=== PATIENT | male | born 1955 | race Caucasian/White ===

== ENCOUNTER 2020-11-01 16:07 | Outpatient (CLI) | payer BC, SELFPAY ==
--- NOTE | ~2020-11-01 | CT_ITS ---
EXAMINATION: CT abdomen pelvis wo con EXAM DATE: 11/01/2020 16:32 INDICATION: Prostate cancer, pelvic pain for one month. Prostatectomy. TECHNIQUE: Spiral CT of the abdomen and pelvis was performed without contrast. Axial, coronal and s agittal images were reviewed. The dose-length product (DLP) for this examination was 1150.24 mGy-cm. The exposure was tailored according to patient size (auto mA exposure control), and iterative recon struction (ASIR) was used as additional dose reduction technique. There is no prior study for compar christy. FINDINGS: The liver, spleen, adrenal glands and pancreas are unremarkable. Gallbladder is unremarkab le. No biliary obstruction. Bilateral renal peripelvic cysts. Punctate bilateral nephrolithiasis. No ureteral stones or hydronephrosis. Patient has likely had prostatectomy. The bladder is unremarkab le. There is no retroperitoneal or pelvic lymphadenopathy. There is mild scattered arterioscleroti c disease. The appendix is not positively visualized. There is no pericecal inflammatory change to suggest appe ndicitis. There is moderate sigmoid predominant colonic diverticulosis. There is no adjacent inflamm atory change to suggest diverticulitis. The stomach and small bowel are unremarkable. There is expec giovanna amount of colonic stool. No free intraperitoneal gas. The heart is normal in size. There are no pericardial or pleural effusions. The lung bases are unremarkable. 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 There are no osteoblastic or osteolytic lesions identified . IMPRESSION: 1. No acute intra-abdominal findings. 2. Moderate sigmoid diverticulosis. 3. Punctate bilateral nephrolithiasis. Reviewed, dictated and finalized at location A. SUPERINTENDENT
== END 2020-11-01 16:08 | disposition home or self-care (01) ==
PROVIDERS: PCP Internal Medicine; Visit Provider Urology
DX: C61 Malignant neoplasm of prostate (principal); K57.30 Diverticulosis of large intestine without perforation or abscess without bleeding; N20.0 Calculus of kidney
CPT/HCPCS: 74176

== ENCOUNTER 2025-01-11 15:47 | Outpatient (CLI) | payer MEDICARE, SELFPAY ==
--- NOTE | ~2025-01-11 | CT_ITS ---
CLINICAL INDICATION: Left ureteral stone COMPARISON: 11/01/2020. TECHNIQUE: Multiple contiguous axial images of the abdomen and pelvis were performed without the admi nistration of intravenous contrast The dose-length product (DLP) was 323.16 mGy-cm. Automated exposure control and iterative reconstruction technique were employed. FINDINGS/OBSERVATIONS: Visualized lower thorax: The bilateral lung bases are clear. The heart is of normal size, without pericardial effusion. Small hiatal hernia is present. Liver: The liver demonstrates homogeneous attenuation and is not enlarged measuring 18 cm in longitudinal di mension. Gallbladder and biliary system: The gallbladder is only minimally distended, and otherwise unremarkable. Pancreas: Limited evaluation of the pancreas secondary to the lack of intravenous contrast. Spleen: The spleen demonstrates homogeneous attenuation and is not enlarged measuring 8 cm in longitudinal di mension. Kidneys: Left-sided hydronephrosis, increased from prior, secondary to a 4 mm calculus in the distal left uret er, approximately 7 mm from the left ureterovesicular junction. 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 No renal calculi. Adrenal glands: Unremarkable. Gastrointestinal tract: Colonic diverticulosis without surrounding inflammatory change. Appendix: The appendix is not definitively visualized. However, no pericecal inflammatory change is identified suggest the presence of acute appendicitis. Vasculature: Calcified atherosclerotic disease. Lymph nodes: No pathologically enlarged or morphologically suspicious lymph nodes within the retroperitoneum or at the root of the mesentery. Pelvic structures: The bladder is minimally distended, and otherwise unremarkable. The prostate gland is absent. Body wall and musculoskeletal: Small fat-containing umbilical hernia. Degenerative disease within the lower lumbar spine at the level of L4/L5 with osteophyte formation, d isc space narrowing, endplate changes and vacuum phenomena. IMPRESSION: Left-sided hydroureteronephrosis secondary to a 4 mm calculus within the distal left ureter, just pro ximal to the left UVJ. Reviewed, dictated and finalized at location A. IMPRESSION: Left-sided hydroureteronephrosis secondary to a 4 mm calculus within the distal left ureter, just proximal to the left UVJ.
--- NOTE | ~2025-01-11 | XR_ITS ---
Exam: Abdomen 1V HISTORY: LT URETERAL STONE COMPARISON: Reference is made to a CT examination of the abdomen and pelvis, completed approximately 10 minutes earlier TECHNIQUE: Supine images of the abdomen FINDINGS: Bowel gas pattern is non-obstructive. There is no free air or deep sulci. 4 mm calculus within the left hemipelvis, approximately 16 mm lateral to the microclip. Lung bases are unremarkable. Bones and soft tissues are unremarkable. IMPRESSION: Nonspecific, nonobstructive bowel gas pattern. 4 mm calculus within the left hemipelvis, corresponding to the obstructing calculus seen today's CT e xamination. Reviewed, dictated and finalized at location A. IMPRESSION: Nonspecific, nonobstructive bowel gas pattern. 4 mm calculus within the left hemipelvis, corresponding to the obstructing calc ulus seen today's CT examination.
--- OUTSIDE RECORDS SUMMARY | 2025-01-11 17:42 | XMS_ITS | Clinical Summary ---
Author Organization [facility] Care Team Providers Care Cutter Hot Knife Name Role Phone Jose Marroquin MD Primary Care Provider [phone] Allergies No known active allergies Medications Aspirin 81 MG Tablet Take by mouth. Activ e Ibuprofen 200 MG Capsule Active LORazepam (ATIVAN) 1 MG Tablet Take by mouth. 3 Active esomeprazole (NEXIUM) 20 MG CAPSULE DELAYED RELEASE Take 1 Cap by mouth daily. 60 Cap 0 6 Active Additional Information Patient not taking.Reported on 05/08/2023 atorvastatin (LIPITOR) 10 MG Tablet TAKE ONE TABLET BY MOUTH EVERY NIGHT AT BEDTIME 90 Tab 3 6 Active lisinopril (PRINIVIL, ZESTRIL) 10 MG Tablet TAKE ONE TABLET BY MOUTH EVERY DAY 90 Tab 3 6 Active esomeprazole (NEXIUM) 40 MG CAPSULE DELAYED RELEASE Take 1 Cap by mouth daily. 30 Cap 5 6 Active levothyroxine (SYNTHROID) 25 MCG Tablet Take 1 Tab by mouth daily. 90 Tab 2 6 Active benazepril (LOTENSIN) 40 MG Tablet 3 Active amLODIPine (NORVASC) 5 MG Tablet Take 5 mg by mouth daily. 3 Active methylPREDNISol one (MEDROL DOSPACK) 4 MG Tablet Therapy Pack Use as per instructions on package. 21 Tablet 3 Active Active Problems Problem Noted Date Diagnosed Date HTN (hypertension) 11/03/2015 Hyperlipidemia 11/03/2015 Hypothyroidism 11/03/2015 Neoplasm of uncertain behavior of skin Immunizations Immunization Administration Dates Next Due Covid-19, Mrna, Lnp-s, Pf, 30 Mcg/0.3 Ml Dose (P fizer) 01/05/2021 Influenza Vaccine greater than 3 yrs 07/27/2014 Influenza, high-dose, trivalent, PF 07/28/2020,1 Pneumococcal Vaccine - 13 Valent 07/25/2020 TD VACCINE 10/27/2010 Zoster Vaccine Recombinant 06/30/2019,03/25/2019 Zoster Vaccine, live 10/27/2013 Family History Medical History Relation Name Comments No Known Problems Brother Cancer Father Cancer Mother Heart Disease Mother No Known Problems Sister Relation Name Status Comments Brother Alive Father Mother Sister Social History Tobacco Use Types Packs/Day Years Used Date Smoking Tobacco: Never Tobacco Cessation:Counseling Given: Not Answered Alcohol Use Standard Drinks/Week Comments Yes 0 (1 standard drink = 0.6 oz pur e alcohol) Sexually Active Control Partners Comments Not Currently Sex and Gender Information Value Date Recorded Sex Assigned at Not on file Legal Sex Male 1:16 PM CDT Gender Identity Not on file Sexual Orientation Not on file Last Filed Vital Signs Vital Sign Reading Time Taken Comments Blood Pressure 128/78 05/08/2023 8:00 AM CDT Pulse 73 05/08/2023 8:00 AM CDT Temperature 36.6 C (97.9 F) 05/08/2023 8:00 AM CDT Respiratory Rate 22 05/08/2023 8:00 AM CDT Oxygen Saturation 97% 05/08/2023 8:00 AM CDT Inhaled Oxygen Concentration - - Weight 108.9 kg (240 lb) 11/03/2015 4:09 PM HORSES OR MULES TEAMSTER Height 185.4 cm (6' 1 ) 11/03/2015 4:09 PM HORSES OR MULES TEAMSTER Body Mass Index 31.66 11/03/2015 4:09 PM HORSES OR MULES TEAMSTER Plan of Treatment Health Maintenance Due Date Last Done Comments Hepatitis C Virus (HCV) Screening 1955 Cologuard 2005 Immunochemical Fecal Occult Blood 2005 PSA Discussion 2010 Influenza Immunization (#1) 2024 10/0 03/2022, 08/18/2021, 07/28/2020, Additional history exists SARS-COV-2 Immunization ( season) 2024 10/11/2022, 06/05/2022, 08/03/2021, Additional history exists Respiratory Syncytial Virus (RSV) Immunization (Adult) (1 - 1-dose 75+ series) 2030 Colonoscopy 12/18/2031 12/18/2021, 10/05/2015 Colorectal Cancer Screening 12/18/2031 12/18/2021, 10/05/2015 Zoster Immunization Completed 06/30/2019, 03/25/2019, 02/25/2019, Additional history exists DTaP/Tdap/Td Immunization Discontinued 03/12/2021, 10/2010 TdaP Immunization Completed 03/12/2021 Pneumococcal Immunization (50+ years) Completed 08/18/2021, 07/25/2020 Pneumococcal Immunization Combined Discontinued 08/18/2021, 07/25/2020 Hepatitis B Immunization Aged Out No longer eligible based on patient's age to complete this topic Meningococcal Immunization (ACWY) Aged Out No longer eligible based on patient's age to complete this topic Rotavirus Immunization Aged Out No lo nger eligible based on patient's age to complete this topic Procedures Procedure Name Priority Date/Time Associated Diagnosis Comments COLONOSCOPY Routine 10/05/2015 from Last 3 Months or Most Recently Relevant to Health Maintenance Results * COLONOSCOPY (10/05/2015) Vivek Leija Jr., MD PROCEDURE/[facility] [place] GICAL ORDERABLES Final Result from Last 3 Months or Most Recently Relevant to Health Maintenance Insurance [employer]ARE Care Teams Cutter Hot Knife Relationship Specialty Start Date End Date Jose Marroquin MD PCP - General Internal Medicine 01/18/22
--- OUTSIDE RECORDS SUMMARY | 2025-01-11 17:42 | XMS_ITS | Clinical Summary ---
Author Organization [facility] Address [address] [place] [address] Care Team Providers Care Insurance Examiner Name Role Phone Rashaad Patino MD Primary Care Provider [phone] Source Comments [facility],non-owned Affiliates and Associated Physician Practices is amultiple site organization consisting of ambulatory clinics and hospital sitesin [place], [place], [place] and [place]. This disclosure is being madepursuant to the Care Everywhere program and may not contain all information available regarding this patient. Last updated 18.[facility] Allergies No known active allergies Medications * Be aware that medications may not be up to date on this document. Alwaysverify current medications with the patient. Medication Sig Dispensed Refills Start Date End Date Status atorvastatin (LIPITOR) 10 MG tablet Take 10 mg by mouth once daily Filled 10/30/20 for 90 days Active Esomeprazole Magnesium (NEXIUM PO) Take 40 mg by mouth daily with dinner Active Cholecalciferol 25 MCG (1000 UT) Take 1,000 Units by mouth once daily OTC - pt reports taking Active levothyroxine (SYNTHROID) 25 MCG tablet Take 25 mcg by mouth daily before breakfast Filled 10/30/20 for 90 days 10/30/2020 Active Multiple Vitamin (MULTI-VITAMIN) TABS Take 1 tablet by mouth Active GLUCOSAMINE-CHONDR OITIN PO Take 1 tablet by mouth once daily OTC supplement - pt reports taking it Active docusate sodium (COLACE) 100 MG capsule Take 100 mg by mouth 2 times daily as needed for Constipation For narcotic-induced constipation Active gabapentin (NEURONTIN) 300 MG capsule Take 600 mg by mouth 3 times daily Filled 12/09/20 for 30 days Active oxyCODONE-acetamin ophen (PERCOCET) 10-325 MG tablet Take 1 (one) tablet by mouth every 6 hours as needed for Pain Filled 12/01/20 for #120 tabs 12 tablet 12/21/2020 Active lisinopril (PRINIVIL; ZESTRIL) 10 MG tablet Take 1 (one) tablet by mouth once daily 12/21/2020 Active cyclobenzaprine (FLEXERIL) 10 MG tablet Take 1 (one) tablet by mouth 3 times daily as needed for Muscle Spasms Filled 12/01/20 for 30 days 30 tablet 12/21/2020 Active Active Problems Problem Noted Date Diagnosed Date Left leg pain 12/20/2020 Numbness of perineum 12/20/2020 Uncontrolled pain 12/20/2020 Family History Medical History Relation Name Comments Hypercholesterolemia Brother 2 Hypertension Brother 3 CAD (Coronary Artery Disease) Father Cancer Father Hypercholesterolemia Father Hypertension Father CAD (Coronary Artery Disease) Mother Cancer Mother Hypercholesterolemia Mother Hypertension Mother Cancer Sister 2 Relation Name Status Comments Brother 1 Alive Brother 2 Brother 3 Father Mother Sister 1 Sister 2 Social History Tobacco Use Types Packs/Day Years Used Date Smoking Tobacco: Never Alcohol Use Standard Drinks/Week Comments Yes 0 (1 standard drink = 0.6 oz pur e alcohol) Sex and Gender Information Value Date Recorded Sex Assigned at Not on file Gender Identity Not on file Sexual Orientation Not on file Last Filed Vital Signs Vital Sign Reading Time Taken Comments Blood Pressure 138/82 12/21/2020 11:00 AM PROTECTION CONSULTANT Pulse 82 12/21/2020 11:00 AM PROTECTION CONSULTANT Temperature 37 C (98.6 F) 12/21/2020 11:00 AM PROTECTION CONSULTANT Respiratory Rate 18 12/21/2020 11:00 AM PROTECTION CONSULTANT Oxygen Saturation 98% 12/21/2020 11:00 AM PROTECTION CONSULTANT Inhaled Oxygen Concentration - - Weight 104.3 kg (230 lb) 12/20/2020 1:41 PM PROTECTION CONSULTANT Height 185.4 cm (6' 1 ) 12/20/2020 1:41 PM PROTECTION CONSULTANT Body Mass Index 30.34 12/20/2020 1:41 PM PROTECTION CONSULTANT Plan of Treatment Health Maintenance Due Date Last Done Comments COLOGUARD (AGES 45-75) - COL ON CA SCREENING 1955 COLON MONITORING 1955 COLONOSCOPY - COLON CA SCREENING 1955 CT COLONOGRAPHY - COLON CA SCREENING 1955 Colorectal Cancer Screening 1955 FIT - COLON CA SCREENING 1955 FLEX SIG - COLON CA SCREENING 1955 HEPATITIS C SCREENING 03/28/1973 DTAP/TDAP/TD VACCINES (1 - Tdap) 1974 PNEUMOCOCCAL VACCINE 50+ (1 of 1 - PCV) 2005 ZOSTER VACCINE (1 of 2) 2005 SCREENING FOR DIABETES 12/21/2023 1, 12/20/2020, 09/22/2020 COVID-19 VACCINE (1 - 2023-2 5 season) 2024 INFLUENZA VACCINE (#1) 2024 07/27/2014 DEPRESSION SCREENING 10/27/2024 Respiratory Syncytial Virus (RSV) Vaccine Pt: or over 60 yrs (1 - 1-dose 75+ series) 2030 HEPATITIS B VACCINE Aged Out No longe r eligible based on patient's age to complete this topic HIB VACCINE Aged Out No longer eligi ble based on patient's age to complete this topic HPV VACCINE Aged Out No longer eligi ble based on patient's age to complete this topic MENINGOCOCCAL (Group B) VACCINE SHARED DECISION-MAKING Aged Out No longer eligible based on patient's age to complete this topic MENINGOCOCCAL GROUPS A/C/Y/W VACCINE Aged Out No longer eligible b ased on patient's age to complete this topic Procedures Procedure Name Priority Date/Time Associated Diagnosis Comments BASIC METABOLIC PANEL (CALCIUM TOTAL) AM Draw 12/21/2020 4:52 AM PROTECTION CONSULTANT Numbness of perineum from Last 3 Months or Most Recently Relevant to Health Maintenance Results * (ABNORMAL) BASIC METABOLIC PANEL (CALCIUM TOTAL) (12/21/2020 4:52 AM PROTECTION CONSULTANT) Glucose 97 70 - 105 mg/dL 12/21/2020 5:37 AM PROTECTION CONSULTANT [facility] Sodium 135(L) 136 - 145 mmol/L 12/21/2020 5:37 AM PROTECTION CONSULTANT [facility] Potassium 4.2 3.5 - 5.1 mmol/L 12/21/2020 5:37 AM PROTECTION CONSULTANT [facility] Chloride 107 98 - 107 mmol/L 12/21/2020 5:37 AM [facility] CO2 22(L) 23 - 31 mmol/L 12/21/2020 5:37 AM PROTECTION CONSULTANT [facility] Calcium 8.7 8.4 - 10.4 mg/dL 12/21/2020 5:37 AM [facility] Anion Gap 6(L) 8 - 18 mmol/L 12/21/2020 5:37 AM [facility] Comment:Attention clinician: Reference Range change. BUN 24 8.4 - 25.7 mg/dL 12/21/2020 5:37 AM [facility] Creatinine 0.79 0.72 - 1.25 mg/dL 12/21/2020 5:37 AM [facility] eGFR by MDRD >60 >60 mL/min/1.7 3m2 12/21/2020 5:37 AM [facility] eGFR by MDRD >60 >60 mL/min/1.7 3m2 12/21/2020 5:37 AM [facility] Blood BLOOD SPECIMEN / Unknown Venipuncture / Unknown 12/21/2020 4:52 AM PROTECTION CONSULTANT 12/21/2020 5:02 AM PROTECTION CONSULTANT Ro Solorio APRN-[facility] - POLICE JUDGE RY ORDERABLES [facility] [address] [place] [address] from Last 3 Months or Most Recently Relevant to Health Maintenance Advance Directives * Full Code (Latest Code Status on File) Date Activated Date Inactivated Comments 12/20/2020 3:36 PM 12/21/2020 12:23 PM Care Teams Insurance Examiner Relationship Specialty Start [place] [id number] [id number] PCP - General Internal Medicine 09/22/20
--- OUTSIDE RECORDS SUMMARY | 2025-01-11 17:42 | XMS_ITS ---
Author Organization [facility] Address [address] [place] [address] Care Team Providers Care Coil Inspector Name Role Phone Moise Flores MD Primary Care Provider Mario Banda MD Unavailable [phone] Charles Mina MD Unavailable [phone] Leopoldo Cutler MD Unavailable [phone] Shari Gaston MD Unavailable [phone] Active Problems Problem Noted Date Diagnosed Date Renal colic on left side 01/02/2025 History of colon polyps 11/25/2024 Assessment & Plan (11/25/2024 9:34 AM SLIP SEAT COVERER): - last colonoscopy 2021, repeat in 3-5 years, he has opted to repeat in 5 years per patient Basal cell carcinoma (BCC) of skin of nose 10/24 Assessment & Plan (11/25/2024 9:37 AM SLIP SEAT COVERER): - recent diagnosis from dermatology by Dr. Gaston - scheduled for Mohs surgery on 02/2025 Primary osteoarthritis of right knee 04/27/2024 Overview (11/25/2024): Follows with orthopedics Assessment & Plan (11/25/2024 9:26 AM SLIP SEAT COVERER): - chronic, recurring condition, not at goal - hx of remote injury of meniscus in right knee - follows with orthopedics and gets injections every 3 months, Dr. Banda - ok to use very sporadic use of NSAID Assessment & Plan (04/27/2024 8:56 AM CDT): - hx of remote injury of meniscus in right knee - follows with orthopedics and gets injections Situational anxiety 04/27/2024 Overview (04/27/2024): With flights Assessment & Plan (04/27/2024 9:06 AM CDT): - has used alprazolam for flights only for anxiety when flying in airplanes Erectile dysfunction 04/27/2024 Assessment & Plan (04/27/2024 9:13 AM CDT): - chronic condition - since prostatectomy - follows with urology - has tried medications and then injectables which do work for him - continue current management Healthcare maintenance 04/15/2023 Assessment & Plan (04/15/2023 3:27 PM CDT): Flu shot each July. COVID booster when next when available. Prevnar 13/Pneumovax 23 completed. Check on status of last tetanus booster. Shingrix completed. PSA yearly. Colonoscopy due November 2024. Will see him back in 6 months with lab sooner if needed. History of diverticulitis 2023 Overview (04/27/2024): Reprots 3 incidents, 2 times was treated with antibiotics Assessment & Plan (05/18/2023 1:54 PM CDT): May have had a viral issue or food-borne illness on top of his diverticulitis. Complete 3 more days of antibiotics. Start probiotics. Stool studies and call back for results. History of anemia 03/11/2022 Overview (04/15/2023): TSH, free T4 normal February 2022. Iron/ferritin low 02/2022. Colon with polyps 11/2021. Hgb/ferritin normalized after iron supplement and no blood donations. Anemia returned after donating 02/2023. Donates every 8 weeks. Assessment & Plan (11/25/2024 9:30 AM SLIP SEAT COVERER): - hx of anemia, not present now - recheck labs, order placed with results as shown below - has been on iron supplementation in the past - on daily multivitamin with iron - up to date with colonoscopy Lab Results Component Value Date WBC 5.7 11/19/2024 HGB 13.9 11/19/2024 HCT 43.5 11/19/2024 MCV 90.8 11/19/2024 LABPLAT 328 11/19/2024 Lab Results Component Value Date IRON 93 11/19/2024 TIBC 434 (H) 11/19/2024 FERRITIN 15 (L) 11/19/2024 Assessment & Plan (05/09/2024 11:05 PM CDT): - hx of anemia - recheck labs, order placed with results as shown below - has rose on iron supplementation in the past - up to date with colonoscopy Lab Results Component Value Date WBC 4.6 04/27/2024 HGB 14.1 04/27/2024 HCT 43.6 04/27/2024 MCV 86.7 04/27/2024 LABPLAT 320 04/27/2024 Lab Results Component Value Date IRON 75 04/27/2024 TIBC 386 04/27/2024 FERRITIN 24 (L) 04/27/2024 Assessment & Plan (04/15/2023 3:25 PM CDT): Recommend iron supplementation for 1 month after each donation. Check CBC in 1 year. Assessment & Plan (09/12/2022 1:55 PM SLIP SEAT COVERER): Hemoglobin and ferritin normalized after iron supplementation and holding blood donation. Repeat CBC before next visit. Assessment & Plan (03/11/2022 1:40 PM CDT): Probably due to frequent blood donation and iron deficiency. Check iron levels, B12, folate today. Thyroid studies currently normal for today's visit. Hold on blood donation until hemoglobin back to normal. Impaired fasting glucose 09/06/2021 Assessment & Plan (11/25/2024 9:29 AM SLIP SEAT COVERER): - chronic condition, waxes and wanes - Patient should reduce sugar and carbs, increase exercise, maintain proper body weight, and will check an A1c once or twice yearly. - most recent labs as shown below Lab Results Component Value Date HGBA1C 5.6 11/19/2024 HGBA1C 6.0 (H) 04/27/2024 HGBA1C 5.5 10/10/2023 Assessment & Plan (04/27/2024 9:16 AM CDT): Patient should reduce sugar and carbs, increase exercise, maintain proper body weight, and will check an A1c once or twice yearly. Lab Results Component Value Date HGBA1C 5.5 10/10/2023 HGBA1C 5.4 04/14/2023 HGBA1C 4.9 03/06/2022 Assessment & Plan (12/20/2023 10:37 AM SLIP SEAT COVERER): Patient should reduce sugar and carbs, increase exercise, maintain proper body weight, and will check an A1c once or twice yearly. Assessment & Plan (04/15/2023 3:26 PM CDT): Patient should reduce sugar and carbs, increase exercise, maintain proper body weight, and will check an A1c once or twice yearly. Assessment & Plan (09/12/2022 1:54 PM SLIP SEAT COVERER): Patient should reduce sugar and carbs, increase exercise, maintain proper body weight, and will check an A1c once or twice yearly. Assessment & Plan (03/11/2022 1:39 PM CDT): Patient should reduce sugar and carbs, increase exercise, maintain proper body weight, and will check an A1c once or twice yearly. Assessment & Plan (11/07/2021 10:21 AM SLIP SEAT COVERER): Patient should reduce sugar and carbs, increase exercise, maintain proper body weight, and will check an A1c once or twice yearly. Assessment & Plan (09/06/2021 9:28 AM SLIP SEAT COVERER): Patient should reduce sugar and carbs, increase exercise, maintain proper body weight, and will check an A1c once or twice yearly. Idiopathic neuropathy 03/01/2021 Overview (03/01/2021): Work up neg per Dr Brown. Assessment & Plan (04/27/2024 9:10 AM CDT): - chronic condition, progressive - unclear etiology, evaluated by Neurology Dr. 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 Reduce alcohol intake and take a multivitamin. History of pulmonary embolism 12/31/2020 Assessment & Plan (04/27/2024 9:07 AM CDT): Provoked pulmonary embolism (6 days after back surgery, immobility) - completed 6 months of anticoagulation with end date of June 2021. Assessment & Plan (03/01/2021 3:58 PM CDT): Provoked pulmonary embolism and would recommend 6 months of anticoagulation with end date of June 2021. History of back surgery 12/31/2020 Assessment & Plan (04/27/2024 9:05 AM CDT): - several years ago had severe pain in left buttocks and down into left leg, lumbar radiculopathy, L3-L4 protruding disc, lumbar radiculopathy - went to neurosurgery x 2 - was seeing pain management at [facility] - eventually became bed ridden - then got referred to a surgeon who saw his MRI and reports he diagnosed him and operated on him and gave him relief of pain and ability to talk - since surgery has numbness in posterior left thigh - uses Flexeril 10 mg as needed, which he has not taken in almost 6 months or more (initially started by pain management) - no longer following with pain management, no ongoing back pain now Acquired hypothyroidism 12/31/2020 Assessment & Plan (11/25/2024 9:23 AM SLIP SEAT COVERER): - chronic condition, stable status - Patient is asymptomatic on current dose of levothyroxine and TSH free T4 are normal and we will repeat levels before next visit. - continue current management Lab Results Component Value Date TSH 1.51 11/19/2024 Assessment & Plan (04/27/2024 8:56 AM CDT): - chronic condition, stable status - Patient is asymptomatic on current dose of levothyroxine and TSH free T4 are normal and we will repeat levels before next visit. - continue current management Lab Results Component Value Date TSH 1.06 10/10/2023 Assessment & Plan (12/20/2023 10:36 AM SLIP SEAT COVERER): Patient is asymptomatic on current dose of levothyroxine and TSH free T4 are normal and we will repeat levels before next visit. Assessment & Plan (04/15/2023 3:25 PM CDT): Patient is asymptomatic on current dose of levothyroxine and TSH free T4 are normal and we will repeat levels before next visit. Assessment & Plan (09/12/2022 1:55 PM SLIP SEAT COVERER): Patient is asymptomatic on current dose of levothyroxine and TSH free T4 are normal and we will repeat levels before next visit. Assessment & Plan (03/11/2022 1:38 PM CDT): Patient is asymptomatic on current dose of levothyroxine and TSH free T4 are normal and we will repeat levels before next visit. Assessment & Plan (11/07/2021 10:20 AM SLIP SEAT COVERER): Continue current dose of levothyroxine check levels before next visit. Assessment & Plan (09/06/2021 9:26 AM SLIP SEAT COVERER): Patient is asymptomatic on current dose of levothyroxine and TSH free T4 are normal and we will repeat levels before next visit. Assessment & Plan (03/01/2021 3:55 PM CDT): Continue current dose of levothyroxine and check levels before next visit. Essential hypertension 12/31/2020 Overview (11/07/2021): Significant swelling on amlodipine Assessment & Plan (11/25/2024 9:39 AM SLIP SEAT COVERER): Blood Pressure Management BP Readings from Last 3 Encounters: 11/25/24 132/78 10/07/24 126/70 07/08/24 144/84 Chronic condition Status - is adequately controlled. Current medications are: Amlodipine 5 mg daily, Benazepril 40 mg daily Patient is compliant with medications. Patient denies any side effects or adverse side effects from the medication/s. Follow a low salt diet Monitor blood pressure regularly at home The current medical regimen is effective; continue present plan and medications. The 10-year ASCVD risk score (Vanita HUNTLEY, et al., 2019) is: 18.5% Values used to calculate the score: Age: 69 years Sex: Male Is Non- : No Diabetic: No Tobacco smoker: No Systolic Blood Pressure: 132 mmHg Is BP treated: Yes HDL Cholesterol: 57 mg/dL Total Cholesterol: 184 mg/dL Lab Results Component Value Date LDLCALC 104 04/27/2024 Lab Results Component Value Date GLUCOSE 114 11/19/2024 CALCIUM 10.0 11/19/2024 SODIUM 140 11/19/2024 POTASSIUM 4.6 11/19/2024 CO2 26 11/19/2024 CHLORIDE 104 11/19/2024 BUNSER 22 11/19/2024 CREATININE 1.00 11/19/2024 Assessment & Plan (04/27/2024 8:55 AM CDT): Blood Pressure Management BP Readings from Last 3 Encounters: 04/27/24 122/88 03/30/24 142/93 12/18/23 132/86 Chronic condition Status - is adequately controlled. Current medications are: Amlodipine 5 mg daily, Benazepril 40 mg daily Patient is compliant with medications. Patient denies any side effects or adverse side effects from the medication/s. Follow a low salt diet Monitor blood pressure regularly at home Continue current management unless change made above The 10-year ASCVD risk score (Vanita HUNTLEY, et al., 2019) is: 14.2% Values used to calculate the score: Age: 69 years Sex: Male Is Non- : No Diabetic: No Tobacco smoker: No Systolic Blood Pressure: 122 mmHg Is BP treated: Yes HDL Cholesterol: 70 mg/dL Total Cholesterol: 169 mg/dL Lab Results Component Value Date LDLCALC 85 10/10/2023 Lab Results Component Value Date GLUCOSE 82 10/10/2023 CALCIUM 9.6 10/10/2023 SODIUM 140 10/10/2023 POTASSIUM 4.4 10/10/2023 CO2 25 10/10/2023 CHLORIDE 106 10/10/2023 BUNSER 26 (H) 10/10/2023 CREATININE 1.03 10/10/2023 Assessment & Plan (12/20/2023 10:37 AM SLIP SEAT COVERER): Blood pressure well controlled on amlodipine, benazepril Assessment & Plan (04/15/2023 3:26 PM CDT): Blood pressure well controlled on amlodipine, benazepril Assessment & Plan (09/12/2022 1:55 PM SLIP SEAT COVERER): Well controlled on the current regimen. Avoidance of salt, proper body weight, and routine exercise recommended. Assessment & Plan (03/11/2022 1:38 PM CDT): Well controlled on the current regimen. Avoidance of salt, proper body weight, and routine exercise recommended. Assessment & Plan (11/07/2021 10:20 AM SLIP SEAT COVERER): Edema resolved with discontinuation of amlodipine. Blood pressure well controlled on benazepril 40 mg daily. Check metabolic panel again before next visit. Assessment & Plan (09/06/2021 9:28 AM SLIP SEAT COVERER): Blood pressure close to goal but his swelling may be from amlodipine. If decreasing salt in his diet does not help And if his ultrasound is negative for DVT, consider Discontinue amlodipine. Will then increase lisinopril and check metabolic panel will see him back in 2 months for this evaluation. Assessment & Plan (03/01/2021 3:55 PM CDT): Well controlled on the current regimen. Avoidance of salt, proper body weight, and routine exercise recommended. History of prostate cancer 12/31/2020 Overview (03/01/2021): S/p prostatectomy 08/2018, Followed by Dr mina with PSA q 6 months Assessment & Plan (11/25/2024 9:28 AM SLIP SEAT COVERER): - S/p prostatectomy 08/2018, Followed by Dr mina with PSA q 6 months - Follow-up with his urologist for JERRY and PSAs as they direct. - PSA done by Urology Assessment & Plan (04/27/2024 8:55 AM CDT): - S/p prostatectomy 08/2018, Followed by Dr mina with PSA q 6 months - Follow-up with his urologist for JERRY and PSAs as they direct. Assessment & Plan (03/11/2022 1:39 PM CDT): Follow-up with his urologist for JERRY and PSAs as they direct. Assessment & Plan (03/01/2021 3:55 PM CDT): Followed by urology with PSAs checked every 6 months per patient's report. Currently no symptoms. Gastroesophageal reflux disease 05/07/2016 Assessment & Plan (11/25/2024 9:27 AM SLIP SEAT COVERER): - chronic condition, stable status - currently on generic Nexium - esomeprazole DR 40 mg daily The current medical regimen is effective; continue present plan and medications. Assessment & Plan (04/27/2024 8:57 AM CDT): - chronic condition, stable status - currently on generic Nexium - esomeprazole DR 40 mg daily - continue current management Assessment & Plan (03/11/2022 1:39 PM CDT): Well controlled on generic Nexium. Assessment & Plan (03/01/2021 3:55 PM CDT): Continue current PPI and the patient is aware of the long-term risks posed by chronic PPI usage. Calcium supplementation recommended. Mixed hyperlipidemia 11/03/2015 Assessment & Plan (11/25/2024 9:27 AM SLIP SEAT COVERER): - chronic condition - status: is adequately controlled. - current management/medications: Atorvastatin 10 mg nightly - other comorbid conditions:Obesity, hypertension - patient is compliant with medications. - most recent LDL as shown below - maintain a healthy weight, diet - will monitor closely - continue current management Lab Results Component Value Date CHOL 184 04/27/2024 CHOL 169 10/10/2023 CHOL 187 04/14/2023 Lab Results Component Value Date HDL 57 04/27/2024 HDL 70 10/10/2023 HDL 51 04/14/2023 Lab Results Component Value Date LDLCALC 104 04/27/2024 LDLCALC 85 10/10/2023 LDLCALC 85 04/14/2023 Lab Results Component Value Date TRIG 114 04/27/2024 TRIG 71 10/10/2023 TRIG 255 (H) 04/14/2023 Lab Results Component Value Date ALT 20 11/19/2024 AST 17 11/19/2024 ALKPHOS 60 11/19/2024 BILITOT 0.5 11/19/2024 Assessment & Plan (04/27/2024 8:57 AM CDT): - chronic condition - status: is adequately controlled. - current management/medications: Atorvastatin 10 mg nightly - other comorbid conditions:Obesity, hypertension - patient is compliant with medications. - most recent LDL as shown below - maintain a healthy weight, diet - will monitor closely - continue current management Lab Results Component Value Date LDLCALC 85 10/10/2023 Lab Results Component Value Date ALT 16 10/10/2023 AST 20 10/10/2023 ALKPHOS 61 10/10/2023 BILITOT 0.5 10/10/2023 Assessment & Plan (12/20/2023 10:37 AM SLIP SEAT COVERER): Well controlled on current therapy and will check a lipid panel and LFTs in 6 months. Assessment & Plan (04/15/2023 3:26 PM CDT): Well controlled on current therapy and will check a lipid panel and LFTs in 6 months. Diet and exercise for elevated triglycerides. Assessment & Plan (09/12/2022 1:54 PM SLIP SEAT COVERER): Well controlled on current therapy and will check a lipid panel and LFTs in 6 months. Assessment & Plan (03/11/2022 1:39 PM CDT): Well controlled on current therapy and will check a lipid panel and LFTs in 6 months. Assessment & Plan (11/07/2021 10:21 AM SLIP SEAT COVERER): Continue his atorvastatin check lipids and LFTs before next visit. Assessment & Plan (09/06/2021 9:27 AM SLIP SEAT COVERER): Well controlled on current therapy and will check a lipid panel and LFTs in 6 months. If lower extremity crampy pain does not improve, consider holding statin therapy for trial. Assessment & Plan (03/01/2021 3:56 PM CDT): Continue current dose of atorvastatin and check lipids and LFTs before next visit. Current Treatment and Therapy Plans No current plan information found. Past Treatment and Therapy Plans No past plan information found. Lifetime Dose Tracking * Chemical Lifetime Dose Automatic Entry Manual Entr y Fluoro Time 0.507 minutes 0.507 minutes 0 minutes Air kerma at the reference point (Ka,r) 15.31 mGy 1 5.31 mGy 0 mGy Resolved Problems Problem Noted Date Diagnosed Date Resolved Date Chronic pain of right knee 04/15/2023 0 04/27/2024 Assessment & Plan (04/15/2023 3:26 PM CDT): Continue Voltaren gel and recommend orthopedic referral. Right hip pain 04/15/2023 04/27/2024 Assessment & Plan (04/15/2023 3:27 PM CDT): Orthopedic referral Diarrhea 2023 04/27/2024 Assessment & Plan (05/18/2023 1:54 PM CDT): Stool studies and call back for results. Renal insufficiency 2023 04/27/20 24 Assessment & Plan (05/18/2023 1:54 PM CDT): Increase hydration check metabolic panel before next visit Abnormal transaminases 09/12/202204/27 Assessment & Plan (09/12/2022 1:55 PM SLIP SEAT COVERER): Most likely related to his episode of diverticulitis. LFTs before next visit. Lower abdominal pain 08/28/2022 024 Assessment & Plan (08/28/2022 11:01 AM CDT): RLQ on exam. Suspicious for Diverticulitis. STAT CT abdomen and Pelvis ordered. Labs ordered and UA ordered to rule out UTI. Discussed with patient. Will call him with results by the end of the day. F/u with Dr. Marroquin as scheduled. Coccyx pain 03/10/2022 11/25/2024 Assessment & Plan (03/11/2022 1:41 PM CDT): MRI and bone scan unremarkable. Follow-up with pain management as they direct. Assessment & Plan (03/10/2022 12:12 PM CDT): Most likely scenario is loss of protection of his coccyx area with his significant weight loss. May have a bone bruise from prolonged sitting. MRI unremarkable. PSA undetectable in October. With history of prostate cancer will check a bone scan and he will call back for results. Otherwise protect the area as much as possible follow-up with pain management as they direct Pain in both lower extremities 09/06/2021 04/27/2024 Assessment & Plan (11/07/2021 10:21 AM SLIP SEAT COVERER): Resolved with resolution of his peripheral edema. Assessment & Plan (09/06/2021 9:28 AM SLIP SEAT COVERER): Hold call bilateral lower extremity venous Doppler to rule out DVT. If negative, would then recommend ABIs to rule out arterial insufficiency. Then hold statin therapy. If no success, will need to see his neurosurgeon again. Medicare annual wellness visit, subsequent 03/01/2021 04/27/2024 Assessment & Plan (03/11/2022 1:40 PM CDT): We discussed a comprehensive list of medical conditions and proposed recommendations for each. We discussed the importance of increased exercise, fall prevention, proper nutrition, and suggested joining [employer] to accomplish most of these goals. Patient was given an age appropriate Medicare preventive services checklist. Please see the EMR regarding details of their health risk assessment and preventive services checklist. Patient will be traveling to [place] and requests short supply of Xanax to help with travel anxiety. Will see him back in 6 months with lab sooner if needed. Assessment & Plan (03/01/2021 3:57 PM CDT): We discussed a comprehensive list of medical conditions and proposed recommendations for each. We discussed the importance of increased exercise, fall prevention, proper nutrition, and suggested joining [employer] to accomplish most of these goals. Patient was given an age appropriate Medicare preventive services checklist. Please see the EMR regarding details of their health risk assessment and preventive services checklist. Will see him back in 6 months with lab sooner if needed. At low risk for fall 03/01/2021 024 Assessment & Plan (03/11/2022 1:39 PM CDT): Timed get up and go test normal. Assessment & Plan (03/01/2021 3:57 PM CDT): Timed get up and go test normal. Tachycardia 01/02/2021 01/02/2021 Lumbar radiculopathy 12/01/2020 024 DDD (degenerative disc disease), lumbar 12/01/2020 11/25/2024 Assessment & Plan (09/06/2021 9:26 AM SLIP SEAT COVERER): I amsuspecting his lower extremity crampy pain with activities his due to his lumbar degenerative disc disease. He may need to follow-up with neurosurgeon eventually. Insomnia secondary to chronic pain 12/01/2020 04/27/2024
--- OUTSIDE RECORDS SUMMARY | 2025-01-11 17:43 | XMS_ITS | Referral Summary ---
Author Organization [facility] Address [address] [place] [address] Care Team Providers Care [employer] Lab Technician Name Role Phone Moise Flores MD Primary Care Provider Mario Banda MD Unavailable [phone] Charles Reddy MD Unavailable [phone] Leopoldo Cutler MD Unavailable [phone] Shari Gaston MD Unavailable [phone] Encounters Date Type Department Care Team Description 01/07/2025 8:26 AM CDT - 01/07/2025 11:59 PM CDT Hospital Encounter [facility] Orthopedics and Sports Medicine [address] [place] [phone] Discharge Disposition: Discharge to home or self care 01/07/2025 8:15 AM CDT Office Visit [facility] Orthopedics and Sports Medicine [address] [place] [phone] Patricia Alfaro NP Primary osteoarthritis of right knee (Primary Dx) 01/05/2025 [facility] ED Outreach [facility] Care Organization [address] [place] [id number] Artemio Rodriguez MA 01/02/2025 5:04 PM CDT - 01/02/2025 7:36 PM CDT Emergency [facility] Emergency Department [address] [place] [address] Renal colic on left side (Primary Dx) Discharge Disposition: Discharge to home or self care 11/25/2024 9:00 AM [employer] Office Visit [facility] Primary Care at [address] [phone] Moise Flores MD Medicare annual wellness visit, subsequent (Primary Dx); Acquired hypothyroidism; Basal cell carcinoma (BCC) of skin of nose; Mixed hyperlipidemia; Gastroesophageal reflux disease, unspecified whether esophagitis present; Essential hypertension; Primary osteoarthritis of right knee; History of prostate cancer; Impaired fasting glucose; History of anemia; History of colon polyps 11/19/2024 9:00 AM [employer]OTIVE [employer] MECH[employer]IC [address] [phone] Acquired hypothyroidism; Anemia, unspecified type; Impaired fasting glucose; Mixed hyperlipidemia from Last 3 Months Allergies No known active allergies Medications multivitamin tablet tabletIndicatio ns:Vitamin Deficiency Prevention Take 1 tablet by mouth Active glucosamine HCl 750 mg tablet Take by mouth Ac tive cholecalciferol (VITAMIN D-3) 1,000 unit tablet Take 1 tablet (1,000 Units total) by mouth daily Active ALPRAZolam (XANAX) 0.5 mg tablet Take 1 tablet (0.5 mg total) by mouth 2 (two) times a day as needed for anxiety 20 tablet 022 Active Additional Information Patient not taking.Reported on 01/07/2025 aspirin 81 mg enteric coated tablet Take 1 tablet (81 mg total) by mouth daily Active amLODIPine (NORVASC) 5 mg tabletIndicatio ns:Essential hypertension Take 1 tablet (5 mg total) by mouth daily 90 tablet 3 024 Active levothyroxine (SYNTHROID) 25 mcg tablet TAKE 1 TABLET BY MOUTH ONCE DAILY IN THE MORNING BEFORE BREAKFAST 100 tablet 1 024 Active tamsulosin (FLOMAX) 0.4 mg extended release capsuleIndicati ons:Renal colic on left side Take 1 capsule (0.4 mg total) by mouth daily Take as directed to help propel kidney stone. Collaborating physician Rashaad Maier MD 10 capsule 025 Active metoclopramide (REGLAN) 10 mg tablet Take 1 tablet (10 mg total) by mouth every 8 (eight) hours as needed (Nausea and abdominal cramps) Collaborating physician Rashaad Maier MD 20 tablet Active Additional Information Patient not taking.Reported on 01/07/2025 acetaminophen-c odeine (TYLENOL with CODEINE #4) 300-60 mg per tabletIndicatio ns:Renal colic on left side Take 0.5-1 tablets by mouth every 6 (six) hours as needed for pain P.r.n. pain not relieved by ketorolac alone. Take with food. Collaborating physician Rashaad Maier MD 10 tablet Active Additional Information Patient not taking.Reported on 01/07/2025 ketorolac (TORADOL) 10 mg tabletIndicatio ns:Renal colic on left side Take 1 tablet (10 mg total) by mouth every 6 (six) hours as needed for pain Collaborating physician Rashaad Maier MD 20 tablet Active Additional Information Patient not taking.Reported on 01/07/2025 benazepriL (LOTENSIN) 40 mg tablet Take 1 tablet by mouth once daily 100 tablet [address] (NexIUM) 40 mg capsule TAKE 1 CAPSULE BY MOUTH ONCE DAILY BEFORE BREAKFAST 100 capsule 1 025 Active atorvastatin (LIPITOR) 10 mg tablet Take 1 tablet by mouth once daily 100 tablet 1 025 Active benazepriL (LOTENSIN) 40 mg tablet Take 1 tablet by mouth once daily 100 tablet 1 [address] (NexIUM) 40 mg capsule TAKE 1 CAPSULE BY MOUTH ONCE DAILY BEFORE BREAKFAST 100 capsule 024 2024 Discontinued atorvastatin (LIPITOR) 10 mg tablet Take 1 tablet by mouth once daily 100 tablet 1 024 2024 Discontinued Hospital, Clinic, or Other Facility Administered Medication Ordered Dose Route Frequency Start Date End Date Status lidocaine (XYLOCAINE) 20 mg/mL (2 %) injection 3 mLIndications:Admini stration of Local Anesthesia 3 mL One-Time Injection 01/07/2025 5 Ended methylPREDNISolone acetate (DEPO-medrol) injection 80 mgIndications:Primar y osteoarthritis of right knee 80 mg intra-artic One-Time Injection 01/07/2025 5 Ended Active Problems Problem Noted Date Diagnosed Date Renal colic on left side 01/02/2025 History of colon polyps 11/25/2024 Assessment & Plan (11/25/2024 9:34 AM AUTOMOTIVE [employer]IC): - last colonoscopy 2021, repeat in 3-5 years, he has opted to repeat in 5 years per patient Basal cell carcinoma (BCC) of skin of nose 10/24 Assessment & Plan (11/25/2024 9:37 AM AUTOMOTIVE [employer] MECH[employer]IC): - recent diagnosis from dermatology by Dr. Gaston - scheduled for Mohs surgery on 02/2025 Primary osteoarthritis of right knee 04/27/2024 Overview (11/25/2024): Follows with orthopedics Assessment & Plan (11/25/2024 9:26 AM AUTOMOTIVE AIR[employer] MECHANIC): - chronic, recurring condition, not at goal [...] weeks. Assessment & Plan (11/25/2024 9:30 AM AUTOMOTIVE AIR[employer]ING MECHANIC): - hx of anemia, not present now [...] year. Assessment & Plan (09/12/2022 1:55 PM AUTOMOTIVE AIR[employer] MECHANIC): Hemoglobin and ferritin normalized after iron supplementation [...] 09/06/2021 Assessment & Plan (11/25/2024 9:29 AM AUTOMOTIVE AIR[employer]ING MECHANIC): - chronic condition, waxes and wanes - [...] 03/06/2022 Assessment & Plan (12/20/2023 10:37 AM AUTOMOTIVE AIRCON[employer]ING MECHANIC): Patient should reduce sugar and carbs, increase exercise, maintain proper body weight, and will check an A1c once or twice yearly. Assessment & Plan (04/15/2023 3:26 PM CDT): Patient should reduce sugar and carbs, increase exercise, maintain proper body weight, and will check an A1c once or twice yearly. Assessment & Plan (09/12/2022 1:54 PM AUTOMOTIVE AIR[employer]ING MECHANIC): Patient should reduce sugar and carbs, increase exercise, maintain proper body weight, and will check an A1c once or twice yearly. Assessment & Plan (03/11/2022 1:39 PM CDT): Patient should reduce sugar and carbs, increase exercise, maintain proper body weight, and will check an A1c once or twice yearly. Assessment & Plan (11/07/2021 10:21 AM AUTOMOTIVE AIR[employer]ING MECHANIC): Patient should reduce sugar and carbs, increase exercise, maintain proper body weight, and will check an A1c once or twice yearly. Assessment & Plan (09/06/2021 9:28 AM AUTOMOTIVE AIR[employer]DITIONING MECHANIC): Patient should reduce sugar and carbs, increase [...] feet and calves, no significant pain - emt intermediate - 10 years or more - has [...] 2 - was seeing pain management at [facility] - eventually became bed ridden - then [...] 12/31/2020 Assessment & Plan (11/25/2024 9:23 AM AUTOMOTIVE [employer]ING MECH[employer]IC): - chronic condition, stable status - Patient [...] 10/10/2023 Assessment & Plan (12/20/2023 10:36 AM AUTOMOTIVE AIRCON[employer]ING MECHANIC): Patient is asymptomatic on current dose of levothyroxine and TSH free T4 are normal and we will repeat levels before next visit. Assessment & Plan (04/15/2023 3:25 PM CDT): Patient is asymptomatic on current dose of levothyroxine and TSH free T4 are normal and we will repeat levels before next visit. Assessment & Plan (09/12/2022 1:55 PM AUTOMOTIVE AIR[employer] MECH[employer]IC): Patient is asymptomatic on current dose of levothyroxine and TSH free T4 are normal and we will repeat levels before next visit. Assessment & Plan (03/11/2022 1:38 PM CDT): Patient is asymptomatic on current dose of levothyroxine and TSH free T4 are normal and we will repeat levels before next visit. Assessment & Plan (11/07/2021 10:20 AM AUTOMOTIVE AIRCON[employer]ING MECHANIC): Continue current dose of levothyroxine check levels before next visit. Assessment & Plan (09/06/2021 9:26 AM AUTOMOTIVE AIRCON[employer]ING MECHANIC): Patient is asymptomatic on current dose of levothyroxine and TSH free T4 are normal and we will repeat levels before next visit. Assessment & Plan (03/01/2021 3:55 PM CDT): Continue current dose of levothyroxine and check levels before next visit. Essential hypertension 12/31/2020 Overview (11/07/2021): Significant swelling on amlodipine Assessment & Plan (11/25/2024 9:39 AM AUTOMOTIVE AIR[employer] MECHANIC): Blood Pressure Management BP Readings from Last [...] 10/10/2023 Assessment & Plan (12/20/2023 10:37 AM AUTOMOTIVE AIR[employer]ING MECHANIC): Blood pressure well controlled on amlodipine, benazepril Assessment & Plan (04/15/2023 3:26 PM CDT): Blood pressure well controlled on amlodipine, benazepril Assessment & Plan (09/12/2022 1:55 PM AUTOMOTIVE [employer] MECHANIC): Well controlled on the current regimen. Avoidance of salt, proper body weight, and routine exercise recommended. Assessment & Plan (03/11/2022 1:38 PM CDT): Well controlled on the current regimen. Avoidance of salt, proper body weight, and routine exercise recommended. Assessment & Plan (11/07/2021 10:20 AM AUTOMOTIVE AIRCONDITIONING MECHANIC): Edema resolved with discontinuation of amlodipine. Blood pressure well controlled on benazepril 40 mg daily. Check metabolic panel again before next visit. Assessment & Plan (09/06/2021 9:28 AM AUTOMOTIVE AIRCON[employer]ING MECHANIC): Blood pressure close to goal but his [...] (03/01/2021): S/p prostatectomy 08/2018, Followed by Dr reddy with PSA q 6 months Assessment & Plan (11/25/2024 9:28 AM AUTOMOTIVE AIR[employer]ING MECHANIC): - S/p prostatectomy 08/2018, Followed by Dr reddy with PSA q 6 months - Follow-up with his urologist for JERRY and PSAs as they direct. - PSA done by Urology Assessment & Plan (04/27/2024 8:55 AM CDT): - S/p prostatectomy 08/2018, Followed by Dr reddy with PSA q 6 months - Follow-up [...] 05/07/2016 Assessment & Plan (11/25/2024 9:27 AM AUTOMOTIVE AIR[employer] MECHANIC): - chronic condition, stable status - currently [...] 11/03/2015 Assessment & Plan (11/25/2024 9:27 AM AUTOMOTIVE AIR[employer] MECHANIC): - chronic condition - status: is adequately [...] 10/10/2023 Assessment & Plan (12/20/2023 10:37 AM AUTOMOTIVE AIR[employer]ING MECHANIC): Well controlled on current therapy and will check a lipid panel and LFTs in 6 months. Assessment & Plan (04/15/2023 3:26 PM CDT): Well controlled on current therapy and will check a lipid panel and LFTs in 6 months. Diet and exercise for elevated triglycerides. Assessment & Plan (09/12/2022 1:54 PM AUTOMOTIVE [employer]ING MECHANIC): Well controlled on current therapy and will check a lipid panel and LFTs in 6 months. Assessment & Plan (03/11/2022 1:39 PM CDT): Well controlled on current therapy and will check a lipid panel and LFTs in 6 months. Assessment & Plan (11/07/2021 10:21 AM AUTOMOTIVE AIR[employer]ING MECHANIC): Continue his atorvastatin check lipids and LFTs before next visit. Assessment & Plan (09/06/2021 9:27 AM AUTOMOTIVE AIRCON[employer]ING MECHANIC): Well controlled on current therapy and will check a lipid panel and LFTs in 6 months. If lower extremity crampy pain does not improve, consider holding statin therapy for trial. Assessment & Plan (03/01/2021 3:56 PM CDT): Continue current dose of atorvastatin and check lipids and LFTs before next visit. Resolved Problems Problem Noted Date Diagnosed Date [...] back for results. Renal insufficiency 2023 04/27/20 Assessment & Plan (05/18/2023 1:54 PM CDT): Increase hydration check metabolic panel before next visit Abnormal transaminases 09/12/202204/27 Assessment & Plan (09/12/2022 1:55 PM AUTOMOTIVE [employer] MECHANIC): Most likely related to his episode of [...] 04/27/2024 Assessment & Plan (11/07/2021 10:21 AM AUTOMOTIVE AIRCONDITIONING MECHANIC): Resolved with resolution of his peripheral edema. Assessment & Plan (09/06/2021 9:28 AM AUTOMOTIVE AIRCONDITIONING MECHANIC): Hold call bilateral lower extremity venous Doppler [...] needed. At low risk for fall 03/01/2021 Assessment & Plan (03/11/2022 1:39 PM CDT): Timed get up and go test normal. Assessment & Plan (03/01/2021 3:57 PM CDT): Timed get up and go test normal. Tachycardia 01/02/2021 01/02/2021 Lumbar radiculopathy 12/01/2020 024 DDD (degenerative disc disease), lumbar 12/01/2020 11/25/2024 Assessment & Plan (09/06/2021 9:26 AM AUTOMOTIVE AIRCONDITIONING MECHANIC): I amsuspecting his lower extremity crampy pain with activities his due to his lumbar degenerative disc disease. He may need to follow-up with neurosurgeon eventually. Insomnia secondary to chronic pain 12/01/2020 04/27/2024 Immunizations Immunization Administration Dates Next Due Influenza, Quadrivalent, Hig h Dose, Preservative Free, Intrr 07/18/2023,08/01/2022,08/18/2021 Influenza, Quadrivalent, Spl it, Intramuscular 08/20/2019 Influenza, Quadrivalent, Spl it, Preservative Free, Intramuscular 07/28/2017 Influenza, Trivalent, High D ose, Split, Preservative Free, Intramuscular 07/28/2020,07/28/2018 Influenza, Trivalent, IM (MDV) 07/27/2014 Influenza, Unspecified 09/30/2024 Pfizer SARS-CoV-2 Monovalent Vaccination (12+ Yrs) PURPLE 01/30/2021,01/05/2021 Pneumococcal Conjugate PCV 13 07/25/2020 Pneumococcal Polysaccharide PPV23 08/18/2021 Td, adsorbed 10/27/2010 ZOSTER LIVE 11/09/2013,10/27/2013 ZOSTER Recombinant 06/30/2019,03/25/2019 Social History Tobacco Use Types Packs/Day Years Used Date Smoking Tobacco: Never Smokeless Tobacco: Never Tobacco Cessation:Counseling Given: Not Answered Alcohol Use Standard Drinks/Week Comments Yes 0 (1 standard drink = 0.6 oz pur e alcohol) AUDIT-C Answer Date Recorded Q1: How often do you have a drink containing alc ohol? Monthly or less 01/07/2025 Q2: How many drinks containi ng alcohol do you have on a typical day when you are drinking? 1 or 2 01/07/2025 Q3: How often do you have si x or more drinks on one occasion? Monthly 01/07/2025 PHQ-2 Answer Date Recorded PHQ-2 Total Score (If total score is 3 or more points, staff should administer the PHQ-9) 0 11/25/2024 Personal Safety Answer Date Recorded Have you ever been in or are you currently in a harmful physical or emotional relationship or is someone making you feel afraid or unsafe? Denies 01/02/2025 Sex and Gender Information Value Date Recorded Sex Assigned at Not on file Legal Sex Male 11:59 AM AUT[employer]OTIVE [employer] MECH[employer]IC Gender Identity Male 12/07/2021 1:13 PM [employer]OTIVE [employer] MECH[employer]IC Sexual Orientation Not on file Last Filed Vital Signs Vital Sign Reading Time Taken Comments Blood Pressure 124/70 01/07/2025 8:17 AM CDT Pulse 76 01/07/2025 8:17 AM CDT Temperature 36.3 C (97.4 F) 01/02/2025 4:50 PM CDT Respiratory Rate 20 01/02/2025 7:30 PM CDT Oxygen Saturation 100% 01/02/2025 7:30 PM CDT Inhaled Oxygen Concentration - - Weight 104.3 kg (230 lb) 01/07/2025 8:17 AM CDT Height 185.4 cm (6' 1 ) 01/07/2025 8:17 AM CDT Body Mass Index 30.34 01/07/2025 8:17 AM CDT Plan of Treatment Not on file Procedures Procedure Name Priority Date/Time Associated Diagnosis Comments XR KNEE RIGHT 4 OR MORE VIEWS Schedule Routine, Read Routine (OP Routine) 01/07/2025 8:27 AM CDT Primary osteoarthritis of right knee DC ARTHROCENTESIS ASPIR&/INJ MAJOR JT/BURSA W/O US Routine 01/07/2025 8:15 AM CDT Primary osteoarthritis of right knee CT ABDOMEN PELVIS W CONTRAST ED 01/02/2025 6:16 PM CDT EGFR STAT 01/02/2025 4:56 PM CDT DIFFERENTIAL AUTO STAT 01/02/2025 4:5 6 PM CDT LIPASE STAT 01/02/2025 4:56 PM CDT COMPREHENSIVE METABOLIC PANEL STAT 01/02/2025 4:56 PM CDT CBC WITH AUTO DIFFERENTIAL STAT 01/02/2025 4:56 PM CDT DIABETIC EYE EXAM Routine 11/22/2024 EGFR Routine 11/19/2024 9:15 AM AUT[employer]IVE [employer]IC Mixed hyperlipidemia DIFFERENTIAL AUTO Routine 11/19/2024 9:1 5 AM AUT[employer]IVE [employer] MECH[employer]IC Anemia, unspecified type COMPREHENSIVE METABOLIC PANEL Routine 11/19/2024 9:15 AM AUTOMOTIVE [employer]ING MECH[employer]IC Mixed hyperlipidemia HEMOGLOBIN A1C Routine 11/19/2024 9:15 AM AUTOMOTIVE [employer]ING MECH[employer]IC Impaired fasting glucose IRON PROFILE W/ IBC Routine 11/19/2024 9 :15 AM AUTOMOTIVE [employer]ING MECHANIC Anemia, unspecified type FERRITIN Routine 11/19/2024 9:15 AM AUTOMOTIVE [employer]ING MECHANIC Anemia, unspecified type CBC WITH AUTO DIFFERENTIAL Routine 11/19/2024 9:15 AM AUTOMOTIVE [employer]ING MECHANIC Anemia, unspecified type THYROID FUNCTION CASCADE Routine 11/19/2024 9:15 AM AUTOMOTIVE [employer]ING MECH[employer]IC Acquired hypothyroidism HEPATITIS PANEL, ACUTE Routine 10/10/2023 9:16 AM AUTOMOTIVE [employer] MECH[employer]IC Encounter for hepatitis C screening test for low risk patient PSA SCREEN Routine 04/14/2023 6:30 AM CDT Screening PSA (prostate specific antigen) COLONOSCOPY 12/18/2021 7:19 AM AUTOMOTIVE [employer]ING MECHANIC from Last 3 Months or Most Recently Relevant to Health Maintenance Results * XR Knee Right 4 or More Views (01/07/2025 8:27 AM CDT) Anatomical Region Laterality Modality Lower Extremities, Knee Right Digital Radiography Narrative 01/07/2025 8:30 AM CDT Radiographs taken of the right knee today reveal mild to moderate degenerative changes with subchondral sclerosis, osteophyte formation, and diminished joint space. Patricia Alfaro NP IMG XR PROCEDURES Final Result * DC ARTHROCENTESIS ASPIR&/INJ MAJOR JT/BURSA W/O US (01/07/2025 8:15 AM CDT) Narrative Patricia Alfaro NP - 01/07/2025 8:15 AM CDT Patricia Alfaro NP 01/07/2025 8:39 AM Large Joint (Hip, Knee, Shoulder) Injection: R knee Performed by: Patricia Alfaro NP Authorized by: Patricia Alfaro NP Large Joint Injection/Aspiration: Consent Given by: Patient Site marked: the procedure site was marked Timeout: prior to procedure the correct patient, procedure, and site was verified Verbal consent obtained: Yes Supporting Documentation: Indications: Pain Procedure Details: Location: Knee Site: R knee Needle Size: 22 G Approach: Anterolateral Ultrasound guided: No Fluroscopic guidance: No Medications: 80 mg methylPREDNISolone acetate 80 mg/mL; 3 mL lidocaine 20 mg/mL (2 %) Patient tolerance: Patient tolerated the procedure well with no immediate complications Patricia Alfaro NP IN CLINIC/BEDSIDE ORDER VALENTINE Final Result * CT Abdomen Pelvis W Contrast (01/02/2025 6:16 PM CDT) Anatomical Region Laterality Modality Body N/A Computed Tomogra phy 01/02/2025 6:24 PM CDT Narrative 01/02/2025 6:33 PM CDT EXAM DESCRIPTION: CT ABDOMEN PELVIS W CONTRAST REASON FOR STUDY: Abdominal/flank pain, stone suspected, LLQ abdominal pain Abdominal pain onset about 1500 today. TECHNIQUE: CT scan of the abdomen and pelvis performed with intravenous and without oral contrast using helical scanning technique with dynamic intravenous contrast injection. Reconstructed coronal and sagittal MPR images reviewed. All images stored on PACS. Automated exposure control was used as a dose optimization technique for this examination. CONTRAST TYPE/DOSE: 100mL of IOVERSOL 350 MG IODINE/ML INTRAVENOUS SYRINGE injected via intravenous COMPARISON: 04/01/2023 FINDINGS: LOWER CHEST: No significant pulmonary abnormalities. No effusion. LIVER: Normal size. No identified cystic or solid masses. GALLBLADDER: Normally distended BILE DUCTS: No intrahepatic or extrahepatic ductal dilatation. SPLEEN: Normal size. No focal lesions. PANCREAS: No identified cystic or solid masses. No significant calcifications. No adjacent inflammation or peripancreatic fluid collections. Pancreatic duct not dilated. ADRENALS: Normal. KIDNEYS/URINARY TRACT: Bilateral parapelvic cysts are redemonstrated. Cortical hypodensity upper pole right kidney generally unchanged suggesting cysts as well with no follow-up required. Right kidney demonstrates no hydronephrosis or hydroureter. Left kidney demonstrates moderately severe hydronephrosis in addition to the parapelvic cysts as well as moderate hydroureter extending to the distal ureter where a 0.6 cm obstructing stone is identified. Urinary bladder is normally distended. GI: No dilated bowel loops. No obvious wall thickening. Normal appendix. No significant diverticular disease. PERITONEUM: No ascites or free air. RETROPERITONEUM: No mass or adenopathy. REPRODUCTIVE: No significant abnormality. VASCULATURE: No abdominal aortic aneurysm. MUSCULOSKELETAL: No significant abnormality. OTHER: No other abnormality. IMPRESSION: 0.6 cm obstructing stone distal left ureter with moderate to severe hydronephrosis and hydroureter. THIS IS AN ELECTRONICALLY VERIFIED FINAL REPORT 01/02/2025 6:33 PM - Electronically signed by Bola Abdul M.D. RB: DALTON Report ID: [id number] Reading Location: [place] [id number] Procedure Note Bola Abdul MD - 01/02/2025 EXAM DESCRIPTION: CT ABDOMEN PELVIS W CONTRAST REASON FOR STUDY: Abdominal/flank pain, stone suspected, LLQ abdominalpain Abdominal pain onset about 1500 today. TECHNIQUE: CT scan of the abdomen and pelvis performed with intravenousand without oral contrast using helical scanning technique with dynamic intravenous contrast injection. Reconstructed coronal and sagittal MPRimages reviewed. All images stored on PACS. Automated exposure control was usedas a dose optimization technique for this examination. CONTRAST TYPE/DOSE: 100mL of IOVERSOL 350 MG IODINE/ML INTRAVENOUSSYRINGE injected via intravenous COMPARISON: 04/01/2023 FINDINGS: LOWER CHEST: No significant pulmonary abnormalities. No effusion. LIVER: Normal size. No identified cystic or solid masses. GALLBLADDER: Normally distended BILE DUCTS: No intrahepatic or extrahepatic ductal dilatation. SPLEEN: Normal size. No focal lesions. PANCREAS: No identified cystic or solid masses. No significant calcifications. No adjacent inflammation or peripancreatic fluidcollections. Pancreatic duct not dilated. ADRENALS: Normal. KIDNEYS/URINARY TRACT: Bilateral parapelvic cysts are redemonstrated. Cortical hypodensity upper pole right kidney generally unchangedsuggesting cysts as well with no follow-up required. Right kidney demonstrates no hydronephrosis or hydroureter. Left kidney demonstrates moderately severe hydronephrosis in addition tothe parapelvic cysts as well as moderate hydroureter extending to the distal ureter where a 0.6 cm obstructing stone is identified. Urinary bladder is normally distended. GI: No dilated bowel loops. No obvious wall thickening. Normalappendix. No significant diverticular disease. PERITONEUM: No ascites or free air. RETROPERITONEUM: No mass or adenopathy. REPRODUCTIVE: No significant abnormality. VASCULATURE: No abdominal aortic aneurysm. MUSCULOSKELETAL: No significant abnormality. OTHER: No other abnormality. IMPRESSION: 0.6 cm obstructing stone distal left ureter with moderate to severe hydronephrosis and hydroureter. THIS IS AN ELECTRONICALLY VERIFIED FINAL REPORT 01/02/2025 6:33 PM - Electronically signed by Bola Abdul M.D. RB: DALTON Report ID: [id number] Reading Location: [place] [address] PROCEDURES Final Resu lt * eGFR (01/02/2025 4:56 PM CDT) eGFR 67 >=60 mL/min/1. 73 m2 Comment: Interpretive Data Reference Interval Normal >/= 90 mL/min/1.73m2 Mildly decreased* 60 - 89 mL/min/1.73m2 Mildly to moderately decreased 45 - 59 mL/min/1.73m2 Moderately to severely decreased 30 - 44 mL/min/1.73m2 Severely decreased 15 - 29 mL/min/1.73m2 Kidney Failure < 15 mL/min/1.73m2 *Relative to young adult level Estimated glomerular filtration rate is determined by the 2020 CKD-EPI equation recommended by the National Kidney Foundation (A Unifying Approach to GFR Estimation: Recommendations of the NKF-ASK Task Force on Reassessing the Inclusion of Race in Diagnosing Kidney Disease, JASN 2020). The CKD-EPI equation should not be used for patients with unstable renal function and has not been validated in children and those over 70. Current interpretive data was last reviewed 2021. Blood 01/02/2025 4:56 PM CDT 01/02/2025 5:00 PM CDT Ellis Jang MD LAB BLOOD ORDERABLES Final R esult [facility] ([place]) 1 [facility] [place] [address] * Differential, auto (01/02/2025 4:56 PM CDT) Neutrophil abs 5.2 1.5 - 6.5 K/cumm Imm gran abs 0.0 0.0 - 0.1 K/cumm [facility] ([place]) Lymphocyte abs 2.2 0.8 - 3.3 K/cumm [facility] ([place]) Monocyte abs 0.7 0.2 - 0.8 K/cumm [facility] ([place]) Eosinophil abs 0.1 0.0 - 0.5 K/cumm [facility] ([place]) Basophil abs 0.0 0.0 - 0.1 K/cumm [facility] ([place]) Neutrophil pct 63.4 % [facility] ([place]) Comment: Interpretive Data Percent cell count reference ranges are not reported, since discordance with absolute values may lead to misinterpretation of CBC data. Current Interpretive Data was last revised on 2018. Imm gran pct 0.2 % [facility] ([place]) Comment: Interpretive Data Percent cell count reference ranges are not reported, since discordance with absolute values may lead to misinterpretation of CBC data. Current Interpretive Data was last revised on 2018. Lymphocyte pct 26.4 % [facility] ([place]) Comment: Interpretive Data Percent cell count reference ranges are not reported, since discordance with absolute values may lead to misinterpretation of CBC data. Current Interpretive Data was last revised on 2018. Monocyte pct 8.3 % [facility] ([place]) Comment: Interpretive Data Percent cell count reference ranges are not reported, since discordance with absolute values may lead to misinterpretation of CBC data. Current Interpretive Data was last revised on 2018. Eosinophil pct 1.2 % [facility] ([place]) Comment: Interpretive Data Percent cell count reference ranges are not reported, since discordance with absolute values may lead to misinterpretation of CBC data. Current Interpretive Data was last revised on 2018. Basophil pct 0.5 % [facility] ([place]) Comment: Interpretive Data Percent cell count reference ranges are not reported, since discordance with absolute values may lead to misinterpretation of CBC data. Current Interpretive Data was last revised on 2018. Blood 01/02/2025 4:56 PM CDT 01/02/2025 5:00 PM CDT us Ellis Jang MD LAB BLOOD ORDERABLES Final R esult [facility] ([place]) [facility] [place] [address] * CBC with auto differential (01/02/2025 4:56 PM CDT) WBC 8.3 3.8 - 9.9 K/cumm Hgb 13.7 13.0 - 17.5 g/dL [facility] ([place]) Hct 41.8 38.9 - 50.3 % [facility] [place]) Plt 320 150 - 400 K/cumm [facility] ([place]) MPV 9.1 9.1 - 12.3 fL [facility] [place]) RBC 4.75 4.30 - 5.80 M/cumm [facility] ([place]) MCV 88.0 81.3 - 96.4 fL [facility] ([place]) MCH 28.8 27.1 - 33.3 pg [facility] ([place]) MCHC 32.8 32.3 - 35.7 g/dL [facility] ([place]) RDW CV 14.2 11.1 - 14.9 % [facility] [place] RDW SD 45.8 35.7 - 48.1 fL [facility] [place] NRBC abs 0.00 0.00 - 0.01 K/cumm [facility] ([place]) Blood Venous blood specimen / Unknown 01/02/2025 4:56 PM CDT 01/02/2025 5:00 PM CDT Ellis Jang MD LAB BLOOD ORDERABLES Final R esult [facility] ([place] 1 [facility] [employer] [place] [employer] [place] [address] * Lipase (01/02/2025 4:56 PM CDT) [facility] Lipase 26 10 - 99 Units/L Blood Venous blood specimen / Unknown 01/02/2025 4:56 PM CDT 01/02/2025 5:00 PM CDT Ellis Jang MD LAB BLOOD ORDERABLES Final R esult [facility] ([place]) 1 [facility] [place] [employer] [place] [address] * (ABNORMAL) Comprehensive metabolic panel (01/02/2025 4:56 PM CDT) Pathologist [facility] Sodium 137 135 - 145 mmol/L Potassium, pl 3.6 3.3 - 4.9 mmol/L [facility] [place] Chloride 104 97 - 110 mmol/L [facility] [place] CO2 21(L) 22 - 32 mmol/L [facility] ([place] Anion gap 12 2 - 15 mmol/L [facility] ([place]) BUN 23 6 - 25 mg/dL [facility] ([place]) Creatinine 1.18 0.80 - 1.30 mg/dL [facility] ([place]) Glucose 95 70 - 199 mg/dL [facility] ([place]) Comment: Interpretive Data Fasting glucose >/= 126 mg/dl is diagnostic for diabetes. Fasting is defined as no caloric intake for at least 8 hours. Fasting glucose between 100 mg/dl to 125 mg/dl is diagnostic of prediabetes. In a patient with classic symptoms of hyperglycemia or hyperglycemic crisis, a random glucose >/= 200 mg/dl is diagnostic for diabetes. In the absence of unequivocal hyperglycemia, results should be confirmed by repeat testing. The classification and Diagnosis of Diabetes Diabetes Care 2021; 46: S19-S40. Current interpretive data was last revised 2022. Calcium 9.2 8.5 - 10.3 mg/dL [facility] ([place]) Bilirubin, total 0.5 0.1 - 1.2 mg/dL [facility] ([place]) Protein, pl 7.1 6.5 - 8.5 g/dL [facility] ([place]) Albumin 4.2 3.5 - 5.0 g/dL [facility] ([place]) Alk phos 57 40 - 130 Units/L [facility] ([place]) ALT 15 7 - 55 Units/L [facility] ([place]) AST 17 10 - 50 Units/L [facility] ([place]) Blood 01/02/2025 4:56 PM CDT 01/02/2025 5:00 PM CDT Ellis Jang MD LAB BLOOD ORDERABLES Final R esult [facility] ([place]) [address] [facility] [place] [address] * Diabetic Eye Exam (11/22/2024) us Generic External Data Provider [employer] E Final Result * eGFR (11/19/2024 9:15 AM AUTOMOTIVE AIRCONDITIONING MECHANIC) eGFR 81 >=60 mL/min/1. 73 m2 Comment: Interpretive Data Reference Interval Normal >/= 90 mL/min/1.73m2 Mildly decreased* 60 - 89 mL/min/1.73m2 Mildly to moderately decreased 45 - 59 mL/min/1.73m2 Moderately to severely decreased 30 - 44 mL/min/1.73m2 Severely decreased 15 - 29 mL/min/1.73m2 Kidney Failure < 15 mL/min/1.73m2 *Relative to young adult level Estimated glomerular filtration rate is determined by the 2020 CKD-EPI equation recommended by the National Kidney Foundation (A Unifying Approach to GFR Estimation: Recommendations of the NKF-ASK Task Force on Reassessing the Inclusion of Race in Diagnosing Kidney Disease, JASN 2020). The CKD-EPI equation should not be used for patients with unstable renal function and has not been validated in children and those over 70. Current interpretive data was last reviewed 2021. Blood 11/19/2024 9:15 AM AUTOMOTIVE AIRCONDITIONING MECHANIC 11/19/2024 9:32 AM AUTOMOTIVE AIRCONDITIONING MECHANIC us Moise Flores MD LAB BLOOD ORDERABLES Fi nal Result [facility] ([place] [address] [facility] [place] [address] * Differential, auto (11/19/2024 9:15 AM AUTOMOTIVE AIRCONDITIONING MECHANIC) Neutrophil abs 3.1 1.5 - 6.5 K/cumm Imm gran abs 0.0 0.0 - 0.1 K/cumm [facility] ([place]) Lymphocyte abs 2.0 0.8 - 3.3 K/cumm [facility] ([place]) Monocyte abs 0.5 0.2 - 0.8 K/cumm [facility] ([place]) Eosinophil abs 0.1 0.0 - 0.5 K/cumm [facility] ([place]) Basophil abs 0.0 0.0 - 0.1 K/cumm [facility] ([place]) Neutrophil pct 53.8 % [facility] ([place]) Comment: Interpretive Data Percent cell count reference ranges are not reported, since discordance with absolute values may lead to misinterpretation of CBC data. Current Interpretive Data was last revised on 2018. Imm gran pct 0.3 % [facility] ([place]) Comment: Interpretive Data Percent cell count reference ranges are not reported, since discordance with absolute values may lead to misinterpretation of CBC data. Current Interpretive Data was last revised on 2018. Lymphocyte pct 34.2 % [facility] ([place]) Comment: Interpretive Data Percent cell count reference ranges are not reported, since discordance with absolute values may lead to misinterpretation of CBC data. Current Interpretive Data was last revised on 2018. Monocyte pct 8.9 % [facility] ([place]) Comment: Interpretive Data Percent cell count reference ranges are not reported, since discordance with absolute values may lead to misinterpretation of CBC data. Current Interpretive Data was last revised on 2018. Eosinophil pct 2.1 % [facility] ([place]) Comment: Interpretive Data Percent cell count reference ranges are not reported, since discordance with absolute values may lead to misinterpretation of CBC data. Current Interpretive Data was last revised on 2018. Basophil pct 0.7 % [facility] ([place]) Comment: Interpretive Data Percent cell count reference ranges are not reported, since discordance with absolute values may lead to misinterpretation of CBC data. Current Interpretive Data was last revised on 2018. Blood 11/19/2024 9:15 AM AUTOMOTIVE AIRCONDITIONING MECHANIC 11/19/2024 9:32 AM AUTOMOTIVE AIRCONDITIONING MECHANIC Moise Flores MD LAB BLOOD ORDERABLES Fi nal Result Performing Organization Address [facility]/ZIP Co de Phone Number [facility] ([place]) 1 [facility] [place] [employer] [place] [address] * Thyroid Function [place] (11/19/2024 9:15 AM AUTOMOTIVE AIRCONDITIONING MECHANIC) TSH 1.51 0.30 - 4.20 mcIUnit/mL Blood 11/19/2024 9:15 AM AUTOMOTIVE AIRCONDITIONING MECHANIC 11/19/2024 9:32 AM AUTOMOTIVE AIRCONDITIONING MECHANIC Moise Flores MD LAB BLOOD ORDERABLES Fi nal Result Performing Organization Address City/[facility]/ZIP Co de Phone Number [facility] ([place] 1 [facility] [place] [address] * (ABNORMAL) Iron profile w/ IBC (11/19/2024 9:15 AM AUTOMOTIVE AIRCONDITIONING MECHANIC) Pathologist [facility] Iron 93 50 - 150 mcg/dL TIBC 434(H) 250 - 400 mcg/dL [facility] ([place]) Transferrin saturation 21 20 - 50 % [facility] ([place]) Blood 11/19/2024 9:15 AM AUTOMOTIVE AIRCONDITIONING MECHANIC 11/19/2024 9:32 AM AUTOMOTIVE AIRCONDITIONING MECHANIC us Moise Flores MD LAB BLOOD ORDERABLES Fi nal Result [facility] ([place]) 1 [facility] [place] [address] * (ABNORMAL) CBC with auto differential (11/19/2024 9:15 AM AUTOMOTIVE AIRCONDITIONING MECHANIC) Pathologist [facility] WBC 5.7 3.8 - 9.9 K/cumm Hgb 13.9 13.0 - 17.5 g/dL [facility] ([place]) Hct 43.5 38.9 - 50.3 % [facility] ([place]) Plt 328 150 - 400 K/cumm [facility] ([place]) MPV 9.4 9.1 - 12.3 fL [facility] ([place]) RBC 4.79 4.30 - 5.80 M/cumm [facility] ([place]) MCV 90.8 81.3 - 96.4 fL [facility] ([place]) MCH 29.0 27.1 - 33.3 pg [facility] ([place]) MCHC 32.0(L) 32.3 - 35.7 g/dL [facility] ([place]) RDW CV 13.4 11.1 - 14.9 % [facility] ([place]) RDW SD 44.6 35.7 - 48.1 fL [facility] ([place]) NRBC abs 0.00 0.00 - 0.01 K/cumm [facility] ([place]) Blood 11/19/2024 9:15 AM AUTOMOTIVE AIRCONDITIONING MECHANIC 11/19/2024 9:32 AM AUTOMOTIVE AIRCONDITIONING MECHANIC Moise Flores MD LAB BLOOD ORDERABLES Fi nal Result Performing Organization Address City/[facility] Co de Phone Number [facility] ([place]) 1 [place] [address] * Hemoglobin A1c (11/19/2024 9:15 AM AUTOMOTIVE AIRCONDITIONING MECHANIC) Hgb A1C 5.6 4.0 - 5.6 % Estimated Average Glucose 114 mg/dL [facility] ([place]) Comment: The ADA recommends reporting an estimated Average Glucose (eAG) with all Hemoglobin A1c results using the equation derived from a study of 507 normal and diabetic adults. Minority populations were underrepresented and children were not included. (Diabetes Care 31:8695-4838, 2008). The eAG is not equivalent to a fasting glucose. Blood 11/19/2024 9:15 AM AUTOMOTIVE AIRCONDITIONING MECHANIC 11/19/2024 9:32 AM AUTOMOTIVE AIRCONDITIONING MECHANIC Moise Flores MD LAB BLOOD ORDERABLES Fi nal Result Performing Organization Address [facility] Co de Phone Number [facility] ([place] 1 [place] [address] * (ABNORMAL) Ferritin (11/19/2024 9:15 AM AUTOMOTIVE AIRCONDITIONING MECHANIC) Pathologist [facility] Ferritin 15(L) 30 - 400 ng/mL Blood 11/19/2024 9:15 AM AUTOMOTIVE AIRCONDITIONING MECHANIC 11/19/2024 9:32 AM AUTOMOTIVE AIRCONDITIONING MECHANIC Moise Flores MD LAB BLOOD ORDERABLES Fi nal Result Performing Organization Address [facility] Co de Phone Number [facility] [address] [facility] [place] [employer] [place] [address] * Comprehensive metabolic panel (11/19/2024 9:15 AM AUTOMOTIVE AIRCONDITIONING MECHANIC) Sodium 140 135 - 145 mmol/L Potassium, pl 4.6 3.3 - 4.9 mmol/L [facility] ([place]) Chloride 104 97 - 110 mmol/L [facility] ([place]) CO2 26 22 - 32 mmol/L [facility] [place] Anion gap 10 2 - 15 mmol/L [facility] ([place]) BUN 22 6 - 25 mg/dL [facility] ([place]) Creatinine 1.00 0.80 - 1.30 mg/dL [facility] ([place]) Glucose 114 70 - 199 mg/dL [facility] ([place]) Comment: Interpretive Data Fasting glucose >/= 126 mg/dl is diagnostic for diabetes. Fasting is defined as no caloric intake for at least 8 hours. Fasting glucose between 100 mg/dl to 125 mg/dl is diagnostic of prediabetes. In a patient with classic symptoms of hyperglycemia or hyperglycemic crisis, a random glucose >/= 200 mg/dl is diagnostic for diabetes. In the absence of unequivocal hyperglycemia, results should be confirmed by repeat testing. The classification and Diagnosis of Diabetes Diabetes Care 2021; 46: S19-S40. Current interpretive data was last revised 2022. Calcium 10.0 8.5 - 10.3 mg/dL [facility] ([place]) Bilirubin, total 0.5 0.1 - 1.2 mg/dL [facility] ([place]) Protein, pl 6.9 6.5 - 8.5 g/dL [facility] ([place]) Albumin 4.4 3.5 - 5.0 g/dL [facility] ([place]) Alk phos 60 40 - 130 Units/L [facility] ([place]) ALT 20 7 - 55 Units/L [facility] [place]) AST 17 10 - 50 Units/L [facility] ([place]) Blood 11/19/2024 9:15 AM AUTOMOTIVE AIRCONDITIONING MECHANIC 11/19/2024 9:32 AM AUTOMOTIVE AIRCONDITIONING MECHANIC us Moise Flores MD LAB BLOOD ORDERABLES Fi nal Result [facility] ([place]) 1 [facility] [place] [address] * Hepatitis panel, acute Blood (10/10/2023 9:16 AM AUTOMOTIVE AIRCONDITIONING MECHANIC) Hep A IgM Nonreactive Nonreactive [facility] ([place]) Comment: Interpretive Data: If Hep A IgM Ab is reported as Equivocal, a new sample should be drawn in two weeks for testing. Current interpretive data was last revised on 20. Testing performed by: [facility], [address] [place] [address]., [id number] Hep B core IgM Nonreactive Nonreactive [facility] ([place]) Comment: Interpretive Data If HepB Core IgM Ab is reported as Equivocal, a new sample should be drawn in two weeks for testing. Current interpretive data was last revised on 20. Testing performed by: [facility], [address] [place] [address]., [id number] Hep C Ab Nonreactive Nonreactive [facility] ([place]) Comment: Interpretive Data Nonreactive: Antibodies to HCV not detected. Does NOT exclude the possibility of recent exposure to HCV. Equivocal: Equivocal for HCV antibodies. Supplemental molecular testing will be automatically performed to determine infection status in accordance with current CDC screening recommendations. Reactive: Positive for HCV antibodies. This may represent current or past HCV infection. Supplemental molecular testing will be automatically performed to determine current infection status in accordance with current CDC screening recommendations. Interpretive data was last revised on 2020. Testing performed by: [facility], [address] [place] [address]., [id number] HepBsAg Nonreactive Nonreactive [facility] ([place]) Comment:Testing performed by : [facility], [address] [place] [address]., [id number] Blood 10/10/2023 9:16 AM AUTOMOTIVE AIRCONDITIONING MECHANIC 10/10/2023 1:48 PM AUTOMOTIVE AIRCONDITIONING MECHANIC us Jose Marroquin MD LAB MICROBIOLOGY - GENERAL O RDERABLES Final Result [facility] ([place]) 1 [facility] of [facility] [place], [place] [id number] * PSA screen (04/14/2023 6:30 AM CDT) PSA-Total <0.10 <=5.40 ng/mL [facility] ([place]) Comment: Interpretive Data AGE SEX REFERENCE INTERVAL 0 minutes-150 years Female None 0 minutes-49 years Male None 50-59 years Male 0-3.90 60-69 years Male 0-5.40 70-79 years Male 0-6.20 80-150 years Male 0-6.20 The Nolan PSA Total assay procedure was used. Results from different manufacturers or methods may not be comparable. Serial testing should be performed using the same method. Current interpretive data last revised 22. Blood 04/14/2023 6:30 AM CDT 04/14/2023 7:26 AM CDT Narrative [facility] ([place]) - 04/14/2023 8:08 AM CDT Fasting us Jose Marroquin MD LAB BLOOD ORDERABLES Final R esult [facility] ([place]) [address] [facility] [place] [address] * COLONOSCOPY (12/18/2021 7:19 AM AUTOMOTIVE AIRCONDITIONING MECHANIC) Anatomical Region Laterality Modality Other Narrative Procedure Note Leopoldo Cutler MD - 12/18/2021 7:19 AM CST [facility] Patient Name: Faustino Leija Procedure Date: 12/18/2021 7:19 AM Date of : 1955 Admit Type: Outpatient Age: 66 Gender: Male Attending MD: Leopoldo Cutler M.D. Room: [facility] ENDOSCOPY ROOM 1 Note Status: Finalized Patient Profile: This is a 66 year old male. History of polyps. No family history of colon cancer. No specific GI complaint. Procedure: Colonoscopy Indications: High risk colon cancer surveillance: Personalhistory of colonic polyps, Last colonoscopy: September2015 Referring MD: Jose Marroquin M.D. Providers: Leopoldo Cutler M.D. Impression: - One 5 mm polyp in the ascending colon, removedwith a jumbo cold forceps. Resected and retrieved. - One 6 mm polyp in the descending colon, removedwith a jumbo cold forceps. Resected and retrieved. - Diverticulosis in the sigmoid colon. - Internal hemorrhoids. Recommendation: - Await pathology results. - Repeat colonoscopy in 3 - 5 years for screening purposes. - Continue present medications. Medicines: Monitored Anesthesia Care Complications: No immediate complications. Estimated Blood Loss: Estimated blood loss: none. Procedure: Pre-Anesthesia Assessment: - Prior to the procedure, a History and Physicalwas performed, and patient medications and allergieswere reviewed. The patient's tolerance of previous anesthesia was also reviewed. The risks andbenefits of the procedure and the sedation options and risks were discussed with the patient. All questions were answered, and informed consent was obtained. Prior Anticoagulants: The patient has taken no previous anticoagulant or antiplatelet agents. ASA Grade Assessment: III - A patient with severe systemic disease. After reviewing the risks and benefits,the patient was deemed in satisfactory condition to undergo the procedure. The benefits, risks and alternatives of theprocedure and sedation were discussed and informed consentwas obtained. All questions were answered. Please referto the signed informed consent document in the medical record. The bowel preparation used was Miralax and bisacodyl tablets via split dose instruction. The scope was passed under direct vision. The Pediatric Colonoscope [id number]-[id number] was introducedthrough the anus and advanced to the the cecum, identifiedby appendiceal orifice and ileocecal valve. Thequality of the bowel preparation was good. Bowel prep was administered using a split dose. Findings: The perianal and digital rectal examinations were normal. The cecum appeared normal. The terminal ileum was normal for A 5 mm polyp was found in the ascending colon. The polyp was sessile. The polyp was removed with a jumbo cold forceps. Resection andretrieval were complete. The transverse colon appeared normal. A 6 mm polyp was found in the descending colon. The polyp wassessile. The polyp was removed with a jumbo cold forceps. Resection andretrieval were complete. Multiple medium-mouthed diverticula were found in the sigmoidcolon. Internal hemorrhoids were found during retroflexion. The hemorrhoids were small. Electronically signed by Leopoldo Cutler M.D. Leopoldo Cutler M.D. 12/18/2021 8:53:44 AM Number of Addenda: 0 Note Initiated On: 12/18/2021 7:19 AM Procedure Code(s): --- Professional --- 51591, Colonoscopy, flexible; with biopsy, single or multiple Diagnosis Code(s): --- Professional --- Z86.010, Personal history of colonic polyps K64.8, Other hemorrhoids K63.5, Polyp of colon K57.30, Diverticulosis of large intestine without perforation orabscess without bleeding CPT copyright 2019 [employer]. All rights reserved. The codes documented in this report are preliminary and upon cancer spec reviewmay be revised to meet current compliance requirements. Recognized by the [employer] [employer] for promoting quality in endoscopy Leopoldo Cutler MD ENDOSCOPY PROCEDURES Final Result from Last 3 Months or Most Recently Relevant to Health Maintenance Insurance [facility] MEDICARE MEDICARE AETNA SENIOR SUPPLEMENT AETNA HUMAN MEDICARE SUPPLEMENT MEDICARE AETNA MEDICARE HU[employer] MEDICARE SUPPLEMENT Advance Directives For more information, please contact: [phone] * Full Code (Latest Code Status on File) Date Activated Date Inactivated Comments 12/18/2021 7:21 AM 12/18/2021 1:45 PM * Full Code Date Activated Date Inactivated Comments 12/18/2021 7:20 AM 12/18/2021 7:21 AM * Full Code Date Activated Date Inactivated Comments 12/31/2020 10:03 AM 01/04/2021 6:05 PM Care Teams [employer] Lab Technician Relationship Specialty Start Date End Date Moise Flores MD [address] [facility] [address] [place] A [facility] [address] [place] [address] PCP - General Family Medicine 04/27/24 Mario Banda MD [address] [place] [address] [address] [place] [address] Surgeon Orthopedic Surgery 04/27/24 Charles Reddy MD [address] [facility] [address] [place] [address] Consulting Physician Urology 04/27/24 Leopoldo Cutler MD [address] [place] [address] [address] [place] [address] Consulting Physician Gastroenterology 04/27/24 Shari Gaston MD [address] [place] [address] Referring Physician Dermatology 10/24/24
--- OUTSIDE RECORDS SUMMARY | 2025-01-11 17:43 | XMS_ITS | Clinical Summary ---
Author Organization [facility] Address [address] [place] [address] Care Team Providers Care Medical Planner Name Role Phone Moise Flores MD Primary Care Provider Mario Banda MD Unavailable [phone] Charles Reddy MD Unavailable [phone] Leopoldo Cutler MD Unavailable [phone] Shari Gaston MD Unavailable [phone] Allergies No known active allergies Medications multivitamin [...] once daily 100 tablet [address] (NexIUM) 40 mg capsule [...] ONCE DAILY BEFORE BREAKFAST 100 capsule 1 024 2024 Discontinued atorvastatin (LIPITOR) 10 mg [...] 11/25/2024 Assessment & Plan (11/25/2024 9:34 AM MOLDED GRID AND PARTS INSPECTOR): - last colonoscopy 2021, repeat in 3-5 years, he has opted to repeat in 5 years per patient Basal cell carcinoma (BCC) of skin of nose 10/24 Assessment & Plan (11/25/2024 9:37 AM MOLDED GRID AND PARTS INSPECTOR): - recent diagnosis from dermatology by Dr. Gaston - scheduled for Mohs surgery on 02/2025 Primary osteoarthritis of right knee 04/27/2024 Overview (11/25/2024): Follows with orthopedics Assessment & Plan (11/25/2024 9:26 AM MOLDED GRID AND PARTS INSPECTOR): - chronic, recurring condition, not at goal [...] weeks. Assessment & Plan (11/25/2024 9:30 AM MOLDED GRID AND PARTS INSPECTOR): - hx of anemia, not present now [...] year. Assessment & Plan (09/12/2022 1:55 PM MOLDED GRID AND PARTS INSPECTOR): Hemoglobin and ferritin normalized after iron supplementation [...] 09/06/2021 Assessment & Plan (11/25/2024 9:29 AM MOLDED GRID AND PARTS INSPECTOR): - chronic condition, waxes and wanes - [...] 03/06/2022 Assessment & Plan (12/20/2023 10:37 AM MOLDED GRID AND PARTS INSPECTOR): Patient should reduce sugar and carbs, increase exercise, maintain proper body weight, and will check an A1c once or twice yearly. Assessment & Plan (04/15/2023 3:26 PM CDT): Patient should reduce sugar and carbs, increase exercise, maintain proper body weight, and will check an A1c once or twice yearly. Assessment & Plan (09/12/2022 1:54 PM MOLDED GRID AND PARTS INSPECTOR): Patient should reduce sugar and carbs, increase exercise, maintain proper body weight, and will check an A1c once or twice yearly. Assessment & Plan (03/11/2022 1:39 PM CDT): Patient should reduce sugar and carbs, increase exercise, maintain proper body weight, and will check an A1c once or twice yearly. Assessment & Plan (11/07/2021 10:21 AM MOLDED GRID AND PARTS INSPECTOR): Patient should reduce sugar and carbs, increase exercise, maintain proper body weight, and will check an A1c once or twice yearly. 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 Assessment & Plan (04/15/2023 3:25 PM CDT): Patient is asymptomatic on current dose of levothyroxine and TSH free T4 are normal and we will repeat levels before next visit. Assessment & Plan (09/12/2022 1:55 PM MOLDED GRID AND PARTS INSPECTOR): Patient is asymptomatic on current dose of levothyroxine and TSH free T4 are normal and we will repeat levels before next visit. Assessment & Plan (03/11/2022 1:38 PM CDT): Patient is asymptomatic on current dose of levothyroxine and TSH free T4 are normal and we will repeat levels before next visit. Assessment & Plan (11/07/2021 10:20 AM MOLDED GRID AND PARTS INSPECTOR): Continue current dose of levothyroxine check levels before next visit. Assessment & Plan (09/06/2021 9:26 AM MOLDED GRID AND PARTS INSPECTOR): Patient is asymptomatic on current dose of levothyroxine and TSH free T4 are normal and we will repeat levels before next visit. Assessment & Plan (03/01/2021 3:55 PM CDT): Continue current dose of levothyroxine and check levels before next visit. Essential hypertension 12/31/2020 Overview (11/07/2021): Significant swelling on amlodipine Assessment & Plan (11/25/2024 9:39 AM MOLDED GRID AND PARTS INSPECTOR): Blood Pressure Management BP Readings from Last [...] 10/10/2023 Assessment & Plan (12/20/2023 10:37 AM MOLDED GRID AND PARTS INSPECTOR): Blood pressure well controlled on amlodipine, benazepril Assessment & Plan (04/15/2023 3:26 PM CDT): Blood pressure well controlled on amlodipine, benazepril Assessment & Plan (09/12/2022 1:55 PM MOLDED GRID AND PARTS INSPECTOR): Well controlled on the current regimen. Avoidance of salt, proper body weight, and routine exercise recommended. Assessment & Plan (03/11/2022 1:38 PM CDT): Well controlled on the current regimen. Avoidance of salt, proper body weight, and routine exercise recommended. Assessment & Plan (11/07/2021 10:20 AM MOLDED GRID AND PARTS INSPECTOR): Edema resolved with discontinuation of amlodipine. Blood pressure well controlled on benazepril 40 mg daily. Check metabolic panel again before next visit. Assessment & Plan (09/06/2021 9:28 AM MOLDED GRID AND PARTS INSPECTOR): Blood pressure close to goal but his [...] months Assessment & Plan (11/25/2024 9:28 AM MOLDED GRID AND PARTS INSPECTOR): - S/p prostatectomy 08/2018, Followed by Dr [...] 05/07/2016 Assessment & Plan (11/25/2024 9:27 AM MOLDED GRID AND PARTS INSPECTOR): - chronic condition, stable status - currently [...] 11/03/2015 Assessment & Plan (11/25/2024 9:27 AM MOLDED GRID AND PARTS INSPECTOR): - chronic condition - status: is adequately [...] 10/10/2023 Assessment & Plan (12/20/2023 10:37 AM MOLDED GRID AND PARTS INSPECTOR): Well controlled on current therapy and will check a lipid panel and LFTs in 6 months. Assessment & Plan (04/15/2023 3:26 PM CDT): Well controlled on current therapy and will check a lipid panel and LFTs in 6 months. Diet and exercise for elevated triglycerides. Assessment & Plan (09/12/2022 1:54 PM MOLDED GRID AND PARTS INSPECTOR): Well controlled on current therapy and will check a lipid panel and LFTs in 6 months. Assessment & Plan (03/11/2022 1:39 PM CDT): Well controlled on current therapy and will check a lipid panel and LFTs in 6 months. Assessment & Plan (11/07/2021 10:21 AM MOLDED GRID AND PARTS INSPECTOR): Continue his atorvastatin check lipids and LFTs before next visit. Assessment & Plan (09/06/2021 9:27 AM MOLDED GRID AND PARTS INSPECTOR): Well controlled on current therapy and will [...] 09/12/202204/27 Assessment & Plan (09/12/2022 1:55 PM MOLDED GRID AND PARTS INSPECTOR): Most likely related to his episode of [...] 04/27/2024 Assessment & Plan (11/07/2021 10:21 AM MOLDED GRID AND PARTS INSPECTOR): Resolved with resolution of his peripheral edema. Assessment & Plan (09/06/2021 9:28 AM MOLDED GRID AND PARTS INSPECTOR): Hold call bilateral lower extremity venous Doppler [...] 11/25/2024 Assessment & Plan (09/06/2021 9:26 AM MOLDED GRID AND PARTS INSPECTOR): I amsuspecting his lower extremity crampy pain with activities his due to his lumbar degenerative disc disease. He may need to follow-up with neurosurgeon eventually. Insomnia secondary to chronic pain 12/01/2020 04/27/2024 Encounters Date Type Department Care Team Description 01/07/2025 8:26 AM CDT - 01/07/2025 11:59 PM CDT Hospital Encounter [facility] Medical [facility] Orthopedics and Sports Medicine [address] [place] [phone] Discharge Disposition: Discharge to home or self care 01/07/2025 8:15 AM CDT Office Visit [facility] Orthopedics and Sports Medicine [address] [place] [phone] Patricia Alfaro NP Primary osteoarthritis of right knee (Primary Dx) 01/05/2025 JOSÉ MIGUEL ED Outreach [facility] Accountable Care Organization [address] [place] [id number] Artemio Rodriguez MA 01/02/2025 5:04 PM CDT - 01/02/2025 7:36 PM CDT Emergency [facility] Emergency Department [address] [place] [address] Renal colic on left side (Primary Dx) Discharge Disposition: Discharge to home or self care 11/25/2024 9:00 AM MOLDED GRID AND PARTS INSPECTOR Office Visit [facility] Medical Group Primary Care at [address] [phone] Moise Flores MD Medicare annual wellness visit, subsequent (Primary Dx); Acquired hypothyroidism; Basal cell carcinoma (BCC) of skin of nose; Mixed hyperlipidemia; Gastroesophageal reflux disease, unspecified whether esophagitis present; Essential hypertension; Primary osteoarthritis of right knee; History of prostate cancer; Impaired fasting glucose; History of anemia; History of colon polyps 11/19/2024 9:00 AM MOLDED GRID AND PARTS INSPECTOR Lab [address] [phone] Acquired hypothyroidism; Anemia, unspecified type; Impaired fasting glucose; Mixed hyperlipidemia from Last 3 Months Immunizations Immunization Administration Dates Next Due Influenza, [...] 10/27/2010 ZOSTER LIVE 11/09/2013,10/27/2013 ZOSTER Recombinant 06/30/2019,03/25/2019 Surgical History Surgery Date Site/Laterality Comments APPENDECTOMY PROSTATECTOMY SPINE SURGERY 11/27/2020 - 12/24/2020 VASECTOMY 10/27/1986 - 10/26/1987 FOOT SURGERY 10/27/2010 - 10/26/2011 Left COLONOSCOPY 10/05/2015 Medical History Medical History Date Comments Hypertension Stomach ulcer High cholesterol Thyroid disease Prostate cancer (HCC) GERD (gastroesophageal reflux disease) 1989 Neuromuscular disorder (HCC) Peripheral neuropathy Gastric reflux Family History Medical History Relation Name Comments Heart attack Brother Edward Cancer Father Edward Early Father Edward Heart attack Father Edward Hypertension Father Edward Prostate cancer Father Vivek Cancer Mother Sarah Hypertension Mother Sarah Lung cancer Mother Sarah Migraines Mother Sarah Arthritis Other Blood Clot Other Heart disease Other Lung disease Other Cancer Sister Mona Diabetes Sister Mona Pancreatic cancer Sister Mona Relation Name Status Comments Brother Vivek Father Vivek Mother Sarah Other Sister Mona Social History Tobacco Use Types Packs/Day Years [...] on file Legal Sex Male 11:59 AM MOLDED GRID AND PARTS INSPECTOR Gender Identity Male 12/07/2021 1:13 PM MOLDED GRID AND PARTS INSPECTOR Sexual Orientation Not on file Obstetrics History Last Filed Vital Signs Vital Sign Reading [...] 01/07/2025 8:17 AM CDT Plan of Treatment Health Maintenance Due Date Last Done Comments DTaP/Tdap/Td Vaccine (1 - Tdap) 10/28/2010 1 Prostate Cancer Screening-PSA 04/14/2024 04/14/2023 Covid-19 Vaccine (6 - 2023-2 5 season) 2024 10/11/2022, 06/05/2022, 08/03/2021, Additional history exists Depression Screening 11/25/2025 11/25/2024, 04/27/2024, 10/16/2023, Additional history exists Fall Risk Assessment 11/25/2025 11/25/2024, 04/27/2024, 10/16/2023, Additional history exists Well Visit 65+ 11/25/2025 11/25/2024, 03/28, 03/11/2022, Additional history exists Colon Cancer Screening-Colonoscopy 12/18/2026 12/18/2021, 10/05/2015 Zoster Vaccine Completed 06/30/2019, 02/26, 11/09/2013, Additional history exists Pneumococcal vaccine 65+ Completed 08/18/2021, 06/28 Colon Cancer Screening-CT Colonography Discontinued 12/18/2021, 10/05/2015 Colon Cancer Screening-DNA Stool Discontinued 12/18/19, 10/05/2015 Colon Cancer Screening-FIT Discontinued 12/18/2021, Colon Cancer Screening-Sigmoidoscopy Discontinued 12/18/2021, 10/05/2015 Hepatitis C Screening Completed 10/10/2023 Hepatitis B Screening Completed 04/27/2024 Influenza Vaccine Completed 09/30/2024, , 08/01/2022, Additional history exists Procedures Procedure Name Priority Date/Time Associated Diagnosis Comments XR KNEE RIGHT 4 OR MORE VIEWS Schedule Routine, Read Routine (OP Routine) 01/07/2025 8:27 AM CDT Primary osteoarthritis of right knee MI ARTHROCENTESIS ASPIR&/INJ MAJOR JT/BURSA W/O US Routine 01/07/2025 8:15 AM CDT Primary osteoarthritis of right knee CT ABDOMEN PELVIS W CONTRAST ED 01/02/2025 6:16 PM CDT EGFR STAT 01/02/2025 4:56 PM CDT DIFFERENTIAL AUTO STAT 01/02/2025 4:56 PM CDT LIPASE STAT 01/02/2025 4:56 PM CDT COMPREHENSIVE METABOLIC PANEL STAT 01/02/2025 4:56 PM CDT CBC WITH AUTO DIFFERENTIAL STAT 01/02/2025 4:56 PM CDT DIABETIC EYE EXAM Routine 11/22/2024 EGFR Routine 11/19/2024 9:15 AM MOLDED GRID AND PARTS INSPECTOR Mixed hyperlipidemia DIFFERENTIAL AUTO Routine 11/19/2024 9:1 5 AM MOLDED GRID AND PARTS INSPECTOR Anemia, unspecified type COMPREHENSIVE METABOLIC PANEL Routine 11/19/2024 9:15 AM MOLDED GRID AND PARTS INSPECTOR Mixed hyperlipidemia HEMOGLOBIN A1C Routine 11/19/2024 9:15 AM MOLDED GRID AND PARTS INSPECTOR Impaired fasting glucose IRON PROFILE W/ IBC Routine 11/19/2024 9 :15 AM MOLDED GRID AND PARTS INSPECTOR Anemia, unspecified type FERRITIN Routine 11/19/2024 9:15 AM MOLDED GRID AND PARTS INSPECTOR Anemia, unspecified type CBC WITH AUTO DIFFERENTIAL Routine 11/19/2024 9:15 AM MOLDED GRID AND PARTS INSPECTOR Anemia, unspecified type THYROID FUNCTION CASCADE Routine 11/19/2024 9:15 AM MOLDED GRID AND PARTS INSPECTOR Acquired hypothyroidism HEPATITIS PANEL, ACUTE Routine 10/10/2023 9:16 AM MOLDED GRID AND PARTS INSPECTOR Encounter for hepatitis C screening test for low risk patient PSA SCREEN Routine 04/14/2023 6:30 AM CDT Screening PSA (prostate specific antigen) COLONOSCOPY 12/18/2021 7:19 AM MOLDED GRID AND PARTS INSPECTOR from Last 3 Months or Most Recently Relevant to Health Maintenance Results * XR Knee Right 4 or More Views (01/07/2025 8:27 AM CDT) Anatomical Region Laterality Modality Lower Extremities, Knee Right Digital Radiography Narrative 01/07/2025 8:30 AM CDT Radiographs taken of the right knee today reveal mild to moderate degenerative changes with subchondral sclerosis, osteophyte formation, and diminished joint space. us Patricia Alfaro CURRICULUM FACILITATOR IMG XR PROCEDURES Final Result * MI ARTHROCENTESIS ASPIR&/INJ MAJOR JT/BURSA W/O US (01/07/2025 [...] well with no immediate complications Patricia Alfaro CURRICULUM FACILITATOR IN CLINIC/BEDSIDE ORDER VALENTINE Final Result * [...] Bola Abdul M.D. RB: DALTON Report ID: [id number] Reading Location: [id number] Procedure Note Bola Abdul MD - 01/02/2025 [...] Bola Abdul M.D. RB: DALTON Report ID: [id number] Reading Location: [place] [address] PROCEDURES Final Resu [...] MD LAB BLOOD ORDERABLES Final R esult [facility] ([place]) 1 [facility] Department of Laboratories [place] [id number] * Differential, auto (01/02/2025 4:56 PM CDT) [...] BLOOD ORDERABLES Final R esult [facility] ([place]) 1 [facility] Department [place] [address] * CBC with auto differential (01/02/2025 4:56 PM CDT) WBC 8.3 3.8 - 9.9 K/cumm Hgb 13.7 13.0 - 17.5 g/dL [facility] ([place]) Hct 41.8 38.9 - 50.3 % [facility] ([place]) Plt 320 150 - 400 K/cumm [facility] ([place]) MPV 9.1 9.1 - 12.3 fL [facility] ([place]) RBC 4.75 4.30 - 5.80 M/cumm [facility] ([place]) MCV 88.0 81.3 - 96.4 fL [facility] ([place]) MCH 28.8 27.1 - 33.3 pg [facility] ([place]) MCHC 32.8 32.3 - 35.7 g/dL [facility] ([place]) RDW CV 14.2 11.1 - 14.9 % [facility] ([place]) RDW SD 45.8 35.7 - 48.1 fL [facility] ([place]) NRBC abs 0.00 0.00 - 0.01 K/cumm [facility] ([place]) Blood Venous blood specimen / Unknown 01/02/2025 4:56 PM CDT 01/02/2025 5:00 PM CDT Ellis Jang MD LAB BLOOD ORDERABLES Final R esult [facility] ([place]) 1 [facility] [place] [address] * Lipase (01/02/2025 4:56 PM CDT) Pathologist [facility] Lipase 26 10 - 99 Units/L Blood Venous blood specimen / Unknown 01/02/2025 4:56 PM CDT 01/02/2025 5:00 PM CDT Ellis Jang MD LAB BLOOD ORDERABLES Final R esult [facility] ([place]) 1 [facility] [employer] [place] [address] * (ABNORMAL) Comprehensive metabolic panel (01/02/2025 4:56 PM CDT) Sodium 137 135 - 145 mmol/L Potassium, pl 3.6 3.3 - 4.9 mmol/L [facility] ([place]) Chloride 104 97 - 110 mmol/L [facility] ([place]) CO2 21(L) 22 - 32 mmol/L [facility] ([place]) Anion gap 12 2 - 15 mmol/L [facility] ([place]) BUN 23 6 - 25 mg/dL [facility] ([place]) Creatinine 1.18 0.80 - 1.30 mg/dL [...] Final R esult [facility] ([place]) 1 [facility] Department [place] [address] * Diabetic Eye Exam (11/22/2024) us Generic External Data Provider HE[employer]INTENANC E Final Result * eGFR (11/19/2024 9:15 AM MOLDED GRID AND PARTS INSPECTOR) eGFR 81 >=60 mL/min/1. 73 m2 Comment: [...] last reviewed 2021. Blood 11/19/2024 9:15 AM MOLDED GRID AND PARTS INSPECTOR 11/19/2024 9:32 AM MOLDED GRID AND PARTS INSPECTOR us Moise Flores MD LAB BLOOD ORDERABLES Fi nal Result [facility] ([place]) 1 [facility] Department [place] [address] * Differential, auto (11/19/2024 9:15 AM MOLDED GRID AND PARTS INSPECTOR) Neutrophil abs 3.1 1.5 - 6.5 K/cumm [...] revised on 2018. Blood 11/19/2024 9:15 AM MOLDED GRID AND PARTS INSPECTOR 11/19/2024 9:32 AM MOLDED GRID AND PARTS INSPECTOR us Moise Flores MD LAB BLOOD ORDERABLES Fi nal Result [facility] ([place]) 1 [facility] Department of Laboratories [place], [place] [id number] * Thyroid Function [place] (11/19/2024 9:15 AM MOLDED GRID AND PARTS INSPECTOR) TSH 1.51 0.30 - 4.20 mcIUnit/mL Blood 11/19/2024 9:15 AM MOLDED GRID AND PARTS INSPECTOR 11/19/2024 9:32 AM MOLDED GRID AND PARTS INSPECTOR Moise Flores MD LAB BLOOD ORDERABLES Fi nal Result [facility] ([place]) 1 [facility] [employer] [place] [address] * (ABNORMAL) Iron profile w/ IBC (11/19/2024 9:15 AM MOLDED GRID AND PARTS INSPECTOR) [facility] Iron 93 50 - 150 mcg/dL TIBC 434(H) 250 - 400 mcg/dL [facility] ([place]) Transferrin saturation 21 20 - 50 % [facility] ([place]) Blood 11/19/2024 9:15 AM MOLDED GRID AND PARTS INSPECTOR 11/19/2024 9:32 AM MOLDED GRID AND PARTS INSPECTOR Moise Flores MD LAB BLOOD ORDERABLES Fi nal Result Performing Organization Address [facility] Co de Phone Number [facility] ([place]) 1 [facility] [employer] [place] [address] * (ABNORMAL) CBC with auto differential (11/19/2024 9:15 AM MOLDED GRID AND PARTS INSPECTOR) [facility] WBC 5.7 3.8 - 9.9 K/cumm Hgb 13.9 13.0 - 17.5 g/dL [facility] Hct 43.5 38.9 - 50.3 % [facility] ([place]) Plt 328 150 - 400 [...] RDW SD 44.6 35.7 - 48.1 fL [facility] ([place]) NRBC abs 0.00 0.00 - 0.01 K/cumm [facility] ([place]) Blood 11/19/2024 9:15 AM MOLDED GRID AND PARTS INSPECTOR 11/19/2024 9:32 AM MOLDED GRID AND PARTS INSPECTOR Moise Flores MD LAB BLOOD ORDERABLES Fi nal Result Performing Organization Address [facility] Co de Phone Number [facility] 1 [facility] [employer] [place] [address] * Hemoglobin A1c (11/19/2024 9:15 AM MOLDED GRID AND PARTS INSPECTOR) Hgb A1C 5.6 4.0 - 5.6 % Estimated Average Glucose 114 mg/dL [facility] ([place]) Comment: The ADA recommends reporting an estimated Average Glucose (eAG) with all Hemoglobin A1c results using the equation derived from a study of 507 normal and diabetic adults. Minority populations were underrepresented and children were not included. (Diabetes Care 31:0662-0225, 2008). The eAG is not equivalent to a fasting glucose. Blood 11/19/2024 9:15 AM MOLDED GRID AND PARTS INSPECTOR 11/19/2024 9:32 AM MOLDED GRID AND PARTS INSPECTOR Moise Flores MD LAB BLOOD ORDERABLES Fi nal Result Performing Organization Address [facility] Co de Phone Number [facility] ([place] 1 [facility] [employer] [place] [address] * (ABNORMAL) Ferritin (11/19/2024 9:15 AM MOLDED GRID AND PARTS INSPECTOR) Ferritin 15(L) 30 - 400 ng/mL Blood 11/19/2024 9:15 AM MOLDED GRID AND PARTS INSPECTOR 11/19/2024 9:32 AM MOLDED GRID AND PARTS INSPECTOR Moise Flores MD LAB BLOOD ORDERABLES Fi nal Result Performing Organization Address City[facility]/ZIP Co de Phone Number [facility] ([place]) 1 [facility] [employer] [place] [address] * Comprehensive metabolic panel (11/19/2024 9:15 AM MOLDED GRID AND PARTS INSPECTOR) Sodium 140 135 - 145 mmol/L Potassium, pl 4.6 3.3 - 4.9 mmol/L [facility] ([place]) Chloride 104 97 - 110 mmol/L [facility] [...] [facility] ([place]) Blood 11/19/2024 9:15 AM MOLDED GRID AND PARTS INSPECTOR 11/19/2024 9:32 AM MOLDED GRID AND PARTS INSPECTOR us Moise Flores MD LAB BLOOD ORDERABLES Fi nal Result [facility] ([place]) 1 [facility] Department [place] [address] * Hepatitis panel, acute Blood (10/10/2023 9:16 AM MOLDED GRID AND PARTS INSPECTOR) Hep A IgM Nonreactive Nonreactive [facility] ([place]) Comment: Interpretive Data: If Hep A IgM Ab is reported as Equivocal, a new sample should be drawn in two weeks for testing. Current interpretive data was last revised on 20. Testing performed by: [address] [address] Hep B core IgM Nonreactive Nonreactive [facility] ([place]) Comment: Interpretive Data If HepB Core IgM Ab is reported as Equivocal, a new sample should be drawn in two weeks for testing. Current interpretive data was last revised on 20. Testing performed by: [address] [address] Hep C Ab Nonreactive Nonreactive [facility] [...] last revised on 2020. Testing performed by: [address] [address] HepBsAg Nonreactive Nonreactive [facility] ([place]) Comment:Testing performed by : [address] [address] Blood 10/10/2023 9:16 AM MOLDED GRID AND PARTS INSPECTOR 10/10/2023 1:48 PM MOLDED GRID AND PARTS INSPECTOR us Jose Marroquin MD LAB MICROBIOLOGY - GENERAL O RDERABLES Final Result [facility] ([place]) 1 [facility] Department [place] [address] * PSA screen (04/14/2023 6:30 AM CDT) PSA-Total <0.10 <=5.40 ng/mL [facility] Comment: Interpretive Data AGE SEX REFERENCE INTERVAL [...] CDT 04/14/2023 7:26 AM CDT Narrative [facility] ([place]) - 04/14/2023 8:08 AM CDT Fasting us Jose Marroquin MD LAB BLOOD ORDERABLES Final R esult [facility] ([place]) 1 [facility] Department [place] [address] * COLONOSCOPY (12/18/2021 7:19 AM MOLDED GRID AND PARTS INSPECTOR) Anatomical Region Laterality Modality Other Narrative Procedure Note Leopoldo Cutler MD - 12/18/2021 7:19 AM CST [facility] Patient Name: Faustino Leija Procedure Date: 12/18/2021 7:19 AM Date of : 1955 Admit Type: Outpatient Age: 66 Gender: Male Attending MD: Leopoldo Cutler M.D. Room: [facility] ENDOSCOPY ROOM 1 Note Status: Finalized Patient [...] under direct vision. The Pediatric Colonoscope [id number] was introducedthrough the anus and advanced to [...] 7:19 AM Procedure Code(s): --- Professional --- 59309, Colonoscopy, flexible; with biopsy, single or multiple Diagnosis Code(s): --- Professional --- Z86.010, Personal history of colonic polyps K64.8, Other hemorrhoids K63.5, Polyp of colon K57.30, Diverticulosis of large intestine without perforation orabscess without bleeding CPT copyright 2019 [employer]. All rights reserved. The codes documented in this report are preliminary and upon kitchen designer reviewmay be revised to meet current compliance requirements. Recognized by the [employer] for promoting quality in endoscopy Leopoldo Cutler MD ENDOSCOPY PROCEDURES Final Result from Last 3 Months or Most Recently Relevant to Health Maintenance Insurance [facility] MEDICARE MEDICARE AETNA SENIOR SUPPLEMENT AETNA [facility] MEDICARE SUPPLEMENT MEDICARE [facility] MEDICARE [employer] MEDICARE SUPPLEMENT Advance Directives For more information, please contact: [phone] * Full Code (Latest Code Status on File) Date Activated Date Inactivated Comments 12/18/2021 7:21 AM 12/18/2021 1:45 PM * Full Code Date Activated Date Inactivated Comments 12/18/2021 7:20 AM 12/18/2021 7:21 AM * Full Code Date Activated Date Inactivated Comments 12/31/2020 10:03 AM 01/04/2021 6:05 PM Care Teams Medical Planner Relationship Specialty Start Date End Date Moise Flores MD [address] [facility] [address] [facility] [address] [place] [address] PCP - General Family Medicine 04/27/24 Mario Banda MD [address] [facility] [address] [place] [address] Surgeon Orthopedic Surgery 04/27/24 Charles Reddy MD [address] [facility] [address] [place] [address] Consulting Physician Urology 04/27/24 Leopoldo Cutler MD [address] [place] [address] [place] [address] Consulting Physician Gastroenterology 04/27/24 Shari Gaston MD [address] [place] [address] Referring Physician Dermatology 10/24/24
== END 2025-01-11 15:48 | disposition home or self-care (01) ==
PROVIDERS: PCP Family Medicine; Visit Provider Urology
DX: N13.2 Hydronephrosis with renal and ureteral calculous obstruction (principal); R14.0 Abdominal distension (gaseous)
CPT/HCPCS: 74018; 74176

== ENCOUNTER 2025-01-17 08:42 | Outpatient (CLI) | payer MEDICARE, SELFPAY ==
--- NOTE | 2025-01-17 08:55 | ECG_ITS ---
Test Date: 2025-01-17 09:08:21 Measurements Intervals Provencal Rate: 70 P: 8 VT: 180 QRS: -19 QRSD: 115 T: 9 QT: 392 QTc: 426 Interpretive Statements SINUS RHYTHM MODERATE INTRAVENTRICULAR CONDUCTION DELAY [110+ ms QRS DURATION] No previous ECG available for comparison Electronically Signed On 01-18-2025 15:28:34 CDT by Darlyn Milton M.D.
--- OUTSIDE RECORDS SUMMARY | 2025-01-17 09:21 | XMS_ITS | Clinical Summary ---
Author Organization [facility] Care Team Providers Care Solar Electric Practitioner Name Role Phone Jose Marroquin MD Primary Care Provider [phone] Allergies No known active allergies Medications Aspirin [...] 108.9 kg (240 lb) 11/03/2015 4:09 PM MOBILE TESTER Height 185.4 cm (6' 1 ) 11/03/2015 4:09 PM MOBILE TESTER Body Mass Index 31.66 11/03/2015 4:09 PM MOBILE TESTER Plan of Treatment Health Maintenance Due Date [...] Insurance [employer] SENIOR SUPPLEMENTAL MEDICARE Care Teams Solar Electric Practitioner Relationship Specialty Start Date End Date Jose Marroquin MD PCP - General Internal Medicine 01/18/22
--- OUTSIDE RECORDS SUMMARY | 2025-01-17 09:22 | XMS_ITS | Referral Summary ---
Author Organization [facility] Address [address] [place] [address] Care Team Providers Care Payloader Operator Name Role Phone Moise Flores MD Primary Care Provider Mario Banda MD Unavailable [phone] Charles Reddy MD Unavailable [phone] Leopoldo Cutler MD Unavailable [phone] Shari Gaston MD Unavailable [phone] Encounters Date Type Department Care Team Description 01/11/2025 Orders Only [facility] [place] Health Information Management [address] [place] [address] Moise Flores MD 01/07/2025 8:26 AM CDT - 01/07/2025 11:59 PM CDT Hospital Encounter [facility] Medical Group Orthopedics and Sports Medicine [address] [phone] Discharge Disposition: Discharge to home or self care 01/07/2025 8:15 AM CDT Office Visit [facility] Medical [facility] Sports Medicine [address] [place] [phone] Patricia Alfaro NP Primary osteoarthritis of right knee (Primary Dx) 01/05/2025 JOS[facility] MIGUEL ED Outreach [facility] Care [facility] [address] [place] [address] Artemio Rodriguez MA 01/02/2025 5:04 PM CDT - 01/02/2025 7:36 PM CDT Emergency [facility] Emergency Department [address] [place] [id number] Renal colic on left side (Primary Dx) Discharge Disposition: Discharge to home or self care 11/25/2024 9:00 AM ADMINISTRATIVE SUPERVISOR Office Visit [facility] Medical Group Primary Care at [address] [phone] Moise Flores MD Medicare annual wellness visit, subsequent (Primary Dx); Acquired hypothyroidism; Basal cell carcinoma (BCC) of skin of nose; Mixed hyperlipidemia; Gastroesophageal reflux disease, unspecified whether esophagitis present; Essential hypertension; Primary osteoarthritis of right knee; History of prostate cancer; Impaired fasting glucose; History of anemia; History of colon polyps 11/19/2024 9:00 AM ADMINISTRATIVE SUPERVISOR Lab [address] [address] Acquired hypothyroidism; Anemia, unspecified type; Impaired fasting [...] mouth daily 90 tablet 3 024 Active tamsulosin (FLOMAX) 0.4 mg extended [...] ONCE DAILY BEFORE BREAKFAST 100 capsule 1 Active atorvastatin (LIPITOR) 10 mg tablet Take 1 tablet by mouth once daily 100 tablet 1 Active levothyroxine (SYNTHROID) 25 mcg tablet Take 1 tablet (25 mcg total) by mouth bark skinner before breakfast 90 tablet 3 Active benazepriL (LOTENSIN) 40 mg tablet Take 1 tablet by mouth once daily 100 tablet 1 024 2024 Discontinued levothyroxine (SYNTHROID) 25 mcg tablet TAKE 1 TABLET BY MOUTH ONCE DAILY IN THE MORNING BEFORE BREAKFAST 100 tablet 1 024 2024 Discontinued(R eorder) esomeprazole DR (NexIUM) 40 mg capsule TAKE [...] 11/25/2024 Assessment & Plan (11/25/2024 9:34 AM ADMINISTRATIVE SUPERVISOR): - last colonoscopy 2021, repeat in 3-5 years, he has opted to repeat in 5 years per patient Basal cell carcinoma (BCC) of skin of nose 10/24 Assessment & Plan (11/25/2024 9:37 AM ADMINISTRATIVE SUPERVISOR): - recent diagnosis from dermatology by Dr. Gaston - scheduled for Mohs surgery on 02/2025 Primary osteoarthritis of right knee 04/27/2024 Overview (11/25/2024): Follows with orthopedics Assessment & Plan (11/25/2024 9:26 AM ADMINISTRATIVE SUPERVISOR): - chronic, recurring condition, not at goal [...] weeks. Assessment & Plan (11/25/2024 9:30 AM ADMINISTRATIVE SUPERVISOR): - hx of anemia, not present now [...] year. Assessment & Plan (09/12/2022 1:55 PM ADMINISTRATIVE SUPERVISOR): Hemoglobin and ferritin normalized after iron supplementation [...] 09/06/2021 Assessment & Plan (11/25/2024 9:29 AM ADMINISTRATIVE SUPERVISOR): - chronic condition, waxes and wanes - [...] 03/06/2022 Assessment & Plan (12/20/2023 10:37 AM ADMINISTRATIVE SUPERVISOR): Patient should reduce sugar and carbs, increase exercise, maintain proper body weight, and will check an A1c once or twice yearly. Assessment & Plan (04/15/2023 3:26 PM CDT): Patient should reduce sugar and carbs, increase exercise, maintain proper body weight, and will check an A1c once or twice yearly. Assessment & Plan (09/12/2022 1:54 PM ADMINISTRATIVE SUPERVISOR): Patient should reduce sugar and carbs, increase exercise, maintain proper body weight, and will check an A1c once or twice yearly. Assessment & Plan (03/11/2022 1:39 PM CDT): Patient should reduce sugar and carbs, increase exercise, maintain proper body weight, and will check an A1c once or twice yearly. Assessment & Plan (11/07/2021 10:21 AM ADMINISTRATIVE SUPERVISOR): Patient should reduce sugar and carbs, increase exercise, maintain proper body weight, and will check an A1c once or twice yearly. 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 Assessment & Plan (04/15/2023 3:25 PM CDT): Patient is asymptomatic on current dose of levothyroxine and TSH free T4 are normal and we will repeat levels before next visit. Assessment & Plan (09/12/2022 1:55 PM ADMINISTRATIVE SUPERVISOR): Patient is asymptomatic on current dose of levothyroxine and TSH free T4 are normal and we will repeat levels before next visit. Assessment & Plan (03/11/2022 1:38 PM CDT): Patient is asymptomatic on current dose of levothyroxine and TSH free T4 are normal and we will repeat levels before next visit. Assessment & Plan (11/07/2021 10:20 AM ADMINISTRATIVE SUPERVISOR): Continue current dose of levothyroxine check levels before next visit. Assessment & Plan (09/06/2021 9:26 AM ADMINISTRATIVE SUPERVISOR): Patient is asymptomatic on current dose of levothyroxine and TSH free T4 are normal and we will repeat levels before next visit. Assessment & Plan (03/01/2021 3:55 PM CDT): Continue current dose of levothyroxine and check levels before next visit. Essential hypertension 12/31/2020 Overview (11/07/2021): Significant swelling on amlodipine Assessment & Plan (11/25/2024 9:39 AM ADMINISTRATIVE SUPERVISOR): Blood Pressure Management BP Readings from Last [...] 10/10/2023 Assessment & Plan (12/20/2023 10:37 AM ADMINISTRATIVE SUPERVISOR): Blood pressure well controlled on amlodipine, benazepril Assessment & Plan (04/15/2023 3:26 PM CDT): Blood pressure well controlled on amlodipine, benazepril Assessment & Plan (09/12/2022 1:55 PM ADMINISTRATIVE SUPERVISOR): Well controlled on the current regimen. Avoidance of salt, proper body weight, and routine exercise recommended. Assessment & Plan (03/11/2022 1:38 PM CDT): Well controlled on the current regimen. Avoidance of salt, proper body weight, and routine exercise recommended. Assessment & Plan (11/07/2021 10:20 AM ADMINISTRATIVE SUPERVISOR): Edema resolved with discontinuation of amlodipine. Blood pressure well controlled on benazepril 40 mg daily. Check metabolic panel again before next visit. Assessment & Plan (09/06/2021 9:28 AM ADMINISTRATIVE SUPERVISOR): Blood pressure close to goal but his [...] months Assessment & Plan (11/25/2024 9:28 AM ADMINISTRATIVE SUPERVISOR): - S/p prostatectomy 08/2018, Followed by Dr [...] 05/07/2016 Assessment & Plan (11/25/2024 9:27 AM ADMINISTRATIVE SUPERVISOR): - chronic condition, stable status - currently [...] 11/03/2015 Assessment & Plan (11/25/2024 9:27 AM ADMINISTRATIVE SUPERVISOR): - chronic condition - status: is adequately [...] 10/10/2023 Assessment & Plan (12/20/2023 10:37 AM ADMINISTRATIVE SUPERVISOR): Well controlled on current therapy and will check a lipid panel and LFTs in 6 months. Assessment & Plan (04/15/2023 3:26 PM CDT): Well controlled on current therapy and will check a lipid panel and LFTs in 6 months. Diet and exercise for elevated triglycerides. Assessment & Plan (09/12/2022 1:54 PM ADMINISTRATIVE SUPERVISOR): Well controlled on current therapy and will check a lipid panel and LFTs in 6 months. Assessment & Plan (03/11/2022 1:39 PM CDT): Well controlled on current therapy and will check a lipid panel and LFTs in 6 months. Assessment & Plan (11/07/2021 10:21 AM ADMINISTRATIVE SUPERVISOR): Continue his atorvastatin check lipids and LFTs before next visit. Assessment & Plan (09/06/2021 9:27 AM ADMINISTRATIVE SUPERVISOR): Well controlled on current therapy and will [...] 09/12/202204/27 Assessment & Plan (09/12/2022 1:55 PM ADMINISTRATIVE SUPERVISOR): Most likely related to his episode of [...] 04/27/2024 Assessment & Plan (11/07/2021 10:21 AM ADMINISTRATIVE SUPERVISOR): Resolved with resolution of his peripheral edema. Assessment & Plan (09/06/2021 9:28 AM ADMINISTRATIVE SUPERVISOR): Hold call bilateral lower extremity venous Doppler [...] 11/25/2024 Assessment & Plan (09/06/2021 9:26 AM ADMINISTRATIVE SUPERVISOR): I amsuspecting his lower extremity crampy pain [...] on file Legal Sex Male 11:59 AM ADMINISTRATIVE SUPERVISOR Gender Identity Male 12/07/2021 1:13 PM ADMINISTRATIVE SUPERVISOR Sexual Orientation Not on file Last Filed [...] Procedure Name Priority Date/Time Associated Diagnosis Comments SCAN - RADIOLOGY/IMAGING 01/11/2025 XR KNEE RIGHT 4 OR MORE VIEWS Schedule Routine, Read Routine (OP Routine) 01/07/2025 8:27 AM CDT Primary osteoarthritis of right knee IN ARTHROCENTESIS ASPIR&/INJ MAJOR JT/BURSA W/O US Routine [...] Routine 11/22/2024 EGFR Routine 11/19/2024 9:15 AM ADMINISTRATIVE SUPERVISOR Mixed hyperlipidemia DIFFERENTIAL AUTO Routine 11/19/2024 9:1 5 AM ADMINISTRATIVE SUPERVISOR Anemia, unspecified type COMPREHENSIVE METABOLIC PANEL Routine 11/19/2024 9:15 AM ADMINISTRATIVE SUPERVISOR Mixed hyperlipidemia HEMOGLOBIN A1C Routine 11/19/2024 9:15 AM ADMINISTRATIVE SUPERVISOR Impaired fasting glucose IRON PROFILE W/ IBC Routine 11/19/2024 9 :15 AM ADMINISTRATIVE SUPERVISOR Anemia, unspecified type FERRITIN Routine 11/19/2024 9:15 AM ADMINISTRATIVE SUPERVISOR Anemia, unspecified type CBC WITH AUTO DIFFERENTIAL Routine 11/19/2024 9:15 AM ADMINISTRATIVE SUPERVISOR Anemia, unspecified type THYROID FUNCTION CASCADE Routine 11/19/2024 9:15 AM ADMINISTRATIVE SUPERVISOR Acquired hypothyroidism HEPATITIS PANEL, ACUTE Routine 10/10/2023 9:16 AM ADMINISTRATIVE SUPERVISOR Encounter for hepatitis C screening test for low risk patient PSA SCREEN Routine 04/14/2023 6:30 AM CDT Screening PSA (prostate specific antigen) COLONOSCOPY 12/18/2021 7:19 AM ADMINISTRATIVE SUPERVISOR from Last 3 Months or Most Recently Relevant to Health Maintenance Results * SCAN - RADIOLOGY/IMAGING (01/11/2025) Anatomical Region Laterality Modality Other us Moise Flores MD Edited Result - Final * XR Knee Right 4 or More Views (01/07/2025 8:27 AM CDT) Anatomical Region Laterality Modality Lower Extremities, Knee Right Digital Radiography Narrative 01/07/2025 8:30 AM CDT Radiographs taken of the right knee today reveal mild to moderate degenerative changes with subchondral sclerosis, osteophyte formation, and diminished joint space. us Patricia Alfaro DRILL HAND IMG XR PROCEDURES Final Result * IN ARTHROCENTESIS ASPIR&/INJ MAJOR JT/BURSA W/O US (01/07/2025 [...] the procedure well with no immediate complications us Patricia Alfaro DRILL HAND IN CLINIC/BEDSIDE ORDER VALENTINE Final Result * [...] Bola Abdul M.D. RB: DALTON Report ID: [id number] Reading Location: [id number] Procedure Note Bola Abdul MD - 01/02/2025 [...] Bola Abdul M.D. RB: DALTON Report ID: [id number] Reading Location: [id number] us David DOYLE IMG CT PROCEDURES Final Resu [...] LAB BLOOD ORDERABLES Final R esult [facility] [address] Department of Laboratories [place], [place] [id number] * Differential, auto (01/02/2025 4:56 PM CDT) [...] BLOOD ORDERABLES Final R esult [facility] ([place]) [address] Department [place] [address] * CBC with auto differential (01/02/2025 4:56 [...] ([place]) MCHC 32.8 32.3 - 35.7 g/dL [facility] ([place] RDW CV 14.2 11.1 - 14.9 % [facility] ([place] RDW SD 45.8 35.7 - 48.1 fL [facility] ([place] NRBC abs 0.00 0.00 - 0.01 K/cumm [facility] ([place] Blood Venous blood specimen / Unknown 01/02/2025 4:56 PM CDT 01/02/2025 5:00 PM CDT Ellis Jang MD LAB BLOOD ORDERABLES Final R esult [facility] ([place] [address] [place] [address] * Lipase (01/02/2025 4:56 PM CDT) Lipase 26 10 - 99 Units/L Blood Venous blood specimen / Unknown 01/02/2025 4:56 PM CDT 01/02/2025 5:00 PM CDT Ellis Jang MD LAB BLOOD ORDERABLES Final R esult [facility] ([place] [address] [place] [address] * (ABNORMAL) Comprehensive metabolic panel (01/02/2025 4:56 PM CDT) Sodium 137 135 - 145 mmol/L Potassium, pl 3.6 3.3 - 4.9 mmol/L [facility] ([place] [...] LAB BLOOD ORDERABLES Final R esult [facility] ([place] [address] Department [place] [address] * Diabetic Eye Exam (11/22/2024) Generic External Data Provider HEALTH MAINTENANC E Final Result * eGFR (11/19/2024 9:15 AM ADMINISTRATIVE SUPERVISOR) eGFR 81 >=60 mL/min/1. 73 m2 Comment: [...] last reviewed 2021. Blood 11/19/2024 9:15 AM ADMINISTRATIVE SUPERVISOR 11/19/2024 9:32 AM ADMINISTRATIVE SUPERVISOR Moise Flores MD LAB BLOOD ORDERABLES Fi nal Result [facility] ([place] [address] Department [place] [address] * Differential, auto (11/19/2024 9:15 AM ADMINISTRATIVE SUPERVISOR) Neutrophil abs 3.1 1.5 - 6.5 K/cumm [...] revised on 2018. Blood 11/19/2024 9:15 AM ADMINISTRATIVE SUPERVISOR 11/19/2024 9:32 AM ADMINISTRATIVE SUPERVISOR us Moise Flores MD LAB BLOOD ORDERABLES Fi nal Result [facility] [address] [facility] [place] [address] * Thyroid Function [place] (11/19/2024 9:15 AM ADMINISTRATIVE SUPERVISOR) [facility] TSH 1.51 0.30 - 4.20 mcIUnit/mL Blood 11/19/2024 9:15 AM ADMINISTRATIVE SUPERVISOR 11/19/2024 9:32 AM ADMINISTRATIVE SUPERVISOR Moise Flores MD LAB BLOOD ORDERABLES Fi nal Result [facility] ([place] [address] [facility] [place] [address] * (ABNORMAL) Iron profile w/ IBC (11/19/2024 9:15 AM ADMINISTRATIVE SUPERVISOR) [facility] Iron 93 50 - 150 mcg/dL TIBC 434(H) 250 - 400 mcg/dL [facility] ([place] Transferrin saturation 21 20 - 50 % [facility] Blood 11/19/2024 9:15 AM ADMINISTRATIVE SUPERVISOR 11/19/2024 9:32 AM ADMINISTRATIVE SUPERVISOR Moise Flores MD LAB BLOOD ORDERABLES Fi nal Result Performing Organization Address City/[facility]/ZIP Co de Phone Number [facility] ([place]) 1 [facility] [place] [address] * (ABNORMAL) CBC with auto differential (11/19/2024 9:15 AM ADMINISTRATIVE SUPERVISOR) [facility] WBC 5.7 3.8 - 9.9 K/cumm Hgb [...] ([place]) MCH 29.0 27.1 - 33.3 pg [facility] ([place] MCHC 32.0(L) 32.3 - 35.7 g/dL [facility] ([place]) RDW CV 13.4 11.1 - 14.9 % [facility] ([place]) RDW SD 44.6 35.7 - 48.1 fL [facility] ([place]) NRBC abs 0.00 0.00 - 0.01 K/cumm [facility] Blood 11/19/2024 9:15 AM ADMINISTRATIVE SUPERVISOR 11/19/2024 9:32 AM ADMINISTRATIVE SUPERVISOR Moise Flores MD LAB BLOOD ORDERABLES Fi nal Result Performing Organization Address City/[facility] Co de Phone Number [facility] [address] [place] [address] * Hemoglobin A1c (11/19/2024 9:15 AM ADMINISTRATIVE SUPERVISOR) [facility] Hgb A1C 5.6 4.0 - 5.6 % Estimated Average Glucose 114 mg/dL [facility] Comment: The ADA recommends reporting an estimated Average Glucose (eAG) with all Hemoglobin A1c results using the equation derived from a study of 507 normal and diabetic adults. Minority populations were underrepresented and children were not included. (Diabetes Care 31:2949-1661, 2008). The eAG is not equivalent to a fasting glucose. Blood 11/19/2024 9:15 AM ADMINISTRATIVE SUPERVISOR 11/19/2024 9:32 AM ADMINISTRATIVE SUPERVISOR Moise Flores MD LAB BLOOD ORDERABLES Fi nal Result [facility] [facility] [address] [facility] [place] [address] * (ABNORMAL) Ferritin (11/19/2024 9:15 AM ADMINISTRATIVE SUPERVISOR) [facility] Ferritin 15(L) 30 - 400 ng/mL Blood 11/19/2024 9:15 AM ADMINISTRATIVE SUPERVISOR 11/19/2024 9:32 AM ADMINISTRATIVE SUPERVISOR us Moise Flores MD LAB BLOOD ORDERABLES Fi nal Result [facility] ([place] [address] Department [place] [address] * Comprehensive metabolic panel (11/19/2024 9:15 AM ADMINISTRATIVE SUPERVISOR) Sodium 140 135 - 145 mmol/L Potassium, [...] [facility]) Blood 11/19/2024 9:15 AM ADMINISTRATIVE SUPERVISOR 11/19/2024 9:32 AM ADMINISTRATIVE SUPERVISOR Moise Flores MD LAB BLOOD ORDERABLES Fi nal Result [facility] [address] Department [place] [address] * Hepatitis panel, acute Blood (10/10/2023 9:16 AM ADMINISTRATIVE SUPERVISOR) Hep A IgM Nonreactive Nonreactive [facility] ([place]) Comment: Interpretive Data: If Hep A IgM Ab is reported as Equivocal, a new sample should be drawn in two weeks for testing. Current interpretive data was last revised on 20. Testing performed by: [address] [address] Hep B core IgM Nonreactive Nonreactive [facility] ([place]) Comment: Interpretive Data If HepB Core IgM Ab is reported as Equivocal, a new sample should be drawn in two weeks for testing. Current interpretive data was last revised on 20. Testing performed by: [address] [address] Hep C Ab Nonreactive Nonreactive [facility] [...] last revised on 2020. Testing performed by: [address] [address] HepBsAg Nonreactive Nonreactive [facility] ([place]) Comment:Testing performed by : [address] [address] Blood 10/10/2023 9:16 AM ADMINISTRATIVE SUPERVISOR 10/10/2023 1:48 PM ADMINISTRATIVE SUPERVISOR Jose Marroquin MD LAB MICROBIOLOGY - GENERAL O RDERABLES Final Result Performing Organization Address City/[facility]/ZIP Co de Phone Number [facility] [address] [place] [address] * PSA screen (04/14/2023 6:30 AM CDT) PSA-Total <0.10 <=5.40 ng/mL [facility] Comment: Interpretive Data AGE SEX REFERENCE INTERVAL [...] CDT 04/14/2023 7:26 AM CDT Narrative [facility] - 04/14/2023 8:08 AM CDT Fasting us Jose Marroquin MD LAB BLOOD ORDERABLES Final R esult Performing Organization Address [facility] Co de Phone Number [facility] [address] [place] [address] * COLONOSCOPY (12/18/2021 7:19 AM ADMINISTRATIVE SUPERVISOR) Anatomical Region Laterality Modality Other Narrative Procedure Note Leopoldo Cutler MD - 12/18/2021 7:19 AM CST [facility] Patient Name: Faustino Leija Procedure Date: 12/18/2021 7:19 AM Date of : 1955 Admit Type: Outpatient Age: 66 Gender: Male Attending MD: Leopoldo Cutler M.D. Room: [facility] ENDOSCOPY ROOM 1 Note Status: Finalized [...] under direct vision. The Pediatric Colonoscope [id number] was introducedthrough the anus and advanced to [...] 7:19 AM Procedure Code(s): --- Professional --- 77284, Colonoscopy, flexible; with biopsy, single or multiple Diagnosis Code(s): --- Professional --- Z86.010, Personal history of colonic polyps K64.8, Other hemorrhoids K63.5, Polyp of colon K57.30, Diverticulosis of large intestine without perforation orabscess without bleeding CPT copyright 2019 [employer]. All rights reserved. The codes documented in this report are preliminary and upon coder operator reviewmay be revised to meet current compliance requirements. Recognized by the [place] [employer] for promoting quality in endoscopy Leopoldo Cutler MD ENDOSCOPY PROCEDURES Final Result from Last 3 Months or Most Recently Relevant to Health Maintenance Insurance [facility] MEDICARE MEDICARE AETNA SENIOR SUPPLEMENT AETNA HUMANA MEDICARE SUPPLEMENT MEDICARE AETNA MEDICARE HUMANA MEDICARE SUPPLEMENT Advance Directives For more information, please contact: [phone] * Full Code (Latest Code Status on File) Date Activated Date Inactivated Comments 12/18/2021 7:21 AM 12/18/2021 1:45 PM * Full Code Date Activated Date Inactivated Comments 12/18/2021 7:20 AM 12/18/2021 7:21 AM * Full Code Date Activated Date Inactivated Comments 12/31/2020 10:03 AM 01/04/2021 6:05 PM Care Teams Payloader Operator Relationship Specialty Start Date End Date Moise Flores MD [address] [facility] [address] [place] [address] PCP - General Family Medicine 04/27/24 Mario Banda MD [address] [facility] [address] [place] [address] Surgeon Orthopedic Surgery 04/27/24 Charles Reddy MD [address] [facility] [address] [place] [address] Consulting Physician Urology 04/27/24 Leopoldo Cutler MD [address] [place] [address] [address] [place] [address] Consulting Physician Gastroenterology 04/27/24 Shari Gaston MD [address] [place], [place] [id number] Referring Physician Dermatology 10/24/24
--- OUTSIDE RECORDS SUMMARY | 2025-01-17 09:22 | XMS_ITS | Clinical Summary ---
Author Organization [facility] Address [address] [place] [address] Care Team Providers Care Rare/Endangered Species Specialist Name Role Phone Rashaad Patino MD Primary Care Provider Source Comments [facility],non-owned Affiliates and Associated Physician Practices is amultiple site organization consisting of ambulatory clinics and hospital sitesin [place], [place], [place] and [place]. This disclosure is being madepursuant to the Care Everywhere program and may not contain all information available regarding this patient. Last updated 18.[facility] Allergies No known active allergies Medications * [...] Comments Blood Pressure 138/82 12/21/2020 11:00 AM VIDEO GAME REPAIR TECHNICIAN Pulse 82 12/21/2020 11:00 AM VIDEO GAME REPAIR TECHNICIAN Temperature 37 C (98.6 F) 12/21/2020 11:00 AM VIDEO GAME REPAIR TECHNICIAN Respiratory Rate 18 12/21/2020 11:00 AM VIDEO GAME REPAIR TECHNICIAN Oxygen Saturation 98% 12/21/2020 11:00 AM VIDEO GAME REPAIR TECHNICIAN Inhaled Oxygen Concentration - - Weight 104.3 kg (230 lb) 12/20/2020 1:41 PM VIDEO GAME REPAIR TECHNICIAN Height 185.4 cm (6' 1 ) 12/20/2020 1:41 PM VIDEO GAME REPAIR TECHNICIAN Body Mass Index 30.34 12/20/2020 1:41 PM VIDEO GAME REPAIR TECHNICIAN Plan of Treatment Health Maintenance Due Date [...] (CALCIUM TOTAL) AM Draw 12/21/2020 4:52 AM VIDEO GAME REPAIR TECHNICIAN Numbness of perineum from Last 3 Months or Most Recently Relevant to Health Maintenance Results * (ABNORMAL) BASIC METABOLIC PANEL (CALCIUM TOTAL) (12/21/2020 4:52 AM VIDEO GAME REPAIR TECHNICIAN) Glucose 97 70 - 105 mg/dL 12/21/2020 5:37 AM VIDEO GAME REPAIR TECHNICIAN [facility] Sodium 135(L) 136 - 145 mmol/L 12/21/2020 5:37 AM VIDEO GAME REPAIR TECHNICIAN [facility] Potassium 4.2 3.5 - 5.1 mmol/L 12/21/2020 5:37 AM VIDEO GAME REPAIR TECHNICIAN [facility] Chloride 107 98 - 107 mmol/L 12/21/2020 5:37 AM [facility] CO2 22(L) 23 - 31 mmol/L 12/21/2020 5:37 AM VIDEO GAME REPAIR TECHNICIAN [facility] Calcium 8.7 8.4 - 10.4 mg/dL 12/21/2020 5:37 AM [facility] Anion Gap 6(L) 8 - 18 mmol/L 12/21/2020 5:37 AM [facility] Comment:Attention clinician: Reference Range change. BUN 24 8.4 - 25.7 mg/dL 12/21/2020 5:37 AM [facility] Creatinine 0.79 0.72 - 1.25 mg/dL 12/21/2020 5:37 AM [facility] eGFR by MDRD >60 >60 mL/min/1.7 3m2 12/21/2020 5:37 AM [facility] eGFR by MDRD >60 >60 mL/min/1.7 3m2 12/21/2020 5:37 AM [facility] Blood BLOOD SPECIMEN / Unknown Venipuncture / Unknown 12/21/2020 4:52 AM VIDEO GAME REPAIR TECHNICIAN 12/21/2020 5:02 AM VIDEO GAME REPAIR TECHNICIAN Ro Solorio APRN-[facility] - SOUND EQUIPMENT MECHANIC RY ORDERABLES [facility] [address] [place] [address] from Last 3 Months or Most Recently Relevant to Health Maintenance Advance Directives * Full Code (Latest Code Status on File) Date Activated Date Inactivated Comments 12/20/2020 3:36 PM 12/21/2020 12:23 PM Care Teams Rare/Endangered Species Specialist Relationship Specialty Start [place] [id number] [address] PCP - General Internal Medicine 09/22/20
--- OUTSIDE RECORDS SUMMARY | 2025-01-17 09:22 | XMS_ITS ---
Author Organization [facility] Address [address] [place] [address] Care Team Providers Care Call Center Professional Name Role Phone Moise Flores MD Primary Care Provider Mario Banda MD Unavailable [phone] Charles Mina MD Unavailable [phone] Leopoldo Cutler MD Unavailable [phone] Shari Gaston MD Unavailable [phone] Active Problems Problem Noted Date Diagnosed Date Renal colic on left side 01/02/2025 History of colon polyps 11/25/2024 Assessment & Plan (11/25/2024 9:34 AM AIRPLANE RENTAL CLERK): - last colonoscopy 2021, repeat in 3-5 years, he has opted to repeat in 5 years per patient Basal cell carcinoma (BCC) of skin of nose 10/24 Assessment & Plan (11/25/2024 9:37 AM AIRPLANE RENTAL CLERK): - recent diagnosis from dermatology by Dr. Gaston - scheduled for Mohs surgery on 02/2025 Primary osteoarthritis of right knee 04/27/2024 Overview (11/25/2024): Follows with orthopedics Assessment & Plan (11/25/2024 9:26 AM AIRPLANE RENTAL CLERK): - chronic, recurring condition, not at goal [...] weeks. Assessment & Plan (11/25/2024 9:30 AM AIRPLANE RENTAL CLERK): - hx of anemia, not present now [...] year. Assessment & Plan (09/12/2022 1:55 PM AIRPLANE RENTAL CLERK): Hemoglobin and ferritin normalized after iron supplementation [...] 09/06/2021 Assessment & Plan (11/25/2024 9:29 AM AIRPLANE RENTAL CLERK): - chronic condition, waxes and wanes - [...] 03/06/2022 Assessment & Plan (12/20/2023 10:37 AM AIRPLANE RENTAL CLERK): Patient should reduce sugar and carbs, increase exercise, maintain proper body weight, and will check an A1c once or twice yearly. Assessment & Plan (04/15/2023 3:26 PM CDT): Patient should reduce sugar and carbs, increase exercise, maintain proper body weight, and will check an A1c once or twice yearly. Assessment & Plan (09/12/2022 1:54 PM AIRPLANE RENTAL CLERK): Patient should reduce sugar and carbs, increase exercise, maintain proper body weight, and will check an A1c once or twice yearly. Assessment & Plan (03/11/2022 1:39 PM CDT): Patient should reduce sugar and carbs, increase exercise, maintain proper body weight, and will check an A1c once or twice yearly. Assessment & Plan (11/07/2021 10:21 AM AIRPLANE RENTAL CLERK): Patient should reduce sugar and carbs, increase exercise, maintain proper body weight, and will check an A1c once or twice yearly. 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 Assessment & Plan (04/15/2023 3:25 PM CDT): Patient is asymptomatic on current dose of levothyroxine and TSH free T4 are normal and we will repeat levels before next visit. Assessment & Plan (09/12/2022 1:55 PM AIRPLANE RENTAL CLERK): Patient is asymptomatic on current dose of levothyroxine and TSH free T4 are normal and we will repeat levels before next visit. Assessment & Plan (03/11/2022 1:38 PM CDT): Patient is asymptomatic on current dose of levothyroxine and TSH free T4 are normal and we will repeat levels before next visit. Assessment & Plan (11/07/2021 10:20 AM AIRPLANE RENTAL CLERK): Continue current dose of levothyroxine check levels before next visit. Assessment & Plan (09/06/2021 9:26 AM AIRPLANE RENTAL CLERK): Patient is asymptomatic on current dose of levothyroxine and TSH free T4 are normal and we will repeat levels before next visit. Assessment & Plan (03/01/2021 3:55 PM CDT): Continue current dose of levothyroxine and check levels before next visit. Essential hypertension 12/31/2020 Overview (11/07/2021): Significant swelling on amlodipine Assessment & Plan (11/25/2024 9:39 AM AIRPLANE RENTAL CLERK): Blood Pressure Management BP Readings from Last [...] 10/10/2023 Assessment & Plan (12/20/2023 10:37 AM AIRPLANE RENTAL CLERK): Blood pressure well controlled on amlodipine, benazepril Assessment & Plan (04/15/2023 3:26 PM CDT): Blood pressure well controlled on amlodipine, benazepril Assessment & Plan (09/12/2022 1:55 PM AIRPLANE RENTAL CLERK): Well controlled on the current regimen. Avoidance of salt, proper body weight, and routine exercise recommended. Assessment & Plan (03/11/2022 1:38 PM CDT): Well controlled on the current regimen. Avoidance of salt, proper body weight, and routine exercise recommended. Assessment & Plan (11/07/2021 10:20 AM AIRPLANE RENTAL CLERK): Edema resolved with discontinuation of amlodipine. Blood pressure well controlled on benazepril 40 mg daily. Check metabolic panel again before next visit. Assessment & Plan (09/06/2021 9:28 AM AIRPLANE RENTAL CLERK): Blood pressure close to goal but his [...] months Assessment & Plan (11/25/2024 9:28 AM AIRPLANE RENTAL CLERK): - S/p prostatectomy 08/2018, Followed by Dr [...] 05/07/2016 Assessment & Plan (11/25/2024 9:27 AM AIRPLANE RENTAL CLERK): - chronic condition, stable status - currently [...] 11/03/2015 Assessment & Plan (11/25/2024 9:27 AM AIRPLANE RENTAL CLERK): - chronic condition - status: is adequately [...] 10/10/2023 Assessment & Plan (12/20/2023 10:37 AM AIRPLANE RENTAL CLERK): Well controlled on current therapy and will check a lipid panel and LFTs in 6 months. Assessment & Plan (04/15/2023 3:26 PM CDT): Well controlled on current therapy and will check a lipid panel and LFTs in 6 months. Diet and exercise for elevated triglycerides. Assessment & Plan (09/12/2022 1:54 PM AIRPLANE RENTAL CLERK): Well controlled on current therapy and will check a lipid panel and LFTs in 6 months. Assessment & Plan (03/11/2022 1:39 PM CDT): Well controlled on current therapy and will check a lipid panel and LFTs in 6 months. Assessment & Plan (11/07/2021 10:21 AM AIRPLANE RENTAL CLERK): Continue his atorvastatin check lipids and LFTs before next visit. Assessment & Plan (09/06/2021 9:27 AM AIRPLANE RENTAL CLERK): Well controlled on current therapy and will [...] 09/12/202204/27 Assessment & Plan (09/12/2022 1:55 PM AIRPLANE RENTAL CLERK): Most likely related to his episode of [...] 04/27/2024 Assessment & Plan (11/07/2021 10:21 AM AIRPLANE RENTAL CLERK): Resolved with resolution of his peripheral edema. Assessment & Plan (09/06/2021 9:28 AM AIRPLANE RENTAL CLERK): Hold call bilateral lower extremity venous Doppler [...] 11/25/2024 Assessment & Plan (09/06/2021 9:26 AM AIRPLANE RENTAL CLERK): I amsuspecting his lower extremity crampy pain with activities his due to his lumbar degenerative disc disease. He may need to follow-up with neurosurgeon eventually. Insomnia secondary to chronic pain 12/01/2020 04/27/2024
--- OUTSIDE RECORDS SUMMARY | 2025-01-17 09:22 | XMS_ITS | Clinical Summary ---
Author Organization [facility] Address [address] [place] [address] Care Team Providers Care Sandwich Wrapper Name Role Phone Moise Flores MD Primary Care Provider Mario Banda MD Unavailable [phone] Charles Reddy MD Unavailable [phone] Leopoldo Cutler MD Unavailable [phone] Shari Gaston MD Unavailable [phone] Allergies No known active allergies Medications [...] Collaborating physician Rashaad Maier MD 10 capsule Active metoclopramide (REGLAN) 10 mg tablet Take [...] as needed for pain Collaborating physician Rashaad Maire MD 20 tablet Active Additional Information Patient [...] once daily 100 tablet 1 025 Active levothyroxine (SYNTHROID) 25 mcg tablet Take 1 tablet (25 mcg total) by mouth electroplating laborer before breakfast 90 tablet 3 Active benazepriL [...] 11/25/2024 Assessment & Plan (11/25/2024 9:34 AM CERTIFIED PEER SPECIALIST): - last colonoscopy 2021, repeat in 3-5 years, he has opted to repeat in 5 years per patient Basal cell carcinoma (BCC) of skin of nose 10/24 Assessment & Plan (11/25/2024 9:37 AM CERTIFIED PEER SPECIALIST): - recent diagnosis from dermatology by Dr. Gaston - scheduled for Mohs surgery on 02/2025 Primary osteoarthritis of right knee 04/27/2024 Overview (11/25/2024): Follows with orthopedics Assessment & Plan (11/25/2024 9:26 AM CERTIFIED PEER SPECIALIST): - chronic, recurring condition, not at goal [...] weeks. Assessment & Plan (11/25/2024 9:30 AM CERTIFIED PEER SPECIALIST): - hx of anemia, not present now [...] year. Assessment & Plan (09/12/2022 1:55 PM CERTIFIED PEER SPECIALIST): Hemoglobin and ferritin normalized after iron supplementation [...] 09/06/2021 Assessment & Plan (11/25/2024 9:29 AM CERTIFIED PEER SPECIALIST): - chronic condition, waxes and wanes - [...] 03/06/2022 Assessment & Plan (12/20/2023 10:37 AM CERTIFIED PEER SPECIALIST): Patient should reduce sugar and carbs, increase exercise, maintain proper body weight, and will check an A1c once or twice yearly. Assessment & Plan (04/15/2023 3:26 PM CDT): Patient should reduce sugar and carbs, increase exercise, maintain proper body weight, and will check an A1c once or twice yearly. Assessment & Plan (09/12/2022 1:54 PM CERTIFIED PEER SPECIALIST): Patient should reduce sugar and carbs, increase exercise, maintain proper body weight, and will check an A1c once or twice yearly. Assessment & Plan (03/11/2022 1:39 PM CDT): Patient should reduce sugar and carbs, increase exercise, maintain proper body weight, and will check an A1c once or twice yearly. Assessment & Plan (11/07/2021 10:21 AM CERTIFIED PEER SPECIALIST): Patient should reduce sugar and carbs, increase exercise, maintain proper body weight, and will check an A1c once or twice yearly. Assessment & Plan (09/06/2021 9:28 AM CERTIFIED PEER SPECIALIST): Patient should reduce sugar and carbs, increase [...] feet and calves, no significant pain - usp - 10 years or more - has [...] was seeing pain management at [facility] - eventually became bed ridden - then [...] 12/31/2020 Assessment & Plan (11/25/2024 9:23 AM CERTIFIED PEER SPECIALIST): - chronic condition, stable status - Patient [...] 10/10/2023 Assessment & Plan (12/20/2023 10:36 AM CERTIFIED PEER SPECIALIST): Patient is asymptomatic on current dose of levothyroxine and TSH free T4 are normal and we will repeat levels before next visit. Assessment & Plan (04/15/2023 3:25 PM CDT): Patient is asymptomatic on current dose of levothyroxine and TSH free T4 are normal and we will repeat levels before next visit. Assessment & Plan (09/12/2022 1:55 PM CERTIFIED PEER SPECIALIST): Patient is asymptomatic on current dose of levothyroxine and TSH free T4 are normal and we will repeat levels before next visit. Assessment & Plan (03/11/2022 1:38 PM CDT): Patient is asymptomatic on current dose of levothyroxine and TSH free T4 are normal and we will repeat levels before next visit. Assessment & Plan (11/07/2021 10:20 AM CERTIFIED PEER SPECIALIST): Continue current dose of levothyroxine check levels before next visit. Assessment & Plan (09/06/2021 9:26 AM CERTIFIED PEER SPECIALIST): Patient is asymptomatic on current dose of levothyroxine and TSH free T4 are normal and we will repeat levels before next visit. Assessment & Plan (03/01/2021 3:55 PM CDT): Continue current dose of levothyroxine and check levels before next visit. Essential hypertension 12/31/2020 Overview (11/07/2021): Significant swelling on amlodipine Assessment & Plan (11/25/2024 9:39 AM CERTIFIED PEER SPECIALIST): Blood Pressure Management BP Readings from Last [...] 10/10/2023 Assessment & Plan (12/20/2023 10:37 AM CERTIFIED PEER SPECIALIST): Blood pressure well controlled on amlodipine, benazepril Assessment & Plan (04/15/2023 3:26 PM CDT): Blood pressure well controlled on amlodipine, benazepril Assessment & Plan (09/12/2022 1:55 PM CERTIFIED PEER SPECIALIST): Well controlled on the current regimen. Avoidance of salt, proper body weight, and routine exercise recommended. Assessment & Plan (03/11/2022 1:38 PM CDT): Well controlled on the current regimen. Avoidance of salt, proper body weight, and routine exercise recommended. Assessment & Plan (11/07/2021 10:20 AM CERTIFIED PEER SPECIALIST): Edema resolved with discontinuation of amlodipine. Blood pressure well controlled on benazepril 40 mg daily. Check metabolic panel again before next visit. Assessment & Plan (09/06/2021 9:28 AM CERTIFIED PEER SPECIALIST): Blood pressure close to goal but his [...] months Assessment & Plan (11/25/2024 9:28 AM CERTIFIED PEER SPECIALIST): - S/p prostatectomy 08/2018, Followed by Dr [...] 05/07/2016 Assessment & Plan (11/25/2024 9:27 AM CERTIFIED PEER SPECIALIST): - chronic condition, stable status - currently [...] 11/03/2015 Assessment & Plan (11/25/2024 9:27 AM CERTIFIED PEER SPECIALIST): - chronic condition - status: is adequately [...] 10/10/2023 Assessment & Plan (12/20/2023 10:37 AM CERTIFIED PEER SPECIALIST): Well controlled on current therapy and will check a lipid panel and LFTs in 6 months. Assessment & Plan (04/15/2023 3:26 PM CDT): Well controlled on current therapy and will check a lipid panel and LFTs in 6 months. Diet and exercise for elevated triglycerides. Assessment & Plan (09/12/2022 1:54 PM CERTIFIED PEER SPECIALIST): Well controlled on current therapy and will check a lipid panel and LFTs in 6 months. Assessment & Plan (03/11/2022 1:39 PM CDT): Well controlled on current therapy and will check a lipid panel and LFTs in 6 months. Assessment & Plan (11/07/2021 10:21 AM CERTIFIED PEER SPECIALIST): Continue his atorvastatin check lipids and LFTs before next visit. Assessment & Plan (09/06/2021 9:27 AM CERTIFIED PEER SPECIALIST): Well controlled on current therapy and will [...] 09/12/202204/27 Assessment & Plan (09/12/2022 1:55 PM CERTIFIED PEER SPECIALIST): Most likely related to his episode of [...] 04/27/2024 Assessment & Plan (11/07/2021 10:21 AM CERTIFIED PEER SPECIALIST): Resolved with resolution of his peripheral edema. Assessment & Plan (09/06/2021 9:28 AM CERTIFIED PEER SPECIALIST): Hold call bilateral lower extremity venous Doppler [...] prevention, proper nutrition, and suggested joining [facility] to accomplish most of these goals. [...] fall prevention, proper nutrition, and suggested joining [facility] to accomplish most of these goals. Patient [...] 11/25/2024 Assessment & Plan (09/06/2021 9:26 AM CERTIFIED PEER SPECIALIST): I amsuspecting his lower extremity crampy pain with activities his due to his lumbar degenerative disc disease. He may need to follow-up with neurosurgeon eventually. Insomnia secondary to chronic pain 12/01/2020 04/27/2024 Encounters Date Type Department Care Team Description 01/11/2025 Orders Only [facility] [address] [place] [address] Moise Flores MD 01/07/2025 8:26 AM CDT - 01/07/2025 11:59 PM CDT Hospital Encounter [facility] Orthopedics and Sports Medicine [address] [place] [address] [address] [place] [address] Discharge Disposition: Discharge to home or self care 01/07/2025 8:15 AM CDT Office Visit [facility] Orthopedics and Sports Medicine [address] [place] [address] [address] [place] [address] Patricia Alfaro NP Primary osteoarthritis of right knee (Primary Dx) 01/05/2025 JOSÉ MIGUEL ED Outreach [facility] Accountable Care Organization [address] [place] [address] Artemio Rodriguez MA 01/02/2025 5:04 PM CDT - 01/02/2025 7:36 PM CDT Emergency [facility] Emergency Department [address] [place] [address] Renal colic on left side (Primary Dx) Discharge Disposition: Discharge to home or self care 11/25/2024 9:00 AM CERTIFIED PEER SPECIALIST Office Visit [facility] Primary Care at [address] [address] Moise Flores MD Medicare annual wellness visit, subsequent (Primary Dx); Acquired hypothyroidism; Basal cell carcinoma (BCC) of skin of nose; Mixed hyperlipidemia; Gastroesophageal reflux disease, unspecified whether esophagitis present; Essential hypertension; Primary osteoarthritis of right knee; History of prostate cancer; Impaired fasting glucose; History of anemia; History of colon polyps 11/19/2024 9:00 AM CERTIFIED PEER SPECIALIST Lab [address] [address] Acquired hypothyroidism; Anemia, unspecified type; Impaired fasting [...] History Relation Name Comments Heart attack Brother Vivek Cancer Father Edabilio Early Father Edabilio Heart attack Father Edabilio Hypertension Father Edabilio Prostate cancer Father Edabilio Cancer Mother Sarah Hypertension Mother Sarah Lung [...] on file Legal Sex Male 11:59 AM CERTIFIED PEER SPECIALIST Gender Identity Male 12/07/2021 1:13 PM CERTIFIED PEER SPECIALIST Sexual Orientation Not on file Obstetrics History [...] Prostate Cancer Screening-PSA 04/14/2024 04/14/2023 Covid-19 Vaccine (2023-2 5 season) 2024 10/11/2022, 06/05/2022, 08/03/2021, Additional [...] AM CDT Primary osteoarthritis of right knee AL ARTHROCENTESIS ASPIR&/INJ MAJOR JT/BURSA W/O US Routine [...] Routine 11/22/2024 EGFR Routine 11/19/2024 9:15 AM CERTIFIED PEER SPECIALIST Mixed hyperlipidemia DIFFERENTIAL AUTO Routine 11/19/2024 9:1 5 AM CERTIFIED PEER SPECIALIST Anemia, unspecified type COMPREHENSIVE METABOLIC PANEL Routine 11/19/2024 9:15 AM CERTIFIED PEER SPECIALIST Mixed hyperlipidemia HEMOGLOBIN A1C Routine 11/19/2024 9:15 AM CERTIFIED PEER SPECIALIST Impaired fasting glucose IRON PROFILE W/ IBC Routine 11/19/2024 9 :15 AM CERTIFIED PEER SPECIALIST Anemia, unspecified type FERRITIN Routine 11/19/2024 9:15 AM CERTIFIED PEER SPECIALIST Anemia, unspecified type CBC WITH AUTO DIFFERENTIAL Routine 11/19/2024 9:15 AM CERTIFIED PEER SPECIALIST Anemia, unspecified type THYROID FUNCTION CASCADE Routine 11/19/2024 9:15 AM CERTIFIED PEER SPECIALIST Acquired hypothyroidism HEPATITIS PANEL, ACUTE Routine 10/10/2023 9:16 AM CERTIFIED PEER SPECIALIST Encounter for hepatitis C screening test for low risk patient PSA SCREEN Routine 04/14/2023 6:30 AM CDT Screening PSA (prostate specific antigen) COLONOSCOPY 12/18/2021 7:19 AM CERTIFIED PEER SPECIALIST from Last 3 Months or Most Recently [...] and diminished joint space. us Patricia Alfaro NP IMG XR PROCEDURES Final Result * AL ARTHROCENTESIS ASPIR&/INJ MAJOR JT/BURSA W/O US (01/07/2025 [...] with no immediate complications us Patricia Alfaro SUPERVISOR DRAPERY HANGING IN CLINIC/BEDSIDE ORDER VALENTIEN Final Result * CT Abdomen Pelvis W [...] Bola Abdul M.D. RB: DALTON Report ID: [id number] Reading Location: [id number] Procedure Note Bola Abdul MD - 01/02/2025 [...] Bola Abdul M.D. RB: DALTON Report ID: [id number] Reading Location: [place] [address] PROCEDURES Final Resu [...] BLOOD ORDERABLES Final R esult [facility] [place] [facility] [place] [address] * Differential, auto (01/02/2025 4:56 PM CDT) [...] Final R esult [facility] ([place]) [facility] [place] [address] * CBC with auto differential (01/02/2025 4:56 [...] Final R esult [facility] ([place]) 1 [facility] [place] [address] * Lipase (01/02/2025 4:56 PM CDT) Lipase 26 10 - 99 Units/L Blood Venous blood specimen / Unknown 01/02/2025 4:56 PM CDT 01/02/2025 5:00 PM CDT us Ellis Jang MD LAB BLOOD ORDERABLES Final R esult [facility] ([place]) 1 [facility] [place] [address] * (ABNORMAL) Comprehensive metabolic panel (01/02/2025 4:56 [...] classification and Diagnosis of Diabetes Diabetes Care 202; 46: S19-S40. Current interpretive data was last [...] BLOOD ORDERABLES Final R esult [facility] ([place]) 1 [facility] [place] [address] * Diabetic Eye Exam (11/22/2024) us Generic External Data Provider HEALTH MAINTENANC E Final Result * eGFR (11/19/2024 9:15 AM CERTIFIED PEER SPECIALIST) eGFR 81 >=60 mL/min/1. 73 m2 Comment: [...] last reviewed 2021. Blood 11/19/2024 9:15 AM CERTIFIED PEER SPECIALIST 11/19/2024 9:32 AM CERTIFIED PEER SPECIALIST us Moise Flores MD LAB BLOOD ORDERABLES Fi nal Result [facility] ([place] 1 [facility] [place] [address] * Differential, auto (11/19/2024 9:15 AM CERTIFIED PEER SPECIALIST) Neutrophil abs 3.1 1.5 - 6.5 K/cumm [...] revised on 2018. Blood 11/19/2024 9:15 AM CERTIFIED PEER SPECIALIST 11/19/2024 9:32 AM CERTIFIED PEER SPECIALIST Moise Flores MD LAB BLOOD ORDERABLES Fi nal Result Performing Organization Address City/[facility] Co de Phone Number [facility] ([place]) 1 [facility] [place] [address] * Thyroid Function Endeavor (11/19/2024 9:15 AM CERTIFIED PEER SPECIALIST) Pathologist [facility] TSH 1.51 0.30 - 4.20 mcIUnit/mL Blood 11/19/2024 9:15 AM CERTIFIED PEER SPECIALIST 11/19/2024 9:32 AM CERTIFIED PEER SPECIALIST Moise Flores MD LAB BLOOD ORDERABLES nal Result Performing Organization Address [facility] de Phone Number [facility] ([place]) 1 [facility] [place] [address] * (ABNORMAL) Iron profile w/ IBC (11/19/2024 9:15 AM CERTIFIED PEER SPECIALIST) [facility] Iron 93 50 - 150 mcg/dL TIBC 434(H) 250 - 400 mcg/dL [facility] ([place]) Transferrin saturation 21 20 - 50 % [facility] ([place]) Blood 11/19/2024 9:15 AM CERTIFIED PEER SPECIALIST 11/19/2024 9:32 AM CERTIFIED PEER SPECIALIST Moise Flores MD LAB BLOOD ORDERABLES nal Result Performing Organization Address [facility] Co de Phone Number [facility] ([place]) 1 [facility] [place] [address] * (ABNORMAL) CBC with auto differential (11/19/2024 9:15 AM CERTIFIED PEER SPECIALIST) [facility] WBC 5.7 3.8 - 9.9 K/cumm Hgb 13.9 13.0 - 17.5 g/dL [facility] ([place] Hct 43.5 38.9 - 50.3 % [facility] Plt 328 150 - 400 K/cumm [facility] ([place] MPV 9.4 9.1 - 12.3 fL [facility] ([place]) RBC 4.79 4.30 - 5.80 M/cumm [facility] ([place]) MCV 90.8 81.3 - 96.4 fL [facility] ([place] MCH 29.0 27.1 - 33.3 pg [facility] ([place] MCHC 32.0(L) 32.3 - 35.7 g/dL [facility] ([place]) RDW CV 13.4 11.1 - 14.9 % [facility] ([place] RDW SD 44.6 35.7 - 48.1 fL [facility] ([place] NRBC abs 0.00 0.00 - 0.01 K/cumm [facility] ([place]) Blood 11/19/2024 9:15 AM CERTIFIED PEER SPECIALIST 11/19/2024 9:32 AM CERTIFIED PEER SPECIALIST Moise Flores MD LAB BLOOD ORDERABLES Fi nal Result [facility] ([place]) 1 [facility] [employer] [place], [place] [id number] * Hemoglobin A1c (11/19/2024 9:15 AM CERTIFIED PEER SPECIALIST) Hgb A1C 5.6 4.0 - 5.6 % Estimated Average Glucose 114 mg/dL [facility] ([place]) Comment: The ADA recommends reporting an estimated Average Glucose (eAG) with all Hemoglobin A1c results using the equation derived from a study of 507 normal and diabetic adults. Minority populations were underrepresented and children were not included. (Diabetes Care 31:0190-3382, 2008). The eAG is not equivalent to a fasting glucose. Blood 11/19/2024 9:15 AM CERTIFIED PEER SPECIALIST 11/19/2024 9:32 AM CERTIFIED PEER SPECIALIST Moise Flores MD LAB BLOOD ORDERABLES Fi nal Result [facility] ([place] [address] [facility] [place] [address] * (ABNORMAL) Ferritin (11/19/2024 9:15 AM CERTIFIED PEER SPECIALIST) Ferritin 15(L) 30 - 400 ng/mL Blood 11/19/2024 9:15 AM CERTIFIED PEER SPECIALIST 11/19/2024 9:32 AM CERTIFIED PEER SPECIALIST Moise Flores MD LAB BLOOD ORDERABLES Fi nal Result [facility] ([place]) 1 [facility] [place] [address] * Comprehensive metabolic panel (11/19/2024 9:15 AM CERTIFIED PEER SPECIALIST) Pathologist [facility] Sodium 140 135 - 145 mmol/L Potassium, pl 4.6 3.3 - 4.9 mmol/L [facility] ([place] Chloride 104 97 - 110 mmol/L [facility] CO2 26 22 - 32 mmol/L [facility]) Anion gap 10 2 - 15 mmol/L [facility] ([place] BUN 22 6 - 25 mg/dL [facility] Creatinine 1.00 0.80 - 1.30 [...] classification and Diagnosis of Diabetes Diabetes Care 202; 46: S19-S40. Current interpretive data was last [...] [facility] Blood 11/19/2024 9:15 AM CERTIFIED PEER SPECIALIST 11/19/2024 9:32 AM CERTIFIED PEER SPECIALIST us Moise Flores MD LAB BLOOD ORDERABLES Fi nal Result [facility] ([place]) 1 [facility] [place] [address] * Hepatitis panel, acute Blood (10/10/2023 9:16 AM CERTIFIED PEER SPECIALIST) Hep A IgM Nonreactive Nonreactive [facility] ([place]) Comment: Interpretive Data: If Hep A IgM Ab is reported as Equivocal, a new sample should be drawn in two weeks for testing. Current interpretive data was last revised on 20. Testing performed by: [facility], [address] [place] [address]., [address] Hep B core IgM Nonreactive Nonreactive [facility] ([place]) Comment: Interpretive Data If HepB Core IgM Ab is reported as Equivocal, a new sample should be drawn in two weeks for testing. Current interpretive data was last revised on 20. Testing performed by: [facility], [address] [place] [address], [place]., [address] Hep C Ab Nonreactive Nonreactive [facility] ([place]) Comment: Interpretive Data Nonreactive: Antibodies to [...] last revised on 2020. Testing performed by: [address] [place] [address] HepBsAg Nonreactive Nonreactive [facility] ([place]) Comment:Testing performed by : [facility], [address] [place] [address], [place]., [address] Blood 10/10/2023 9:16 AM CERTIFIED PEER SPECIALIST 10/10/2023 1:48 PM CERTIFIED PEER SPECIALIST Jose Marroquin MD LAB MICROBIOLOGY - GENERAL O RDERABLES Final Result Performing Organization Address City/[facility]/ZIP Co de Phone Number [facility] ([place]) [address] [facility] [place] [address] * PSA screen (04/14/2023 6:30 AM CDT) PSA-Total <0.10 <=5.40 ng/mL [facility] ([place]) Comment: Interpretive Data AGE SEX [...] ([place]) - 04/14/2023 8:08 AM CDT Fasting Jose Marroquin MD LAB BLOOD ORDERABLES Final R esult Performing Organization Address City/[facility]/ZIP Co de Phone Number [facility] ([place]) 1 [facility] [place] [address] * COLONOSCOPY (12/18/2021 7:19 AM CERTIFIED PEER SPECIALIST) Anatomical Region Laterality Modality Other Narrative Procedure Note Leopoldo Cutler MD - 12/18/2021 7:19 AM CST [facility] Patient Name: Faustino Leija Procedure Date: 12/18/2021 7:19 AM Date of : 1955 Admit Type: Outpatient Age: 66 Gender: Male Attending MD: Leopoldo Cutler M.D. Room: [facility] ENDOSCOPY ROOM 1 Note Status: Finalized Patient [...] under direct vision. The Pediatric Colonoscope [id number] was introducedthrough the anus and advanced to [...] Electronically signed by Leopoldo Cutler M.D. Leopoldo Cutelr M.D. 12/18/2021 8:53:44 AM Number of Addenda: 0 Note Initiated On: 12/18/2021 7:19 AM Procedure Code(s): --- Professional --- 48655, Colonoscopy, flexible; with biopsy, single or multiple Diagnosis Code(s): --- Professional --- Z86.010, Personal history of colonic polyps K64.8, Other hemorrhoids K63.5, Polyp of colon K57.30, Diverticulosis of large intestine without perforation orabscess without bleeding CPT copyright 2019 [employer]. All rights reserved. The codes documented in this report are preliminary and upon leather goods assembler reviewmay be revised to meet current compliance requirements. Recognized by the [employer] for promoting quality in endoscopy Leopoldo Cutler MD ENDOSCOPY PROCEDURES Final Result from Last 3 Months or Most Recently Relevant to Health Maintenance Insurance [facility] MEDICARE MEDICARE AETNA SENIOR SUPPLEMENT AETNA HUMAN MEDICARE SUPPLEMENT MEDICARE AETNA MEDICARE [facility] MEDICARE SUPPLEMENT Advance Directives For more information, please contact: [phone] * Full Code (Latest Code Status on File) Date Activated Date Inactivated Comments 12/18/2021 7:21 AM 12/18/2021 1:45 PM * Full Code Date Activated Date Inactivated Comments 12/18/2021 7:20 AM 12/18/2021 7:21 AM * Full Code Date Activated Date Inactivated Comments 12/31/2020 10:03 AM 01/04/2021 6:05 PM Care Teams Sandwich Wrapper Relationship Specialty Start Date End Date Moise Flores MD [address] [facility] [address] [place] A [address] [address] PCP - General Family Medicine 04/27/24 Mario Banda MD [address] [facility] [address] [place] [address] Surgeon Orthopedic Surgery 04/27/24 Charles Reddy MD [address] [facility] [address] [place] [address] Consulting Physician Urology 04/27/24 Leopoldo Cutler MD [address] [facility] [address] [place] [address] Consulting Physician Gastroenterology 04/27/24 Shari Gaston MD [address] [place] [address] Referring Physician Dermatology 10/24/24
[2025-01-17 09:52] LABS: Prothrombin Time 13.6 Seconds (11.1-14.7)
[2025-01-17 09:53] LABS: Partial Thromboplastin Time 27.2 Seconds (22.3-36.8)
[2025-01-17 09:54] LABS: Anion Gap 10 mmol/L (4-12); Blood Urea Nitrogen 26 mg/dL (9-20); Calcium 9.1 mg/dL (8.4-10.2); Carbon Dioxide 22 mmol/L (22-30); Chloride 108 mmol/L (98-107); Estimated Glomerular Filt Rate > 60; Glucose 102 mg/dL (65-110); Potassium 3.9 mmol/L (3.4-5.0); Sodium 140 mmol/L (137-145)
== END 2025-01-17 08:43 | disposition home or self-care (01) ==
LOC: ANHSURGERY 08:48
PROVIDERS: Anesthesiology; PCP Family Medicine; Visit Provider Urology
DX: Z01.818 Encounter for other preprocedural examination (principal); I45.89 Other specified conduction disorders; I12.9 Hypertensive chronic kidney disease with stage 1 through stage 4 chronic kidney disease, or unspecified chronic kidney disease; N18.9 Chronic kidney disease, unspecified; E78.5 Hyperlipidemia, unspecified
CPT/HCPCS: 36415; 80048; 85610; 85730; 93005

== ENCOUNTER 2025-01-20 00:09 | Day surgery (SDC) | payer MEDICARE, SELFPAY ==
[2025-01-14 15:11] VITALS: BMI 30.2
--- NOTE | 2025-01-14 15:31 | PC.NURSE ---
Report to the Outpatient Waiting Room, entrance under the green pavilion located off [facility], at time ___0900am____ on date _01/20/25 . Planned Procedure Time: _1100am .? Time changes happen often and if your time is changed the preop area will call you the afternoon before. - You and your visitor will be asked to self-screen and do not enter if you have any COVID symptoms. Please call surgeon if you need to reschedule. - A mask is optional within the hospital at this time. Patients may have clear liquids (water, carbonated beverages, clear teas, apple juice) until 3 hours prior to surgery with a maximum of 20 ounces. - No food from midnight until time of surgery and no smoking, or chewing tobacco (or any form of nicotine). No chewing gum, candy or mints. (0800am) Take only the following medications with a SIP of water on the morning of surgery: __Levothyroxine, Amlodipine DO NOT STOP ANY OF YOUR OTHER PRESCRIPTION MEDICATIONS PRIOR TO SURGERY EXCEPT THE FOLLOWING Hold all vitamins and supplements for 3 days per anesthesiologist. Date to take last dose__01/16/25 Medications to discontinue per physician ____HOLD Aspirin for [address] Reddy Date to take last dose 01/11/25 Please no make-up, nail mohawk, hairspray, perfume, deodorant, or body powder the day of surgery.? No jewelry (including any body piercings) or valuables the day of surgery, leave them at home.? Please take a shower or bath the night before, or the morning of, surgery with an antibacterial soap.? Wear comfortable, loose fitting clothing.? - Jewelry must be removed prior to entering the operating room.? Rings and piercings that are not removed may be cut off. - The hospital will not accept responsibility for valuables.? - Please leave all valuables, including medications, at home the day of surgery. If you are going home after surgery, a licensed funeral limousine driver must drive you home.? - NO public transportation without another adult if you receive anesthesia. - We recommend that an adult stay with you for 24 hours following discharge. - We also recommend that you do not drive, make important decision, drink alcoholic beverages, or take any drugs that were not prescribed by your health care provider for at least 24 hours after your discharge time. Follow any additional instructions given to you from your surgeon. Telephone instructions given to ___Patient and asked if any additional questions and then verbalized understanding. Patient advised to call surgeon office or pre surgery nurse liaison [phone] if any additional questions.
[2025-01-20] VITALS (8 sets, daily range): BP systolic 124–145; BP diastolic 75–87; PULSE 53–70; RESP 12–16; TEMP 36.2–36.3; O2SAT 97–100
--- NOTE | ~2025-01-20 | XR_ITS ---
EXAMINATION: XR abdomen/kub 1V DATE: 01/20/2025 06:44 INDICATION: Kidney stone. TECHNIQUE: A supine view of the abdomen on 2 radiographs was obtained. COMPARISON: CT abdomen and pelvis 01/11/2025 FINDINGS: There are no dilated loops of bowel. The kidneys are obscured by bowel. There is a 4 mm sto ne in distal left ureter. IMPRESSION: 1. 4 mm stone in distal left ureter. Reviewed, dictated and finalized at location A.
--- NOTE | ~2025-01-20 | CT_ITS ---
EXAMINATION: CT abdomen pelvis wo con DATE: 01/20/2025 07:07 INDICATION: Renal stone. TECHNIQUE: Computed tomography (CT) of the abdomen and pelvis was performed without intravenous contr ast. Automated exposure control and iterative reconstruction technique were employed. The dose-length product was 460.08 mGy-cm. COMPARISON: CT abdomen and pelvis 01/11/2025 FINDINGS: The visualized portions of the lung bases demonstrate mild atelectasis. No pleural effusion . The heart size is normal. There are coronary artery calcifications. No pericardial effusion. The li joseph, gallbladder, spleen, pancreas, adrenal glands are normal. There is bilateral medullary nephrocal cinosis. There are cysts in the kidneys including peripelvic cysts measuring up to 3.5 cm on the left . There is a 4 mm stone in distal left ureter. There is diverticulosis of the colon without evidence of diverticulitis. The appendix is not visualized. There are no pathologically enlarged lymph nodes. There is no free intraperitoneal fluid. There is moderate lumbar spondylosis. There is mild chronic a nterior wedging of multiple thoracic vertebral bodies. There are chronic bilateral L3 pars defects. IMPRESSION: 1. 4 mm stone in distal left ureter. No hydronephrosis. 2. Bilateral medullary nephrocalcinosis. Reviewed, dictated and finalized at location A.
--- NOTE | ~2025-01-20 | XR_ITS ---
XR fluoroscopy no charge Indication: Left stone extraction TECHNIQUE: Fluoroscopy used during Left stone extraction performed by [Charles Reddy MD] on 01/20/2025. 13 seconds of fluoroscopy. with 5 fluoroscopic images captured. FINDINGS: Correlate with procedure note. IMPRESSION: Fluoroscopy used during Left stone extraction. Reviewed, dictated and finalized at location A.
--- OUTSIDE RECORDS SUMMARY | 2025-01-20 00:12 | XMS_ITS | Clinical Summary ---
Author Organization [facility] Address [address] [place] [address] Care Team Providers Care Photocopying Machine Operator Name Role Phone Moise Flores MD Primary Care Provider Mario Banda MD Unavailable [phone] Charles Reddy MD Unavailable [phone] Leopoldo Cutler MD Unavailable [phone] Shari Gaston MD Unavailable [phone] Allergies No known active allergies Medications [...] (Nausea and abdominal cramps) Collaborating physician Rashaad Maeir MD 20 tablet Active Additional Information Patient [...] 1 tablet (25 mcg total) by mouth shop director before breakfast 90 tablet 3 Active benazepriL [...] 11/25/2024 Assessment & Plan (11/25/2024 9:34 AM LABORER/KEY MAN): - last colonoscopy 2021, repeat in 3-5 years, he has opted to repeat in 5 years per patient Basal cell carcinoma (BCC) of skin of nose 10/24 Assessment & Plan (11/25/2024 9:37 AM LABORER/KEY MAN): - recent diagnosis from dermatology by Dr. Gaston - scheduled for Mohs surgery on 02/2025 Primary osteoarthritis of right knee 04/27/2024 Overview (11/25/2024): Follows with orthopedics Assessment & Plan (11/25/2024 9:26 AM LABORER/KEY MAN): - chronic, recurring condition, not at goal [...] weeks. Assessment & Plan (11/25/2024 9:30 AM LABORER/KEY MAN): - hx of anemia, not present now [...] with results as shown below - has orse on iron supplementation in the past - [...] year. Assessment & Plan (09/12/2022 1:55 PM LABORER/KEY MAN): Hemoglobin and ferritin normalized after iron supplementation [...] 09/06/2021 Assessment & Plan (11/25/2024 9:29 AM LABORER/KEY MAN): - chronic condition, waxes and wanes - [...] 03/06/2022 Assessment & Plan (12/20/2023 10:37 AM LABORER/KEY MAN): Patient should reduce sugar and carbs, increase exercise, maintain proper body weight, and will check an A1c once or twice yearly. Assessment & Plan (04/15/2023 3:26 PM CDT): Patient should reduce sugar and carbs, increase exercise, maintain proper body weight, and will check an A1c once or twice yearly. Assessment & Plan (09/12/2022 1:54 PM LABORER/KEY MAN): Patient should reduce sugar and carbs, increase exercise, maintain proper body weight, and will check an A1c once or twice yearly. Assessment & Plan (03/11/2022 1:39 PM CDT): Patient should reduce sugar and carbs, increase exercise, maintain proper body weight, and will check an A1c once or twice yearly. Assessment & Plan (11/07/2021 10:21 AM LABORER/KEY MAN): Patient should reduce sugar and carbs, increase exercise, maintain proper body weight, and will check an A1c once or twice yearly. Assessment & Plan (09/06/2021 9:28 AM LABORER/KEY MAN): Patient should reduce sugar and carbs, increase [...] feet and calves, no significant pain - alf - 10 years or more - has [...] - was seeing pain management at [facility] - eventually became bed ridden - [...] 12/31/2020 Assessment & Plan (11/25/2024 9:23 AM LABORER/KEY MAN): - chronic condition, stable status - Patient [...] 10/10/2023 Assessment & Plan (12/20/2023 10:36 AM LABORER/KEY MAN): Patient is asymptomatic on current dose of levothyroxine and TSH free T4 are normal and we will repeat levels before next visit. Assessment & Plan (04/15/2023 3:25 PM CDT): Patient is asymptomatic on current dose of levothyroxine and TSH free T4 are normal and we will repeat levels before next visit. Assessment & Plan (09/12/2022 1:55 PM LABORER/KEY MAN): Patient is asymptomatic on current dose of levothyroxine and TSH free T4 are normal and we will repeat levels before next visit. Assessment & Plan (03/11/2022 1:38 PM CDT): Patient is asymptomatic on current dose of levothyroxine and TSH free T4 are normal and we will repeat levels before next visit. Assessment & Plan (11/07/2021 10:20 AM LABORER/KEY MAN): Continue current dose of levothyroxine check levels before next visit. Assessment & Plan (09/06/2021 9:26 AM LABORER/KEY MAN): Patient is asymptomatic on current dose of levothyroxine and TSH free T4 are normal and we will repeat levels before next visit. Assessment & Plan (03/01/2021 3:55 PM CDT): Continue current dose of levothyroxine and check levels before next visit. Essential hypertension 12/31/2020 Overview (11/07/2021): Significant swelling on amlodipine Assessment & Plan (11/25/2024 9:39 AM LABORER/KEY MAN): Blood Pressure Management BP Readings from Last [...] 10/10/2023 Assessment & Plan (12/20/2023 10:37 AM LABORER/KEY MAN): Blood pressure well controlled on amlodipine, benazepril Assessment & Plan (04/15/2023 3:26 PM CDT): Blood pressure well controlled on amlodipine, benazepril Assessment & Plan (09/12/2022 1:55 PM LABORER/KEY MAN): Well controlled on the current regimen. Avoidance of salt, proper body weight, and routine exercise recommended. Assessment & Plan (03/11/2022 1:38 PM CDT): Well controlled on the current regimen. Avoidance of salt, proper body weight, and routine exercise recommended. Assessment & Plan (11/07/2021 10:20 AM LABORER/KEY MAN): Edema resolved with discontinuation of amlodipine. Blood pressure well controlled on benazepril 40 mg daily. Check metabolic panel again before next visit. Assessment & Plan (09/06/2021 9:28 AM LABORER/KEY MAN): Blood pressure close to goal but his [...] months Assessment & Plan (11/25/2024 9:28 AM LABORER/KEY MAN): - S/p prostatectomy 08/2018, Followed by Dr [...] 05/07/2016 Assessment & Plan (11/25/2024 9:27 AM LABORER/KEY MAN): - chronic condition, stable status - currently [...] 11/03/2015 Assessment & Plan (11/25/2024 9:27 AM LABORER/KEY MAN): - chronic condition - status: is adequately [...] 10/10/2023 Assessment & Plan (12/20/2023 10:37 AM LABORER/KEY MAN): Well controlled on current therapy and will check a lipid panel and LFTs in 6 months. Assessment & Plan (04/15/2023 3:26 PM CDT): Well controlled on current therapy and will check a lipid panel and LFTs in 6 months. Diet and exercise for elevated triglycerides. Assessment & Plan (09/12/2022 1:54 PM LABORER/KEY MAN): Well controlled on current therapy and will check a lipid panel and LFTs in 6 months. Assessment & Plan (03/11/2022 1:39 PM CDT): Well controlled on current therapy and will check a lipid panel and LFTs in 6 months. Assessment & Plan (11/07/2021 10:21 AM LABORER/KEY MAN): Continue his atorvastatin check lipids and LFTs before next visit. Assessment & Plan (09/06/2021 9:27 AM LABORER/KEY MAN): Well controlled on current therapy and will [...] 09/12/202204/27 Assessment & Plan (09/12/2022 1:55 PM LABORER/KEY MAN): Most likely related to his episode of [...] 04/27/2024 Assessment & Plan (11/07/2021 10:21 AM LABORER/KEY MAN): Resolved with resolution of his peripheral edema. Assessment & Plan (09/06/2021 9:28 AM LABORER/KEY MAN): Hold call bilateral lower extremity venous Doppler [...] prevention, proper nutrition, and suggested joining [facility] to accomplish most of these goals. [...] fall prevention, proper nutrition, and suggested joining [facility] to accomplish most of these goals. [...] 11/25/2024 Assessment & Plan (09/06/2021 9:26 AM LABORER/KEY MAN): I amsuspecting his lower extremity crampy pain with activities his due to his lumbar degenerative disc disease. He may need to follow-up with neurosurgeon eventually. Insomnia secondary to chronic pain 12/01/2020 04/27/2024 Encounters Date Type Department Care Team Description 01/11/2025 Orders Only [facility] Health Information Management [address] [place] [address] Moise Flores MD 01/07/2025 8:26 AM CDT - 01/07/2025 11:59 PM CDT Hospital Encounter [facility] Orthopedics and Sports Medicine [address] [place] [address] [address] [place] [address] Discharge Disposition: Discharge to home or self care 01/07/2025 8:15 AM CDT Office Visit [facility] Orthopedics and Sports Medicine [address] [place] [address] [address] [place] [address] Patricia Alfaro NP Primary osteoarthritis of right knee (Primary Dx) 01/05/2025 JOSÉ MIGUEL ED Outreach [facility] Accountable Care Organization [address] [place] [address] Artemio Rodriguez MA 01/02/2025 5:04 PM CDT - 01/02/2025 7:36 PM CDT Emergency [facility] Emergency Department [address] [place] [id number] Renal colic on left side (Primary Dx) Discharge Disposition: Discharge to home or self care 11/25/2024 9:00 AM LABORER/KEY MAN Office Visit [facility] Primary Care at [address] [address] Moise Flores MD Medicare annual wellness visit, subsequent (Primary Dx); Acquired hypothyroidism; Basal cell carcinoma (BCC) of skin of nose; Mixed hyperlipidemia; Gastroesophageal reflux disease, unspecified whether esophagitis present; Essential hypertension; Primary osteoarthritis of right knee; History of prostate cancer; Impaired fasting glucose; History of anemia; History of colon polyps 11/19/2024 9:00 AM LABORER/KEY MAN Lab [address] [address] Acquired hypothyroidism; Anemia, unspecified type; Impaired fasting [...] on file Legal Sex Male 11:59 AM LABORER/KEY MAN Gender Identity Male 12/07/2021 1:13 PM LABORER/KEY MAN Sexual Orientation Not on file Obstetrics History [...] Routine 11/22/2024 EGFR Routine 11/19/2024 9:15 AM LABORER/KEY MAN Mixed hyperlipidemia DIFFERENTIAL AUTO Routine 11/19/2024 9:1 5 AM LABORER/KEY MAN Anemia, unspecified type COMPREHENSIVE METABOLIC PANEL Routine 11/19/2024 9:15 AM LABORER/KEY MAN Mixed hyperlipidemia HEMOGLOBIN A1C Routine 11/19/2024 9:15 AM LABORER/KEY MAN Impaired fasting glucose IRON PROFILE W/ IBC Routine 11/19/2024 9 :15 AM LABORER/KEY MAN Anemia, unspecified type FERRITIN Routine 11/19/2024 9:15 AM LABORER/KEY MAN Anemia, unspecified type CBC WITH AUTO DIFFERENTIAL Routine 11/19/2024 9:15 AM LABORER/KEY MAN Anemia, unspecified type THYROID FUNCTION CASCADE Routine 11/19/2024 9:15 AM LABORER/KEY MAN Acquired hypothyroidism HEPATITIS PANEL, ACUTE Routine 10/10/2023 9:16 AM LABORER/KEY MAN Encounter for hepatitis C screening test for low risk patient PSA SCREEN Routine 04/14/2023 6:30 AM CDT Screening PSA (prostate specific antigen) COLONOSCOPY 12/18/2021 7:19 AM LABORER/KEY MAN from Last 3 Months or Most Recently [...] with no immediate complications us Patricia Alfaro PLATE ROLLER IN CLINIC/BEDSIDE ORDER VALENTINE Final Result * [...] Bola Abdul M.D. RB: DALTON Report ID: [id number] Reading Location: [id number] Procedure Note Bola Abdul MD - 01/02/2025 [...] Bola Abdul M.D. RB: DALTON Report ID: [id number] Reading Location: [place] [address] PROCEDURES Final Resu [...] BLOOD ORDERABLES Final R esult [facility] [place] 1 [facility] Department [place] [address] * Differential, auto (01/02/2025 4:56 [...] MD LAB BLOOD ORDERABLES Final R esult [facility] ([place]) 1 [facility] Department [place] [address] * CBC with auto differential (01/02/2025 4:56 [...] Final R esult [facility] ([place] 1 [facility] [place] [address] * Lipase (01/02/2025 4:56 PM CDT) Lipase 26 10 - 99 Units/L Blood Venous blood specimen / Unknown 01/02/2025 4:56 PM CDT 01/02/2025 5:00 PM CDT us Ellis Jang MD LAB BLOOD ORDERABLES Final R esult [facility] ([place] 1 [facility] [place] [address] * (ABNORMAL) Comprehensive metabolic panel (01/02/2025 4:56 [...] BLOOD ORDERABLES Final R esult [facility] ([place]) 1 [facility] [place] [address] * Diabetic Eye Exam (11/22/2024) us Generic External Data Provider HEALTH MAINTENANC E Final Result * eGFR (11/19/2024 9:15 AM LABORER/KEY MAN) eGFR 81 >=60 mL/min/1. 73 m2 Comment: [...] last reviewed 2021. Blood 11/19/2024 9:15 AM LABORER/KEY MAN 11/19/2024 9:32 AM LABORER/KEY MAN us Moise Flores MD LAB BLOOD ORDERABLES Fi nal Result [facility] ([place] 1 [facility] [place] [address] * Differential, auto (11/19/2024 9:15 AM LABORER/KEY MAN) Neutrophil abs 3.1 1.5 - 6.5 K/cumm [...] revised on 2018. Blood 11/19/2024 9:15 AM LABORER/KEY MAN 11/19/2024 9:32 AM LABORER/KEY MAN Moise Flores MD LAB BLOOD ORDERABLES Fi nal Result Performing Organization Address City/[facility] Co de Phone Number [facility] ([place] 1 [facility] [place] [address] * Thyroid Function [place] (11/19/2024 9:15 AM LABORER/KEY MAN) Pathologist [facility] TSH 1.51 0.30 - 4.20 mcIUnit/mL Blood 11/19/2024 9:15 AM LABORER/KEY MAN 11/19/2024 9:32 AM LABORER/KEY MAN Moise Flores MD LAB BLOOD ORDERABLES nal Result Performing Organization Address [facility] de Phone Number [facility] ([place]) 1 [facility] [place] [address] * (ABNORMAL) Iron profile w/ IBC (11/19/2024 9:15 AM LABORER/KEY MAN) [facility] Iron 93 50 - 150 mcg/dL TIBC 434(H) 250 - 400 mcg/dL [facility] ([place]) Transferrin saturation 21 20 - 50 % [facility] ([place]) Blood 11/19/2024 9:15 AM LABORER/KEY MAN 11/19/2024 9:32 AM LABORER/KEY MAN Moise Flores MD LAB BLOOD ORDERABLES nal Result Performing Organization Address [facility] Co de Phone Number [facility] ([place]) 1 [facility] [place] [address] * (ABNORMAL) CBC with auto differential (11/19/2024 9:15 AM LABORER/KEY MAN) [facility] WBC 5.7 3.8 - 9.9 K/cumm Hgb [...] [facility] ([place]) Blood 11/19/2024 9:15 AM LABORER/KEY MAN 11/19/2024 9:32 AM LABORER/KEY MAN Moise Flores MD LAB BLOOD ORDERABLES Fi nal Result [facility] ([place]) 1 [facility] [employer] [place], [place] [id number] * Hemoglobin A1c (11/19/2024 9:15 AM LABORER/KEY MAN) Hgb A1C 5.6 4.0 - 5.6 % Estimated Average Glucose 114 mg/dL [facility] ([place]) Comment: The ADA recommends reporting an estimated Average Glucose (eAG) with all Hemoglobin A1c results using the equation derived from a study of 507 normal and diabetic adults. Minority populations were underrepresented and children were not included. (Diabetes Care 31:9336-5935, 2008). The eAG is not equivalent to a fasting glucose. Blood 11/19/2024 9:15 AM LABORER/KEY MAN 11/19/2024 9:32 AM LABORER/KEY MAN Moise Flores MD LAB BLOOD ORDERABLES Fi nal Result [facility] ([place] 1 [facility] [place] [address] * (ABNORMAL) Ferritin (11/19/2024 9:15 AM LABORER/KEY MAN) Ferritin 15(L) 30 - 400 ng/mL Blood 11/19/2024 9:15 AM LABORER/KEY MAN 11/19/2024 9:32 AM LABORER/KEY MAN Moise Flores MD LAB BLOOD ORDERABLES Fi nal Result [facility] ([place]) 1 [facility] Department [place] [address] * Comprehensive metabolic panel (11/19/2024 9:15 AM LABORER/KEY MAN) Pathologist [facility] Sodium 140 135 - 145 mmol/L Potassium, pl 4.6 3.3 - 4.9 mmol/L [facility] Chloride 104 97 - 110 mmol/L [facility] ([place] CO2 26 22 - 32 mmol/L [facility] ([place]) Anion gap 10 2 - 15 mmol/L [facility] ([place]) BUN 22 6 - 25 mg/dL [facility] Creatinine 1.00 0.80 [...] [facility] ([place]) Blood 11/19/2024 9:15 AM LABORER/KEY MAN 11/19/2024 9:32 AM LABORER/KEY MAN us Moise Flores MD LAB BLOOD ORDERABLES Fi nal Result [facility] ([place] 1 [facility] Department [place] [address] * Hepatitis panel, acute Blood (10/10/2023 9:16 AM LABORER/KEY MAN) Hep A IgM Nonreactive Nonreactive [facility] ([place]) Comment: Interpretive Data: If Hep A IgM Ab is reported as Equivocal, a new sample should be drawn in two weeks for testing. Current interpretive data was last revised on 20. Testing performed by: [facility], [address] [place] [address]., [address] Hep B core IgM Nonreactive Nonreactive [facility] ([place]) Comment: Interpretive Data If HepB Core IgM Ab is reported as Equivocal, a new sample should be drawn in two weeks for testing. Current interpretive data was last revised on 20. Testing performed by: [facility], [address] [place] [address], [place]., [address] Hep C Ab Nonreactive Nonreactive [facility] [...] last revised on 2020. Testing performed by: [address] [place]., [address] HepBsAg Nonreactive Nonreactive [facility] ([place]) Comment:Testing performed by : [facility], [address] [place] [address], [place]., [address] Blood 10/10/2023 9:16 AM LABORER/KEY MAN 10/10/2023 1:48 PM LABORER/KEY MAN Jose Marroquin MD LAB MICROBIOLOGY - GENERAL O RDERABLES Final Result Performing Organization Address City/[facility]/ZIP Co de Phone Number [facility] ([place]) 1 [facility] [place] [address] * PSA screen (04/14/2023 6:30 AM CDT) [...] AM CDT 04/14/2023 7:26 AM CDT Narrative [facility] ([place]) - 04/14/2023 8:08 AM CDT Fasting Jose Marroquin MD LAB BLOOD ORDERABLES Final R esult Performing Organization Address City/[facility]/ZIP Co de Phone Number [facility] ([place]) 1 [facility] [place] [address] * COLONOSCOPY (12/18/2021 7:19 AM LABORER/KEY MAN) Anatomical Region Laterality Modality Other Narrative Procedure Note Leopoldo Cutler MD - 12/18/2021 7:19 AM CST [facility] Patient Name: Faustino Leija Procedure Date: 12/18/2021 7:19 AM Date of : 1955 Admit Type: Outpatient Age: 66 Gender: Male Attending MD: Leopoldo Cutler M.D. Room: [facility] ENDOSCOPY ROOM 1 Note Status: Finalized [...] under direct vision. The Pediatric Colonoscope [id number]-H190L [id number] was introducedthrough the anus and advanced to [...] 7:19 AM Procedure Code(s): --- Professional --- 05656, Colonoscopy, flexible; with biopsy, single or multiple Diagnosis Code(s): --- Professional --- Z86.010, Personal history of colonic polyps K64.8, Other hemorrhoids K63.5, Polyp of colon K57.30, Diverticulosis of large intestine without perforation orabscess without bleeding CPT copyright 2019 [employer]. All rights reserved. The codes documented in this report are preliminary and upon systems planner reviewmay be revised to meet current compliance requirements. Recognized by the [place] [employer] for promoting quality in endoscopy Leopoldo Cutler MD ENDOSCOPY PROCEDURES Final Result from Last 3 Months or Most Recently Relevant to Health Maintenance Insurance [employer] MEDICARE MEDICARE AETNA SENIOR SUPPLEMENT AETNA HUMAN MEDICARE SUPPLEMENT MEDICARE AETNA MEDICARE [facility] MEDICARE SUPPLEMENT Advance Directives For more information, please contact: [phone] * Full Code (Latest Code Status on File) Date Activated Date Inactivated Comments 12/18/2021 7:21 AM 12/18/2021 1:45 PM * Full Code Date Activated Date Inactivated Comments 12/18/2021 7:20 AM 12/18/2021 7:21 AM * Full Code Date Activated Date Inactivated Comments 12/31/2020 10:03 AM 01/04/2021 6:05 PM Care Teams Photocopying Machine Operator Relationship Specialty Start Date End Date Moise Flores MD [address] [facility] [address] [place] [address] [address] PCP - General Family Medicine 04/27/24 Mario Banda MD [address] [facility] [address] [place] [address] Surgeon Orthopedic Surgery 04/27/24 Charles Reddy MD [address] [facility] [address] [place] [address] Consulting Physician Urology 04/27/24 Leopoldo Cutler MD [address] [facility] [address] [place] [address] Consulting Physician Gastroenterology 04/27/24 Shari Gaston MD [address] [place] [address] Referring Physician Dermatology 10/24/24
--- OUTSIDE RECORDS SUMMARY | 2025-01-20 00:12 | XMS_ITS | Referral Summary ---
Author Organization [facility] Address [address] [place] [address] Care Team Providers Care Entry Level Financial Analyst Name Role Phone Moise Flores MD Primary Care Provider Mario Banda MD Unavailable [phone] Charles Reddy MD Unavailable [phone] Leopoldo Cutler MD Unavailable [phone] Shari Gaston MD Unavailable [phone] Encounters Date Type Department Care Team Description 01/11/2025 Orders Only [facility] Health Information Management [address] [place] [address] Moise Flores MD 01/07/2025 8:26 AM CDT - 01/07/2025 11:59 PM CDT Hospital Encounter [facility]oped[facility] Sports Medicine [address] [facility] [address] [phone] Discharge Disposition: Discharge to home or self care 01/07/2025 8:15 AM CDT Office Visit [facility] [address] [facility] [address] [place] [phone] Patricia Alfaro NP Primary osteoarthritis of right knee (Primary Dx) 01/05/2025 [facility] ED Outreach [facility] Care [facility] [address] [place] [address] Artemio Rodriguez MA 01/02/2025 5:04 PM CDT - 01/02/2025 7:36 PM CDT Emergency [facility] Emergency Department [address] [place] [address] Renal colic on left side (Primary Dx) Discharge Disposition: Discharge to home or self care 11/25/2024 9:00 AM RISK CONTROL PRODUCT LIABILITY DIRECTOR Office Visit [facility] Medical [facility] Primary Care at [address] [phone] Moise Flores MD Medicare annual wellness visit, subsequent (Primary Dx); Acquired hypothyroidism; Basal cell carcinoma (BCC) of skin of nose; Mixed hyperlipidemia; Gastroesophageal reflux disease, unspecified whether esophagitis present; Essential hypertension; Primary osteoarthritis of right knee; History of prostate cancer; Impaired fasting glucose; History of anemia; History of colon polyps 11/19/2024 9:00 AM RISK CONTROL PRODUCT LIABILITY DIRECTOR Lab [address] [address] Acquired hypothyroidism; Anemia, unspecified type; Impaired fasting [...] ketorolac alone. Take with food. 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 Gaston - scheduled for Mohs surgery on 02/2025 Primary osteoarthritis of right knee 04/27/2024 Overview (11/25/2024): Follows with orthopedics Assessment & Plan (11/25/2024 9:26 AM RISK CONTROL PRODUCT LIABILITY DIRECTOR): - chronic, recurring condition, not at goal [...] weeks. Assessment & Plan (11/25/2024 9:30 AM RISK CONTROL PRODUCT LIABILITY DIRECTOR): - hx of anemia, not present now [...] year. Assessment & Plan (09/12/2022 1:55 PM RISK CONTROL PRODUCT LIABILITY DIRECTOR): Hemoglobin and ferritin normalized after iron supplementation [...] 09/06/2021 Assessment & Plan (11/25/2024 9:29 AM RISK CONTROL PRODUCT LIABILITY DIRECTOR): - chronic condition, waxes and wanes - [...] 03/06/2022 Assessment & Plan (12/20/2023 10:37 AM RISK CONTROL PRODUCT LIABILITY DIRECTOR): Patient should reduce sugar and carbs, increase exercise, maintain proper body weight, and will check an A1c once or twice yearly. Assessment & Plan (04/15/2023 3:26 PM CDT): Patient should reduce sugar and carbs, increase exercise, maintain proper body weight, and will check an A1c once or twice yearly. Assessment & Plan (09/12/2022 1:54 PM RISK CONTROL PRODUCT LIABILITY DIRECTOR): Patient should reduce sugar and carbs, increase exercise, maintain proper body weight, and will check an A1c once or twice yearly. Assessment & Plan (03/11/2022 1:39 PM CDT): Patient should reduce sugar and carbs, increase exercise, maintain proper body weight, and will check an A1c once or twice yearly. Assessment & Plan (11/07/2021 10:21 AM RISK CONTROL PRODUCT LIABILITY DIRECTOR): Patient should reduce sugar and carbs, increase exercise, maintain proper body weight, and will check an A1c once or twice yearly. 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 Assessment & Plan (04/15/2023 3:25 PM CDT): Patient is asymptomatic on current dose of levothyroxine and TSH free T4 are normal and we will repeat levels before next visit. Assessment & Plan (09/12/2022 1:55 PM RISK CONTROL PRODUCT LIABILITY DIRECTOR): Patient is asymptomatic on current dose of levothyroxine and TSH free T4 are normal and we will repeat levels before next visit. Assessment & Plan (03/11/2022 1:38 PM CDT): Patient is asymptomatic on current dose of levothyroxine and TSH free T4 are normal and we will repeat levels before next visit. Assessment & Plan (11/07/2021 10:20 AM RISK CONTROL PRODUCT LIABILITY DIRECTOR): Continue current dose of levothyroxine check levels before next visit. Assessment & Plan (09/06/2021 9:26 AM RISK CONTROL PRODUCT LIABILITY DIRECTOR): Patient is asymptomatic on current dose of levothyroxine and TSH free T4 are normal and we will repeat levels before next visit. Assessment & Plan (03/01/2021 3:55 PM CDT): Continue current dose of levothyroxine and check levels before next visit. Essential hypertension 12/31/2020 Overview (11/07/2021): Significant swelling on amlodipine Assessment & Plan (11/25/2024 9:39 AM RISK CONTROL PRODUCT LIABILITY DIRECTOR): Blood Pressure Management BP Readings from Last [...] 10/10/2023 Assessment & Plan (12/20/2023 10:37 AM RISK CONTROL PRODUCT LIABILITY DIRECTOR): Blood pressure well controlled on amlodipine, benazepril Assessment & Plan (04/15/2023 3:26 PM CDT): Blood pressure well controlled on amlodipine, benazepril Assessment & Plan (09/12/2022 1:55 PM RISK CONTROL PRODUCT LIABILITY DIRECTOR): Well controlled on the current regimen. Avoidance of salt, proper body weight, and routine exercise recommended. Assessment & Plan (03/11/2022 1:38 PM CDT): Well controlled on the current regimen. Avoidance of salt, proper body weight, and routine exercise recommended. Assessment & Plan (11/07/2021 10:20 AM RISK CONTROL PRODUCT LIABILITY DIRECTOR): Edema resolved with discontinuation of amlodipine. Blood pressure well controlled on benazepril 40 mg daily. Check metabolic panel again before next visit. Assessment & Plan (09/06/2021 9:28 AM RISK CONTROL PRODUCT LIABILITY DIRECTOR): Blood pressure close to goal but his [...] months Assessment & Plan (11/25/2024 9:28 AM RISK CONTROL PRODUCT LIABILITY DIRECTOR): - S/p prostatectomy 08/2018, Followed by Dr [...] 05/07/2016 Assessment & Plan (11/25/2024 9:27 AM RISK CONTROL PRODUCT LIABILITY DIRECTOR): - chronic condition, stable status - currently [...] 11/03/2015 Assessment & Plan (11/25/2024 9:27 AM RISK CONTROL PRODUCT LIABILITY DIRECTOR): - chronic condition - status: is adequately [...] 10/10/2023 Assessment & Plan (12/20/2023 10:37 AM RISK CONTROL PRODUCT LIABILITY DIRECTOR): Well controlled on current therapy and will check a lipid panel and LFTs in 6 months. Assessment & Plan (04/15/2023 3:26 PM CDT): Well controlled on current therapy and will check a lipid panel and LFTs in 6 months. Diet and exercise for elevated triglycerides. Assessment & Plan (09/12/2022 1:54 PM RISK CONTROL PRODUCT LIABILITY DIRECTOR): Well controlled on current therapy and will check a lipid panel and LFTs in 6 months. Assessment & Plan (03/11/2022 1:39 PM CDT): Well controlled on current therapy and will check a lipid panel and LFTs in 6 months. Assessment & Plan (11/07/2021 10:21 AM RISK CONTROL PRODUCT LIABILITY DIRECTOR): Continue his atorvastatin check lipids and LFTs before next visit. Assessment & Plan (09/06/2021 9:27 AM RISK CONTROL PRODUCT LIABILITY DIRECTOR): Well controlled on current therapy and will [...] 09/12/202204/27 Assessment & Plan (09/12/2022 1:55 PM RISK CONTROL PRODUCT LIABILITY DIRECTOR): Most likely related to his episode of [...] 04/27/2024 Assessment & Plan (11/07/2021 10:21 AM RISK CONTROL PRODUCT LIABILITY DIRECTOR): Resolved with resolution of his peripheral edema. Assessment & Plan (09/06/2021 9:28 AM RISK CONTROL PRODUCT LIABILITY DIRECTOR): Hold call bilateral lower extremity venous Doppler [...] 11/25/2024 Assessment & Plan (09/06/2021 9:26 AM RISK CONTROL PRODUCT LIABILITY DIRECTOR): I amsuspecting his lower extremity crampy pain [...] on file Legal Sex Male 11:59 AM RISK CONTROL PRODUCT LIABILITY DIRECTOR Gender Identity Male 12/07/2021 1:13 PM RISK CONTROL PRODUCT LIABILITY DIRECTOR Sexual Orientation Not on file Last Filed [...] CDT Primary osteoarthritis of right knee CT ARTHROCENTESIS ASPIR&/INJ MAJOR JT/BURSA W/O US Routine [...] Routine 11/22/2024 EGFR Routine 11/19/2024 9:15 AM RISK CONTROL PRODUCT LIABILITY DIRECTOR Mixed hyperlipidemia DIFFERENTIAL AUTO Routine 11/19/2024 9:1 5 AM RISK CONTROL PRODUCT LIABILITY DIRECTOR Anemia, unspecified type COMPREHENSIVE METABOLIC PANEL Routine 11/19/2024 9:15 AM RISK CONTROL PRODUCT LIABILITY DIRECTOR Mixed hyperlipidemia HEMOGLOBIN A1C Routine 11/19/2024 9:15 AM RISK CONTROL PRODUCT LIABILITY DIRECTOR Impaired fasting glucose IRON PROFILE W/ IBC Routine 11/19/2024 9 :15 AM RISK CONTROL PRODUCT LIABILITY DIRECTOR Anemia, unspecified type FERRITIN Routine 11/19/2024 9:15 AM RISK CONTROL PRODUCT LIABILITY DIRECTOR Anemia, unspecified type CBC WITH AUTO DIFFERENTIAL Routine 11/19/2024 9:15 AM RISK CONTROL PRODUCT LIABILITY DIRECTOR Anemia, unspecified type THYROID FUNCTION CASCADE Routine 11/19/2024 9:15 AM RISK CONTROL PRODUCT LIABILITY DIRECTOR Acquired hypothyroidism HEPATITIS PANEL, ACUTE Routine 10/10/2023 9:16 AM RISK CONTROL PRODUCT LIABILITY DIRECTOR Encounter for hepatitis C screening test for low risk patient PSA SCREEN Routine 04/14/2023 6:30 AM CDT Screening PSA (prostate specific antigen) COLONOSCOPY 12/18/2021 7:19 AM RISK CONTROL PRODUCT LIABILITY DIRECTOR from Last 3 Months or Most Recently [...] and diminished joint space. us Patricia Alfaro GLUE SPECIALTY SUPERVISOR IMG XR PROCEDURES Final Result * CT ARTHROCENTESIS ASPIR&/INJ MAJOR JT/BURSA W/O US (01/07/2025 [...] with no immediate complications us Patricia Alfaro GLUE SPECIALTY SUPERVISOR IN CLINIC/BEDSIDE ORDER VALENTINE Final Result * [...] Bola Abdul M.D. RB: DALTON Report ID: [id number] Reading Location: [id number] Procedure Note Bola Abdul MD - 01/02/2025 [...] Bola Abdul M.D. RB: DALTON Report ID: [id number] Reading Location: [id number] us David DOYLE IMG CT PROCEDURES Final [...] LAB BLOOD ORDERABLES Final R esult [facility] [address] [facility] Department of Laboratories [place], [place] [id number] * Differential, auto (01/02/2025 4:56 PM CDT) [...] Neutrophil pct 63.4 % [facility] ([place] Comment: Interpretive Data Percent cell count reference [...] Final R esult [facility] ([place]) [address] [facility] [place] [address] * CBC with auto differential (01/02/2025 4:56 [...] R esult [facility] ([place] [address] [facility] [place] [address] * Lipase (01/02/2025 4:56 PM CDT) Lipase 26 10 - 99 Units/L Blood Venous blood specimen / Unknown 01/02/2025 4:56 PM CDT 01/02/2025 5:00 PM CDT Ellis Jang MD LAB BLOOD ORDERABLES Final R esult [facility] [address] [facility] [place] [address] * (ABNORMAL) Comprehensive metabolic panel (01/02/2025 4:56 [...] R esult [facility] ([place] [address] [facility] [place] [address] * Diabetic Eye Exam (11/22/2024) Generic External Data Provider HEALTH MAINTENANC E Final Result * eGFR (11/19/2024 9:15 AM RISK CONTROL PRODUCT LIABILITY DIRECTOR) eGFR 81 >=60 mL/min/1. 73 m2 Comment: [...] last reviewed 2021. Blood 11/19/2024 9:15 AM RISK CONTROL PRODUCT LIABILITY DIRECTOR 11/19/2024 9:32 AM RISK CONTROL PRODUCT LIABILITY DIRECTOR Moise Flores MD LAB BLOOD ORDERABLES Fi nal Result [facility] ([place] [address] [facility] [place] [address] * Differential, auto (11/19/2024 9:15 AM RISK CONTROL PRODUCT LIABILITY DIRECTOR) Neutrophil abs 3.1 1.5 - 6.5 K/cumm [...] revised on 2018. Blood 11/19/2024 9:15 AM RISK CONTROL PRODUCT LIABILITY DIRECTOR 11/19/2024 9:32 AM RISK CONTROL PRODUCT LIABILITY DIRECTOR us Moise Flores MD LAB BLOOD ORDERABLES Fi nal Result [facility] [address] [facility] [place] [address] * Thyroid Function Jackson (11/19/2024 9:15 AM RISK CONTROL PRODUCT LIABILITY DIRECTOR) [facility] TSH 1.51 0.30 - 4.20 mcIUnit/mL Blood 11/19/2024 9:15 AM RISK CONTROL PRODUCT LIABILITY DIRECTOR 11/19/2024 9:32 AM RISK CONTROL PRODUCT LIABILITY DIRECTOR Moise Flores MD LAB BLOOD ORDERABLES Fi nal Result [facility] [address] [facility] [place] [address] * (ABNORMAL) Iron profile w/ IBC (11/19/2024 9:15 AM RISK CONTROL PRODUCT LIABILITY DIRECTOR) [facility] Iron 93 50 - 150 mcg/dL TIBC 434(H) 250 - 400 mcg/dL [facility] ([place] Transferrin saturation 21 20 - 50 % [facility] Blood 11/19/2024 9:15 AM RISK CONTROL PRODUCT LIABILITY DIRECTOR 11/19/2024 9:32 AM RISK CONTROL PRODUCT LIABILITY DIRECTOR Moise Flores MD LAB BLOOD ORDERABLES Fi nal Result Performing Organization Address City/[facility]/ZIP Co de Phone Number [facility] ([place] 1 [facility] [place] [address] * (ABNORMAL) CBC with auto differential (11/19/2024 9:15 AM RISK CONTROL PRODUCT LIABILITY DIRECTOR) [facility] WBC 5.7 3.8 - 9.9 K/cumm [...] SD 44.6 35.7 - 48.1 fL [facility] ([place]) NRBC abs 0.00 0.00 - 0.01 K/cumm [facility] Blood 11/19/2024 9:15 AM RISK CONTROL PRODUCT LIABILITY DIRECTOR 11/19/2024 9:32 AM RISK CONTROL PRODUCT LIABILITY DIRECTOR Moise Flores MD LAB BLOOD ORDERABLES Fi nal Result Performing Organization Address City/[facility] Co de Phone Number [facility] [address] [facility] [place] [address] * Hemoglobin A1c (11/19/2024 9:15 AM RISK CONTROL PRODUCT LIABILITY DIRECTOR) [facility] Hgb A1C 5.6 4.0 - 5.6 % Estimated Average Glucose 114 mg/dL [facility] Comment: The ADA recommends reporting an estimated Average Glucose (eAG) with all Hemoglobin A1c results using the equation derived from a study of 507 normal and diabetic adults. Minority populations were underrepresented and children were not included. (Diabetes Care 31:2672-3258, 2008). The eAG is not equivalent to a fasting glucose. Blood 11/19/2024 9:15 AM RISK CONTROL PRODUCT LIABILITY DIRECTOR 11/19/2024 9:32 AM RISK CONTROL PRODUCT LIABILITY DIRECTOR Moise Flores MD LAB BLOOD ORDERABLES Fi nal Result [facility] 1 [facility] [place] [address] * (ABNORMAL) Ferritin (11/19/2024 9:15 AM RISK CONTROL PRODUCT LIABILITY DIRECTOR) [facility] Ferritin 15(L) 30 - 400 ng/mL Blood 11/19/2024 9:15 AM RISK CONTROL PRODUCT LIABILITY DIRECTOR 11/19/2024 9:32 AM RISK CONTROL PRODUCT LIABILITY DIRECTOR us Moise Flores MD LAB BLOOD ORDERABLES Fi nal Result [facility] ([place] [address] [facility] [place] [address] * Comprehensive metabolic panel (11/19/2024 9:15 AM RISK CONTROL PRODUCT LIABILITY DIRECTOR) Sodium 140 135 - 145 mmol/L Potassium, [...] [facility] Blood 11/19/2024 9:15 AM RISK CONTROL PRODUCT LIABILITY DIRECTOR 11/19/2024 9:32 AM RISK CONTROL PRODUCT LIABILITY DIRECTOR Moise Flores MD LAB BLOOD ORDERABLES Fi nal Result [facility] [address] [facility] [place] [address] * Hepatitis panel, acute Blood (10/10/2023 9:16 AM RISK CONTROL PRODUCT LIABILITY DIRECTOR) Hep A IgM Nonreactive Nonreactive [facility] Comment: Interpretive Data: If Hep A IgM Ab is reported as Equivocal, a new sample should be drawn in two weeks for testing. Current interpretive data was last revised on 20. Testing performed by: [address] [address] Hep B core IgM Nonreactive Nonreactive [facility] ([place]) Comment: Interpretive Data If HepB Core IgM Ab is reported as Equivocal, a new sample should be drawn in two weeks for testing. Current interpretive data was last revised on 20. Testing performed by: [address] [address] Hep C Ab Nonreactive Nonreactive [facility] [...] last revised on 2020. Testing performed by: [address] [address] HepBsAg Nonreactive Nonreactive [facility] ([place]) Comment:Testing performed by : [address] [address] Blood 10/10/2023 9:16 AM RISK CONTROL PRODUCT LIABILITY DIRECTOR 10/10/2023 1:48 PM RISK CONTROL PRODUCT LIABILITY DIRECTOR Jose Marroquin MD LAB MICROBIOLOGY - GENERAL O RDERABLES Final Result Performing Organization Address City/[facility]/ZIP Co de Phone Number [facility] [address] [place] [address] * PSA screen (04/14/2023 6:30 AM CDT) PSA-Total <0.10 <=5.40 ng/mL [facility] Comment: Interpretive Data AGE SEX REFERENCE INTERVAL [...] CDT 04/14/2023 7:26 AM CDT Narrative [facility] - 04/14/2023 8:08 AM CDT Fasting us Jose Marroquin MD LAB BLOOD ORDERABLES Final R esult Performing Organization Address [facility] Co de Phone Number [facility] [address] [place] [address] * COLONOSCOPY (12/18/2021 7:19 AM RISK CONTROL PRODUCT LIABILITY DIRECTOR) Anatomical Region Laterality Modality Other Narrative Procedure Note Leopoldo Cutler MD - 12/18/2021 7:19 AM CST [facility] Patient Name: Faustino Leija Procedure Date: 12/18/2021 7:19 AM Date of : 1955 Admit Type: Outpatient Age: 66 Gender: Male Attending MD: Leopoldo Cutler M.D. Room: [facility] ENDOSCOPY ROOM 1 Note Status: Finalized [...] under direct vision. The Pediatric Colonoscope [id number]-H190L [id number] was introducedthrough the anus and advanced to [...] 7:19 AM Procedure Code(s): --- Professional --- 52629, Colonoscopy, flexible; with biopsy, single or multiple Diagnosis Code(s): --- Professional --- Z86.010, Personal history of colonic polyps K64.8, Other hemorrhoids K63.5, Polyp of colon K57.30, Diverticulosis of large intestine without perforation orabscess without bleeding CPT copyright 2019 [employer]. All rights reserved. The codes documented in this report are preliminary and upon band tumbler reviewmay be revised to meet current compliance requirements. Recognized by the [employer] for promoting quality in endoscopy Leopoldo Cutler MD ENDOSCOPY PROCEDURES Final Result from Last 3 Months or Most Recently Relevant to Health Maintenance Insurance [facility] MEDICARE MEDICARE AETNA SENIOR SUPPLEMENT AETNA [employer] MEDICARE SUPPLEMENT MEDICARE AETNA MEDICARE HU[employer] MEDICARE SUPPLEMENT Advance Directives For more information, please contact: [phone] * Full Code (Latest Code Status on File) Date Activated Date Inactivated Comments 12/18/2021 7:21 AM 12/18/2021 1:45 PM * Full Code Date Activated Date Inactivated Comments 12/18/2021 7:20 AM 12/18/2021 7:21 AM * Full Code Date Activated Date Inactivated Comments 12/31/2020 10:03 AM 01/04/2021 6:05 PM Care Teams Entry Level Financial Analyst Relationship Specialty Start Date End Date Moise Flores MD [address] [place] [address] PCP - General Family Medicine 04/27/24 Mario Banda MD [address] [place] [address] Surgeon Orthopedic Surgery 04/27/24 Charles Reddy MD [address] [facility] [address] [place] [address] Consulting Physician Urology 04/27/24 Leopoldo Cutler MD [address] [place] [address] [address] [place] [address] Consulting Physician Gastroenterology 04/27/24 Shari Gaston MD [address] [place], [place] [id number] Referring Physician Dermatology 10/24/24
--- OUTSIDE RECORDS SUMMARY | 2025-01-20 00:12 | XMS_ITS ---
Author Organization [facility] Address [address] [place] [address] Care Team Providers Care Diamond Sawer Name Role Phone Moise Flores MD Primary Care Provider Mario Banda MD Unavailable [phone] Charles Mina MD Unavailable [phone] Leopoldo Cutler MD Unavailable [phone] Shari Gaston MD Unavailable [phone] Active Problems Problem Noted Date Diagnosed Date Renal colic on left side 01/02/2025 History of colon polyps 11/25/2024 Assessment & Plan (11/25/2024 9:34 AM PHYSICAL THERAPY ATTENDANT): - last colonoscopy 2021, repeat in 3-5 years, he has opted to repeat in 5 years per patient Basal cell carcinoma (BCC) of skin of nose 10/24 Assessment & Plan (11/25/2024 9:37 AM PHYSICAL THERAPY ATTENDANT): - recent diagnosis from dermatology by Dr. Gaston - scheduled for Mohs surgery on 02/2025 Primary osteoarthritis of right knee 04/27/2024 Overview (11/25/2024): Follows with orthopedics Assessment & Plan (11/25/2024 9:26 AM PHYSICAL THERAPY ATTENDANT): - chronic, recurring condition, not at goal [...] weeks. Assessment & Plan (11/25/2024 9:30 AM PHYSICAL THERAPY ATTENDANT): - hx of anemia, not present now [...] year. Assessment & Plan (09/12/2022 1:55 PM PHYSICAL THERAPY ATTENDANT): Hemoglobin and ferritin normalized after iron supplementation [...] 09/06/2021 Assessment & Plan (11/25/2024 9:29 AM PHYSICAL THERAPY ATTENDANT): - chronic condition, waxes and wanes - [...] 03/06/2022 Assessment & Plan (12/20/2023 10:37 AM PHYSICAL THERAPY ATTENDANT): Patient should reduce sugar and carbs, increase exercise, maintain proper body weight, and will check an A1c once or twice yearly. Assessment & Plan (04/15/2023 3:26 PM CDT): Patient should reduce sugar and carbs, increase exercise, maintain proper body weight, and will check an A1c once or twice yearly. Assessment & Plan (09/12/2022 1:54 PM PHYSICAL THERAPY ATTENDANT): Patient should reduce sugar and carbs, increase exercise, maintain proper body weight, and will check an A1c once or twice yearly. Assessment & Plan (03/11/2022 1:39 PM CDT): Patient should reduce sugar and carbs, increase exercise, maintain proper body weight, and will check an A1c once or twice yearly. Assessment & Plan (11/07/2021 10:21 AM PHYSICAL THERAPY ATTENDANT): Patient should reduce sugar and carbs, increase exercise, maintain proper body weight, and will check an A1c once or twice yearly. 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 Assessment & Plan (04/15/2023 3:25 PM CDT): Patient is asymptomatic on current dose of levothyroxine and TSH free T4 are normal and we will repeat levels before next visit. Assessment & Plan (09/12/2022 1:55 PM PHYSICAL THERAPY ATTENDANT): Patient is asymptomatic on current dose of levothyroxine and TSH free T4 are normal and we will repeat levels before next visit. Assessment & Plan (03/11/2022 1:38 PM CDT): Patient is asymptomatic on current dose of levothyroxine and TSH free T4 are normal and we will repeat levels before next visit. Assessment & Plan (11/07/2021 10:20 AM PHYSICAL THERAPY ATTENDANT): Continue current dose of levothyroxine check levels before next visit. Assessment & Plan (09/06/2021 9:26 AM PHYSICAL THERAPY ATTENDANT): Patient is asymptomatic on current dose of levothyroxine and TSH free T4 are normal and we will repeat levels before next visit. Assessment & Plan (03/01/2021 3:55 PM CDT): Continue current dose of levothyroxine and check levels before next visit. Essential hypertension 12/31/2020 Overview (11/07/2021): Significant swelling on amlodipine Assessment & Plan (11/25/2024 9:39 AM PHYSICAL THERAPY ATTENDANT): Blood Pressure Management BP Readings from Last [...] 10/10/2023 Assessment & Plan (12/20/2023 10:37 AM PHYSICAL THERAPY ATTENDANT): Blood pressure well controlled on amlodipine, benazepril Assessment & Plan (04/15/2023 3:26 PM CDT): Blood pressure well controlled on amlodipine, benazepril Assessment & Plan (09/12/2022 1:55 PM PHYSICAL THERAPY ATTENDANT): Well controlled on the current regimen. Avoidance of salt, proper body weight, and routine exercise recommended. Assessment & Plan (03/11/2022 1:38 PM CDT): Well controlled on the current regimen. Avoidance of salt, proper body weight, and routine exercise recommended. Assessment & Plan (11/07/2021 10:20 AM PHYSICAL THERAPY ATTENDANT): Edema resolved with discontinuation of amlodipine. Blood pressure well controlled on benazepril 40 mg daily. Check metabolic panel again before next visit. Assessment & Plan (09/06/2021 9:28 AM PHYSICAL THERAPY ATTENDANT): Blood pressure close to goal but his [...] (03/01/2021): S/p prostatectomy 08/2018, Followed by Dr mian with PSA q 6 months Assessment & Plan (11/25/2024 9:28 AM PHYSICAL THERAPY ATTENDANT): - S/p prostatectomy 08/2018, Followed by Dr [...] 05/07/2016 Assessment & Plan (11/25/2024 9:27 AM PHYSICAL THERAPY ATTENDANT): - chronic condition, stable status - currently [...] 11/03/2015 Assessment & Plan (11/25/2024 9:27 AM PHYSICAL THERAPY ATTENDANT): - chronic condition - status: is adequately [...] 10/10/2023 Assessment & Plan (12/20/2023 10:37 AM PHYSICAL THERAPY ATTENDANT): Well controlled on current therapy and will check a lipid panel and LFTs in 6 months. Assessment & Plan (04/15/2023 3:26 PM CDT): Well controlled on current therapy and will check a lipid panel and LFTs in 6 months. Diet and exercise for elevated triglycerides. Assessment & Plan (09/12/2022 1:54 PM PHYSICAL THERAPY ATTENDANT): Well controlled on current therapy and will check a lipid panel and LFTs in 6 months. Assessment & Plan (03/11/2022 1:39 PM CDT): Well controlled on current therapy and will check a lipid panel and LFTs in 6 months. Assessment & Plan (11/07/2021 10:21 AM PHYSICAL THERAPY ATTENDANT): Continue his atorvastatin check lipids and LFTs before next visit. Assessment & Plan (09/06/2021 9:27 AM PHYSICAL THERAPY ATTENDANT): Well controlled on current therapy and will [...] 09/12/202204/27 Assessment & Plan (09/12/2022 1:55 PM PHYSICAL THERAPY ATTENDANT): Most likely related to his episode of [...] 04/27/2024 Assessment & Plan (11/07/2021 10:21 AM PHYSICAL THERAPY ATTENDANT): Resolved with resolution of his peripheral edema. Assessment & Plan (09/06/2021 9:28 AM PHYSICAL THERAPY ATTENDANT): Hold call bilateral lower extremity venous Doppler [...] 11/25/2024 Assessment & Plan (09/06/2021 9:26 AM PHYSICAL THERAPY ATTENDANT): I amsuspecting his lower extremity crampy pain with activities his due to his lumbar degenerative disc disease. He may need to follow-up with neurosurgeon eventually. Insomnia secondary to chronic pain 12/01/2020 04/27/2024
--- OUTSIDE RECORDS SUMMARY | 2025-01-20 00:12 | XMS_ITS | Clinical Summary ---
Author Organization [facility] Care Team Providers Care Brake Lining Finisher Asbestos Name Role Phone Jose Marroquin MD Primary Care Provider [phone] Allergies No known active allergies Medications Aspirin [...] 108.9 kg (240 lb) 11/03/2015 4:09 PM MANUFACTURING MANAGER Height 185.4 cm (6' 1 ) 11/03/2015 4:09 PM MANUFACTURING MANAGER Body Mass Index 31.66 11/03/2015 4:09 PM MANUFACTURING MANAGER Plan of Treatment Health Maintenance Due Date [...] Insurance [employer] SENIOR SU[employer]LEMENTAL MEDICARE Care Teams Brake Lining Finisher Asbestos Relationship Specialty Start Date End Date Jose Marroquin MD PCP - General Internal Medicine 01/18/22
--- OUTSIDE RECORDS SUMMARY | 2025-01-20 00:12 | XMS_ITS | Clinical Summary ---
Author Organization [facility] Address [address] [place] [address] Care Team Providers Care Governor Assembler Name Role Phone Rashaad Patino MD Primary Care Provider [phone] Source Comments [facility],non-owned Affiliates and Associated Physician Practices is amultiple site organization consisting of ambulatory clinics and hospital sitesin [place], [place], [place] and [place]. This disclosure is being madepursuant to the Care Everywhere program and may not contain all information available regarding this patient. Last updated 18.[facility] Allergies No known active allergies Medications * [...] Comments Blood Pressure 138/82 12/21/2020 11:00 AM AIDS NURSE Pulse 82 12/21/2020 11:00 AM AIDS NURSE Temperature 37 C (98.6 F) 12/21/2020 11:00 AM AIDS NURSE Respiratory Rate 18 12/21/2020 11:00 AM AIDS NURSE Oxygen Saturation 98% 12/21/2020 11:00 AM AIDS NURSE Inhaled Oxygen Concentration - - Weight 104.3 kg (230 lb) 12/20/2020 1:41 PM AIDS NURSE Height 185.4 cm (6' 1 ) 12/20/2020 1:41 PM AIDS NURSE Body Mass Index 30.34 12/20/2020 1:41 PM AIDS NURSE Plan of Treatment Health Maintenance Due Date [...] (CALCIUM TOTAL) AM Draw 12/21/2020 4:52 AM AIDS NURSE Numbness of perineum from Last 3 Months or Most Recently Relevant to Health Maintenance Results * (ABNORMAL) BASIC METABOLIC PANEL (CALCIUM TOTAL) (12/21/2020 4:52 AM AIDS NURSE) Glucose 97 70 - 105 mg/dL 12/21/2020 5:37 AM AIDS NURSE [facility] Sodium 135(L) 136 - 145 mmol/L 12/21/2020 5:37 AM AIDS NURSE [facility] Potassium 4.2 3.5 - 5.1 mmol/L 12/21/2020 5:37 AM AIDS NURSE [facility] Chloride 107 98 - 107 mmol/L 12/21/2020 5:37 AM [facility] CO2 22(L) 23 - 31 mmol/L 12/21/2020 5:37 AM AIDS NURSE [facility] Calcium 8.7 8.4 - 10.4 mg/dL 12/21/2020 5:37 AM [facility] Anion Gap 6(L) 8 - 18 mmol/L 12/21/2020 5:37 AM [facility] Comment:Attention clinician: Reference Range change. BUN 24 8.4 - 25.7 mg/dL 12/21/2020 5:37 AM [facility] Creatinine 0.79 0.72 - 1.25 mg/dL 12/21/2020 5:37 AM [facility] eGFR by MDRD >60 >60 mL/min/1.7 3m2 12/21/2020 5:37 AM [facility] eGFR by MDRD >60 >60 mL/min/1.7 3m2 12/21/2020 5:37 AM [facility] Blood BLOOD SPECIMEN / Unknown Venipuncture / Unknown 12/21/2020 4:52 AM AIDS NURSE 12/21/2020 5:02 AM AIDS NURSE Ro Solorio APRN-[facility] - NEEDLE LEADER RY ORDERABLES [facility] [address] [place] [address] from Last 3 Months or Most Recently Relevant to Health Maintenance Advance Directives * Full Code (Latest Code Status on File) Date Activated Date Inactivated Comments 12/20/2020 3:36 PM 12/21/2020 12:23 PM Care Teams Governor Assembler Relationship Specialty Start [place] [id number] [address] PCP - General Internal Medicine 09/22/20
--- NOTE | 2025-01-20 06:16 | WPDHPUPDATE1 ---
History and Physical Update Update Date/Time: 01/20/25 06:16 History and Physical has been reviewed, including an updated exam of the patient. There are NO changes in the patient's condition. Risks, benefits, and alternatives have been discussed and questions answered. Patient agrees to proceed with procedure.
--- NOTE | 2025-01-20 07:09 | SUR.PREOP ---
0635 PT TO XRAY
--- NOTE | 2025-01-20 07:09 | SUR.PREOP ---
[address]
[2025-01-20] MEDS: LACTATED RINGERS 1,000 ML 30 ML IV CONT (07:25)
--- NOTE | 2025-01-20 08:14 | WPDANESEPPF ---
Anes - Initial Pre Proc Eval Procedure: Operation Date: 01/20/25 08:30 Proposed Procedures p Cystoscopy, Left Ureteroscopy, Left Stone Extraction, Possible Holmium Laser, Possible Left Retrograde Pyelogram, Possible Left Stent Placement - Charles Reddy MD Date/Time: 01/20/25 08:14 Surgeon: Charles Reddy MD Pre Op Diagnosis: Lt Ureteral Stone Patient Data Age: 69 Gender: M Height: 1.85 m Weight: 104 kg Last Vital Signs Temp 97.2 F L 01/20/25 06:28 Pulse 68 01/20/25 06:28 Resp 16 01/20/25 06:28 BP 145/76 H 01/20/25 06:28 Pulse Ox 100 01/20/25 06:28 O2 Del Method Room Air 01/20/25 06:28 Allergies Allergy/AdvReac Type Severity Reaction Status Date / Time No Known Allergies Allergy Verified 01/14/25 15:04 Home Medications ?Medication ?Instructions ?Recorded ?Confirmed ?Type amlodipine 5 mg tablet 5 mg PO DAILY 01/14/25 01/20/25 History aspirin 81 mg chewable tablet 81 mg PO DAILY 01/14/25 01/20/25 History (Aspirin Childrens) atorvastatin 10 mg tablet 10 mg PO QPM 01/14/25 01/20/25 History benazepril 40 mg tablet 40 mg PO DAILY 01/14/25 01/20/25 History cholecalciferol (vitamin D3) 25 1,000 unit PO DAILY 01/14/25 01/20/25 History mcg (1,000 unit) chewable tablet (VitaJoy Daily D) docusate sodium 100 mg capsule 100 mg PO DAILY 01/14/25 01/20/25 History (Colace) esomeprazole magnesium 40 mg 40 mg PO Q24H 01/14/25 01/20/25 History capsule,delayed release glucosam 750 mg-chondroi 100 1 tablet PO DAILY 01/14/25 01/20/25 History mg-hyalur 1.65 mg-CF borate 108 mg tablet levothyroxine 25 mcg tablet 25 mcg PO DAILY 01/14/25 01/20/25 History multivit-iron 18 mg-folic acid 400 1 tablet PO DAILY 01/14/25 01/20/25 History mcg-calcium 500 mg-minerals tablet (Daily Multiple For Women) tamsulosin 0.4 mg capsule 0.4 mg PO Q24H 01/14/25 01/20/25 History Patient hx anesthesia problems: none Family hx anesthesia problems: none Results Review: All pre-operative results and documents have been reviewed as part of the pre-operative evaluation. [facility] Social History Social History Smoking status: Never smoker Drinks per week: 15 Alcohol use details: 3 drinks 5 times a week Substance use: never Living arrangements: with family Additional living arrangements comments: Spiritual care concerns: No Anes - Eval Final PreProcedure Day of Procedure 01/20/25 08:14 Patient weight: obese Lungs: normal air movement Airway: Mallampati scale class II Neurological: alert and oriented Last oral intake: >/= 8 hours ASA classification: III Emergent: no Anesthetic plan: proceed Anesthesia type and monitoring: general LMA and standard monitoring Results Review: All pre-operative results and documents have been reviewed as part of the pre-operative evaluation. HTN, hyperlipidemia, hypothyroidism, hx of DVT/PE after back sx several years ago. Informed Consent: The patient's anesthetic plan and its attendant risks and benefits were discussed with the patient/family/POA. Questions were solicited and answers provided to the satisfaction of the patient/family/POA.
[2025-01-20] MEDS: ceFAZolin 2 GM/D5W 50 ML 2 GM/50 ML BAG IVPB (08:17)
[2025-01-20] MEDS: KETOROLAC 30 MG/ML VIAL (*BKC) IV PUSH (08:41)
--- NOTE | 2025-01-21 08:55 | W.PM.PROC2 ---
Procedure Note - Detailed Date of Procedure 01/21/25 Pre-op Diagnosis Lt Ureteral Stone Post-op Diagnosis Same Procedure Performed Cystoscopy, left ureteroscopy with stone extraction Surgeon Charles Reddy MD Anesthesia General Description of Procedure The patient was brought to the operative suite where he is prepped and draped in a routine sterile fashion while in the dorsal lithotomy position after the uneventful induction of a general LMA anesthetic. A 19F rigid cystoscope was placed in the bladder. There are no urethral strictures. The bladder mucosa was endoscopically normal without hyperemia or neoplasm. There was a single, orthotopic ureteral orifice bilaterally. A 0.035 glidewire was advanced into the left renal pelvis under fluoroscopy. The distal ureter was dilated with an 8F/10F ureteral dilator. Ureteroscopy was undertaken with a short, tapered, semi-rigid ureteroscope and the stone was extracted with ease using a 1.9F Escape disposable stone basket. Due to the ease of this manipulation I opted not to place a ureteral stent. The patient's bladder was emptied and was taken to the recovery room having tolerated this procedure well. Drains No Packing No Pathology None sent
== END 2025-01-20 10:16 | disposition home or self-care (01) ==
PROVIDERS: PCP Family Medicine; Visit Provider Urology
PROC: (CPT 52352; principal; 2025-01-20 08:30)
DX: N20.1 Calculus of ureter (principal); I10 Essential (primary) hypertension; E03.9 Hypothyroidism, unspecified; K21.9 Gastro-esophageal reflux disease without esophagitis; E78.00 Pure hypercholesterolemia, unspecified; N52.31 Erectile dysfunction following radical prostatectomy; E66.9 Obesity, unspecified; Z68.30 Body mass index [BMI] 30.0-30.9, adult; Z79.82 Long term (current) use of aspirin; Z98.890 Other specified postprocedural states; Z85.46 Personal history of malignant neoplasm of prostate; Z86.711 Personal history of pulmonary embolism; Z86.718 Personal history of other venous thrombosis and embolism; Z87.19 Personal history of other diseases of the digestive system; Z80.42 Family history of malignant neoplasm of prostate
CPT/HCPCS: 52352; 36415; 74018; 74176; 80048; 82365; 85610; 85730; 88300; 93005; 99199; C1769; J0690; J1100; J1885; J2003; J2405; J2704; J3010; J7120; Q9966